=== PATIENT | male | born 1950 | race Caucasian/White ===

== ENCOUNTER 2023-11-27 21:59 | Inpatient (IN) | payer MEDICARE, OTHER, SELFPAY ==
[2023-11-27 17:44] VITALS: BP 134/76
[2023-11-27 18:10] LABS: % Basophils 0.2 % (0-2); % Eosinophils 0.1 % (0-6); % Lymphocytes 5.8 % (20.5-51.1); % Monocytes 11.8 % (1.7-9.3); % Neutrophils 81.1 % (42.2-75.2); Absolute Immature Granulocytes 0.1 10^3/uL (0-0.05); Absolute Lymphocytes 0.6 10^3/uL (1.2-3.4); Absolute Monocytes 1.2 10^3/uL (0.1-0.6); Absolute Neutrophils 8.3 10^3/uL (1.4-6.5); Hematocrit 35.4 % (39.0-52.0); Mean Corp Hgb Conc. 33.9 g/dL (33.0-37.0); Mean Corpuscular Hgb 29.1 pg (27.0-31.0); Mean Corpuscular Volume 85.7 fL (80.0-94.0); Mean Platelet Volume 10.4 fL (7.4-10.4); Nucleated Red Blood Cells % 0 % (-); Platelet Count 371 10^3/uL (130-400); Red Blood Cell Count 4.13 10^6/uL (4.70-6.10); Red Cell Dist. Width 12.3 % (11.5-14.5); White Blood Cell Count 10.2 10^3/uL (4.8-10.8)
[2023-11-27 18:30] LABS: NT-proBNP 325 pg/ml
[2023-11-27 18:31] LABS: ALT (SGPT) 61 U/L (0-50); AST (SGOT) 43 U/L (17-59); Albumin 3.5 g/dl (3.5-5.0); Alkaline Phosphatase 102 U/L (38-126); Blood Urea Nitrogen 48 mg/dl (9-20); Calcium 8.8 mg/dl (8.4-10.2); Carbon Dioxide 19 mmol/L (22-30); Chloride 101 mmol/L (98-107); Glucose 225 mg/dl (70-99); Potassium 5.7 mmol/L (3.5-5.1); Sodium 129 mmol/L (135-145); Total Bilirubin 1.3 mg/dl (0.2-1.3); Total Protein 5.9 g/dl (6.3-8.2); eGFR 32.83
[2023-11-27 19:21] VITALS: BP 131/80
--- NOTE | 2023-11-27 19:56 | ED.GENMED ---
History of Present Illness
General
Chief Complaint: Breathing Problem
Source: patient
Exam Limitations: none
Time Seen by Provider: 11/27/23 19:16
Nursing documentation reviewed up to this point in time: agreed with
Travel History
Have you had any contact with someone who has COVID-19?: No
Do you have any symptoms of coronavirus? Fever > 100 degrees, chills, cough, shortness of breath, sore throat, loss of taste or smell, muscle aches, or headache?: No
History of Present Illness
History of Present Illness:
The patient is a 73-year-old man with a past medical history of CHF, A-fib and renal transplant who reports that he has been retaining fluid, primarily in his abdomen, and is very short of breath on exertion. His reports that despite his Lasix
dose being tripled, he is still retaining fluid. He denies cough and fever. He denies chest pain. Patient was recently admitted for CHF and cardioversion for A-fib. He reports he has been taking his Eliquis as prescribed.
Past History
Past History
ED Past Medical History: HTN, IDDM and Renal failure
ED Past Surgical History: Other (Renal transplant)
Social History
Tobacco: Non-smoker
Alcohol: Occasional
Drug: None
Personal:
Living: with family
Employment: Employed
Family History
Family History: Other
Review of Systems
Review of Systems
Allergies reviewed?: Yes
Other source history: other (Spouse)
All Other Systems: ROS reviewed and negative except as documented in HPI and ROS
Constitutional: Reports weight gain and fatigue
EENT: Reports no symptoms
Respiratory: Reports trouble breathing
Cardiac: Reports no symptoms
ABD/GI: Reports no symptoms
: Reports no symptoms
Musculoskeletal: Reports no symptoms
Skin: Reports no symptoms
Neurological: Reports no symptoms
Endocrine: Reports no symptoms
Hematologic/Lymphatic: Reports no symptoms
Psychiatric: Reports no symptoms
Phy Exam
Physical Exam
Physical Exam:
Physical Exam
General: Nontoxic but tired appearing, and mildly tachypneic with speaking
Neck: supple. no meningeal signs. normal psoterior pharynx
Heart: s1/s2 regular rate and rhythm,
Lungs: Mild tachypnea with speaking. Basilar crackles
Abdomen: normal bowel sounds. not tender. no CVAT. Abdomen is firm and distended
Neuro: alert and oriented. no focal neurological deficits
Skin: no rash
Psychiatric: well kept. interactive and cooperative
Extremities: Trace edema bilateral lower extremities. Negative Homans' sign.
Scores
Heart Failure Risk
Heart Failure Risk Score: Not Applicable
Course
Orders/Labs/Results
Orders:
Orders
11/27/23 Dinner
Cholesterol Lowering
At Your Request: Full Participation
Fluid Restriction: 1200 mL/day (40 oz)
Cholesterol Lowering: Sodium, 2 Gram
11/27/23 17:50
Electrocardiogram (*1) Urgent
Reason for Study: Shortness of Breath
EKG- Treatment ONCE
11/27/23 18:00
BNP [NT-proBNP] Stat
Complete Blood Count/With Diff Urgent
Comprehensive Metabolic Panel Urgent
11/27/23 20:27
CR Chest - 2 Views Urgent
Comment:
Reason For Exam: SOB
11/27/23 21:28
Admit/Transfer Patient As Directed
Co-Sign Provider:
Level of Care: Inpatient admission
Assign to:: Telemetry
Physician / Group: emigdio
Diagnosis: hfpef exacerbation, PATRICE
Reason for Telemetry: Acute Heart Failure
Date to Stop Telemetry: 11/30/23
Time to Stop Telemetry: 11:00
Reason for Hospitalization: hfpef exacerbation, PATRICE
Expected length of stay greater than two midnights?: Yes
ELOS- Estimated Length of Stay in days: 2
I certify the patient meets the requirements for IP care: Yes
11/27/23 21:29
Code Status As Directed
Resuscitation Status: Full Code
11/27/23 21:42
Furosemide [Lasix] 80 mg IV NOW STA
11/27/23 21:43
US Abdomen Limited Urgent
Comment:
Reason For Exam: ascites
11/27/23 23:00
cycloSPORINE [SandIMMUNE] 75 mg PO HS
11/27/23 23:22
Acetaminophen [Tylenol] 1,000 mg PO Q6HPRN PRN
Dextrose 50%-Water [Dextrose 50% Syringe] 12.5 grams IV [id number] PRN
Glucagon [GlucaGen] 1 mg IM PRN PRN
Rosuvastatin Calcium [Crestor] 5 mg PO HS
Sotalol [Betapace] 80 mg PO Q12
11/27/23 23:22
VTE Contraindication Routine
VTE Mechanical Device Contraindication: Medical Contraindication
Pharmocologic Contraindication: Medical Contraindication
Activity As Directed
Activity Level: As Tolerated
Bedside Glucose Monitoring As Directed
Frequency: AC&HS
Comment: Change to q6h if pt on TPN, tube feeding or not eating
Bladder Scan As Directed
Follow Bladder Retention/Intermittent Cath Algorithm?: Yes
PRN if no void in __ hours: 6
Frequency: Per Retention Algorithm
If Bladder Scan Result >: 400
then:: Straight cath
I/O [Intake/ Output] As Directed
Frequency: q12h
Straight Cath As Directed
Frequency: Per Retention Algorithm
Additional Instructions: straight cath as needed per acute urinary retention algorithm for 24 hrs
Additional Instructions: for bladder scan greater than 400 mL
Vital Signs As Directed
Frequency: Per unit guidelines
Weight As Directed
Frequency: Daily
11/28/23 06:00
Complete Blood Count/With Diff IN AM
Comprehensive Metabolic Panel IN AM
11/28/23 07:30
Insulin Aspart Corrective Low [Novolog Flexpen-Low Resistance] See Protocol SC AC
11/28/23 08:00
Apixaban [Eliquis] 5 mg PO BID
Carvedilol [Coreg] 6.25 mg PO BID
Diltiazem Extended Release [Cardizem Cd] 240 mg PO DAILY
Furosemide [Lasix] 80 mg PO BID AT 0800,1600
Magnesium l-Lactate [Mag-Tab Sr] 84 mg PO BID
Prednisone [Deltasone] 5 mg PO DAILY
cycloSPORINE [SandIMMUNE] 100 mg PO DAILY
11/28/23 09:00
Cholecalciferol (Vitamin D3) [VITAMIN D3 (cholecalciferol)] 50 mcg PO DAILY@0900
11/30/23 11:00
DC Protocol for Telemetry ONCE
Abnormal Lab Results
11/27/23
18:00
RBC 4.13 L 10^6/uL
(4.70-6.10)
Hgb 12.0 L g/dL
(13.0-18.0)
Hct 35.4 L %
(39.0-52.0)
Abs Immat Gran (auto) 0.1 H 10^3/uL
(0-0.05)
Absolute Neuts (auto) 8.3 H 10^3/uL
(1.4-6.5)
Absolute Lymphs (auto) 0.6 L 10^3/uL
(1.2-3.4)
Absolute Monos (auto) 1.2 H 10^3/uL
(0.1-0.6)
Immature Gran % 1.0 H %
(0-0.5)
Neutrophils % 81.1 H %
(42.2-75.2)
Lymphocytes % 5.8 L %
(20.5-51.1)
Monocytes % 11.8 H %
(1.7-9.3)
Sodium 129 L mmol/L
(135-145)
Potassium 5.7 H mmol/L
(3.5-5.1)
Carbon Dioxide 19 L mmol/L
(22-30)
BUN 48 H mg/dl
(9-20)
Creatinine 2.1 H mg/dL
(0.7-1.3)
Glucose 225 H mg/dl
(70-99)
ALT 61 H U/L
(0-50)
Total Protein 5.9 L g/dl
(6.3-8.2)
11/27/23 18:00
11/27/23 18:00
Vital Signs
Initial and Last Documented VS:
Initial Vital Signs
Temp Pulse Resp BP Pulse Ox
97.8 F 64 16 134/76 97
11/27/23 17:44 11/27/23 17:44 11/27/23 17:44 11/27/23 17:44 11/27/23 17:44
Last Documented Vital Signs
Temp Pulse Resp BP Pulse Ox
97.7 F 70 16 128/82 93
11/27/23 23:40 11/27/23 23:40 11/27/23 23:40 11/27/23 23:40 11/27/23 23:40
MDM/Problems Addressed
Differential Diagnosis Includes:
Acute renal failure, acute CHF, PE, pneumonia
MDM/Problems Addressed:
Patient presents with acute shortness of breath and weight gain
Chronic conditions affecting care: Cardiomyopathy, Arrhythmia and Kidney disease
Acute Exacerbation and/or Progression of Chronic Illness:
Patient's presentation may represent acute exacerbation of chronic renal disease
Acute Exacerbation and/or Progression of Chronic Illness: HTN
*Radiology
Radiology exam reviewed: preliminary read by ED provider (Chest x-ray read by me. Bilateral pleural effusions) and radiology read reviewed
*Pulse Oximetry
Patient hypoxic: no
*EKG
Interpreted by ED Provider?: Yes
Interpretation: abnormal
Comparison EKG: no changes
Rate: normal
Rhythm: sinus
[place]: normal axis
Interval: normal interval
QRS Pattern: low voltage
Ischemia: non-specific ST changes
*Semi Driver Interpretation
Rate: normal
Interpretation: normal
Rhythm: sinus
*Critical Care Note
Total Time (30-74mins, 75-104mins- exclusive of procedures): Not Applicable
Data Reviewed
Review of Other/Old Records Reveals: Discharge Summary (Discharge summary reviewed from 11/24/2023 when patient had been admitted for hypoxic respiratory failure thought to be due to A-fib and CHF)
Source: patient, spouse and previous hospital records
Patient Management
Discussion with other providers: Hospitalist
Escalation/DeEscalation of care consider admission/obs:
Given patient's tachypnea and acute renal failure, decision made to admit the patient
ED Attending Note
-
Portions of this chart may have been created with voice recognition software.� Occasional wrong word or��sound alike� substitutions may have occurred due to the inherent limitations of voice recognition software.
Discharge Plan
Departure
Patient Disposition: Admit
Date of Disposition: 11/27/23
Time of Disposition: 20:13
Admit to: Telemetry
Presentation/result/management discussed w/ accepting MD/DO: Hospitalist
Patient with high blood pressure during this ER visit?: Yes
Condition: Fair
Covid-19: Not Applicable
Discharge Problem:
Acute renal failure (ARF), Acute hyperkalemia, Bilateral pleural effusion
Interventions
Interventions:
*Risk Screen - Suicide Last Done: 11/28/23 00:03
*General Assessment Last Done: 11/27/23 17:44
*Neglect/Abuse Screening Last Done: 11/27/23 17:44
ED- Fall Risk Assessment Last Done: 11/27/23 21:03
*ED COVID-19 Vaccine History Last Done: 11/28/23 00:03
*Nursing Disposition Last Done: 11/27/23 23:20
ED- Cardiac Assessment Last Done: 11/27/23 21:03
ED- Pulmonary Assessment Last Done: 11/27/23 21:03
Discharge Date and Time
Discharge Date/Time: 11/27/23 23:20
--- NOTE | 2023-11-27 20:51 | HPS.HSE ---
Family Physician
-
Family Physician: Naomy Conteh
Chief Complaint
-
Allergies
Allergy/AdvReac Type Severity Reaction Status Date / Time
epinephrine [Epinephrine] Allergy passed out Verified 11/18/23 07:54
ibuprofen [From Advil] Allergy Kidney Verified 11/19/23 21:53
transplant
Home Medications
prednisone 5 mg tablet 5 mg PO DAILY 09/13/20
rosuvastatin 5 mg tablet 5 mg PO HS High cholesterol 09/28/21
magnesium chloride 71.5 mg (magnesium chloride) tablet,delayed release (Slow-Mag) 143 mg PO BID 11/16/23
acetaminophen 500 mg tablet (Tylenol Extra Strength) 1,000 mg PO Q6HPRN PRN mild pain 11/18/23
cholecalciferol (vitamin D3) 50 mcg (2,000 unit) capsule 50 mcg PO DAILY@0900 11/18/23
cyclosporine 100 mg capsule 100 mg PO DAILY 11/18/23
cyclosporine 25 mg capsule 75 mg PO HS 11/18/23
insulin glargine 100 unit/mL (3 mL) subcutaneous pen (Lantus Solostar U-100 Insulin) 25 unit SC BID 11/18/23
apixaban 5 mg tablet (Eliquis) 5 mg PO BID #60 tabs 11/24/23
carvedilol 6.25 mg tablet 6.25 mg PO BID #60 tabs 11/24/23
diltiazem HCl 240 mg capsule,extended release 24 hr 240 mg PO DAILY #30 caps 11/24/23
potassium chloride 20 mEq tablet,extended release(part/cryst) 40 meq PO DAILY #30 tabs 11/24/23
sotalol 80 mg tablet 80 mg PO Q12H #60 tabs 11/24/23
furosemide 40 mg tablet 80 mg PO BID 11/27/23
tirzepatide 5 mg/0.5 mL subcutaneous pen injector (Mounjaro) 5 mg SC TU 11/27/23
History of Present Illness
73-year-old male with past medical history of HFpEF, pericardial effusion, atrial fibrillation on Eliquis, hypertension, renal transplant, diabetes, obesity, hyperlipidemia presenting for worsening abdominal distention since his recent discharge.
He has gained 12 pounds in the past few weeks compared to his dry weight. He is also continue have shortness of breath with minimal exertion. His lower extremity is not so severe. He denies any chest pain. He does feel dizzy when he stands up
but denies any episodes of passing out. He denies any cough or fevers. He has been making minimal urine despite increased dose of Lasix.
Patient was recently admitted from 11/18 to 11/24 for CHF exacerbation and rapid atrial fibrillation. He was diuresed, started on heparin and Cardizem. Cardioversion and BRITTANY was performed unsuccessfully. He underwent repeat cardioversion which was
successful. He was maintained on sotalol and Cardizem and Coreg for rate control and transition to Eliquis. Echocardiogram showed pericardial effusion that appears to be improving. He was recommended follow-up with transplant team at [facility].
Medical History
Past Medical History
Past Medical History: Reports Other (HFpEF, pericardial effusion, atrial fibrillation on Eliquis, hypertension, renal transplant, diabetes, obesity, hyperlipidemia)
Past Surgical History: Reports Other ((Renal transplant))
Social History
Tobacco: Non-smoker
Alcohol: Occasional
Drug: None
Family History
Family History: Not pertinent
Allergies / Home Medications
Allergies reflects when Allergies were last updated in [employer].
Home Medications with original date entered in [employer]
Allergy/Medication List:
Allergies
Allergy/AdvReac Type Severity Reaction Status Date / Time
epinephrine [Epinephrine] Allergy passed out Verified 11/18/23 07:54
ibuprofen [From Advil] Allergy Kidney Verified 11/19/23 21:53
transplant
Home Medications
prednisone 5 mg tablet 5 mg PO DAILY 09/13/20
rosuvastatin 5 mg tablet 5 mg PO HS High cholesterol 09/28/21
magnesium chloride 71.5 mg (magnesium chloride) tablet,delayed release (Slow-Mag) 143 mg PO BID 11/16/23
acetaminophen 500 mg tablet (Tylenol Extra Strength) 1,000 mg PO Q6HPRN PRN mild pain 11/18/23
cholecalciferol (vitamin D3) 50 mcg (2,000 unit) capsule 50 mcg PO DAILY@0900 11/18/23
cyclosporine 100 mg capsule 100 mg PO DAILY 11/18/23
cyclosporine 25 mg capsule 75 mg PO HS 11/18/23
insulin glargine 100 unit/mL (3 mL) subcutaneous pen (Lantus Solostar U-100 Insulin) 25 unit SC BID 11/18/23
apixaban 5 mg tablet (Eliquis) 5 mg PO BID #60 tabs 11/24/23
carvedilol 6.25 mg tablet 6.25 mg PO BID #60 tabs 11/24/23
diltiazem HCl 240 mg capsule,extended release 24 hr 240 mg PO DAILY #30 caps 11/24/23
potassium chloride 20 mEq tablet,extended release(part/cryst) 40 meq PO DAILY #30 tabs 11/24/23
sotalol 80 mg tablet 80 mg PO Q12H #60 tabs 11/24/23
furosemide 40 mg tablet 80 mg PO BID 11/27/23
tirzepatide 5 mg/0.5 mL subcutaneous pen injector (Mounjaro) 5 mg SC TU 11/27/23
Review of Systems
-
History Source: Patient
A 12 point ROS was completed and negative except as noted: Yes
Constitutional: Reports See HPI
EENT: Reports No Symptoms
Respiratory: Reports See HPI
Cardiac: Reports See HPI
Abdomen/GI: Reports No Symptoms
: Reports No Symptoms
Musculoskeletal: Reports No Symptoms
Skin: Reports No Symptoms
Neurological: Reports No Symptoms
Endocrine: Reports No Symptoms
Hematologic/Lymphatic: Reports No Symptoms
Psych: Reports No Symptoms
Physical Exam
Vital Signs
Vital Signs
Temp Pulse Resp BP Pulse Ox
97.8 F 85 28 131/80 97
11/27/23 17:44 11/27/23 19:21 11/27/23 19:21 11/27/23 19:21 11/27/23 19:21
Physical Exam
General: Well Developed, Well Nourished and No Apparent Distress
HEENT: NormoCephalic, Moist mucous membranes and Atraumatic
Respiratory: Clear
Cardiac: S1/S2 and Regular Rhythm; No Murmur or Rub
GI: Soft, Non Tender, Normal Bowel Sounds and Distended; No Organomegaly
Rectal: Deferred by Provider
Musculoskeletal: No Clubbing, No Cyanosis and No Edema
Skin: No Rash
Neuro: Nonfocal/grossly intact
Laboratory Results
-
11/27/23 18:00
11/27/23 18:00
Laboratory Results
Total Bilirubin 1.3 mg/dl (0.2-1.3) 11/27/23 18:00
AST 43 U/L (17-59) 11/27/23 18:00
ALT 61 U/L (0-50) H 11/27/23 18:00
Alkaline Phosphatase 102 U/L (38-126) 11/27/23 18:00
Data Reviewed
-
Lab Data: Labs Reviewed by me
Old Records: Reviewed
Impression/Plan
-
IMPRESSION:
PLAN:
# Volume overload, secondary to acute on chronic HFpEF exacerbation
-Difficult situation as not responding adequately to 80 Lasix BID oral
-Monitor I's and O's
-Daily weights
-Bladder scan protocol
-Give 80 IV Lasix now and observe response
-Check abdominal ultrasound to evaluate for ascites that can be drained
-nephrology consulted
# PATRICE
# Hyperkalemia
-Creatinine 2.1 from 1.2
-Hold potassium supplement
Hyponatremia secondary to volume overload
-Need to monitor with further diuresis
-Fluid restriction 40 oz
History of renal transplant
-Continue cyclosporine
-Continue prednisone
History of pericardial effusion secondary to everolimus versus heart failure
Recently diagnosed atrial fibrillation
-Continue Eliquis
-Continue Coreg
-Continue diltiazem
-Continue sotalol
Essential hypertension
Type 2 diabetes
-Continue Lantus 25 units twice daily
-Insulin sliding scale
Hyperlipidemia
-Continue statin
Obesity
Full code
DVT prophylaxis�Eliquis
Cardiac diet
[2023-11-27 21:00] VITALS: BP 101/86
[2023-11-27 22:37] VITALS: BP 116/79
[2023-11-27] MEDS: LASIX 80 MG IV (22:37)
[2023-11-27 23:40] VITALS: BP 128/82
[2023-11-27 23:53] LABS: Glucose - Point of Care 176 mg/dl (70-99)
[2023-11-28] VITALS (12 sets, daily range): BP systolic 99–133; BP diastolic 68–94; BMI 36.6; BMI 36.4
[2023-11-28] MEDS: BETAPACE PO (00:21)
[2023-11-28] MEDS: SandIMMUNE PO (00:21)
[2023-11-28] MEDS: CRESTOR PO (00:21)
--- NOTE | 2023-11-28 00:37 | PTCARENOTE ---
Patient arrived from the ED via stretcher at approximately 2315. Patient ambulated from stretcher to bed x1 assist - Patient's gait steady, but complains of mild dizziness and shortness of breath on exertion. Patient reports these resolve quickly
with rest. Patient AAOx3, [place]. VSS as documented. Assessment as documented. Patient oriented to room. Bed in lowest position. Call andrew within reach.
[2023-11-28 05:41] LABS: % Basophils 0.2 % (0-2); % Eosinophils 0.2 % (0-6); % Immature Granulocytes 0.7 % (0-0.5); % Lymphocytes 8.2 % (20.5-51.1); % Neutrophils 75.7 % (42.2-75.2); Absolute Immature Granulocytes 0.1 10^3/uL (0-0.05); Absolute Lymphocytes 0.8 10^3/uL (1.2-3.4); Absolute Monocytes 1.5 10^3/uL (0.1-0.6); Absolute Neutrophils 7.4 10^3/uL (1.4-6.5); Hematocrit 34.5 % (39.0-52.0); Hemoglobin 11.4 g/dL (13.0-18.0); Mean Corpuscular Hgb 28.7 pg (27.0-31.0); Mean Corpuscular Volume 86.9 fL (80.0-94.0); Mean Platelet Volume 10.7 fL (7.4-10.4); Nucleated Red Blood Cells % 0 % (-); Platelet Count 357 10^3/uL (130-400); Red Blood Cell Count 3.97 10^6/uL (4.70-6.10); Red Cell Dist. Width 12.2 % (11.5-14.5); White Blood Cell Count 9.7 10^3/uL (4.8-10.8)
[2023-11-28 06:15] LABS: ALT (SGPT) 57 U/L (0-50); AST (SGOT) 32 U/L (17-59); Alkaline Phosphatase 84 U/L (38-126); Blood Urea Nitrogen 55 mg/dl (9-20); Carbon Dioxide 20 mmol/L (22-30); Chloride 98 mmol/L (98-107); Estimated Creatinine Clearance 31 ml/min; Glucose 168 mg/dl (70-99); Sodium 131 mmol/L (135-145); Total Bilirubin 1.2 mg/dl (0.2-1.3); Total Protein 5.3 g/dl (6.3-8.2); eGFR 26.63
[2023-11-28 07:13] LABS: Glucose - Point of Care 151 mg/dl (70-99)
[2023-11-28] MEDS: LANTUS 0.25 UNITS SC (08:27)
[2023-11-28] MEDS: ELIQUIS 5 MG PO (08:29)
[2023-11-28] MEDS: LASIX 80 MG PO (08:29)
[2023-11-28] MEDS: COREG 6.25 MG PO ×2 (08:29→20:13)
[2023-11-28] MEDS: BETAPACE 80 MG PO ×2 (08:30→20:13)
[2023-11-28] MEDS: DELTASONE 5 MG PO (08:30)
[2023-11-28] MEDS: MAG-TAB SR 84 MG PO ×2 (08:30→22:40)
[2023-11-28] MEDS: CARDIZEM CD 240 MG PO (08:30)
[2023-11-28] MEDS: VITAMIN D3 (cholecalciferol) 50 MCG PO (08:38)
[2023-11-28] MEDS: NOVOLOG FLEXPEN-LOW RESISTANCE 1 UNITS SC ×2 (08:38→18:37)
--- NOTE | 2023-11-28 09:54 | CON.MD ---
Consultation - Medical
-
Assessment:
PATRICE
Hyperkalemia
hyponatremia
mild gap met acidosis
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
pericardial effusion
Afib s/p CV 11/17
FSGS
Igg Gammopathy
T2DM
Anemia
HTN
BK viremia (off MMF)
Nephrolithiasis
Obesity
VIKASH
recurrent skin squamous cell cancer
Plan:
Recent d/c few days ago for CHF and Afib
now returns with PATRICE and CHF exacerbation
PATRICE-highly suspect cardiorenal with known pericardial effusion, CHF
check UA, Fena, renal US
also follow bladder scan
cr is up even after diuretics
BP are soft on med, need card eval
probably repeat echo and intervention if needed and RHC
check cyclosporin level
we may have to hold lasix
strict FR 40 ounces/day and low salt diet
IS: recent change from everolimus back to cyclosporine, level drawn again but not trough
continue prednisone 5mg daily. off MMF for BK viremia
avoid nephrotoxins
monitor hyponatremia
hyperkalemia is better
cont- holding losartan. hold mounjaro
d/w pt and
d/w primary
[id number]
[2023-11-28] MEDS: SandIMMUNE 100 MG PO (10:03)
[2023-11-28 10:36] LABS: Urine Albumin 1+ (Neg - Trace); Urine Bilirubin 1+ (Negative); Urine Character Clear (Clear); Urine Color Yellow; Urine Glucose Negative (Negative); Urine Ketone Negative (Negative); Urine Leukocyte 1+ (Negative); Urine Nitrite Negative (Negative); Urine Occult Blood Negative (Negative); Urine Urobilinogen 1+ (Neg - 1+)
[2023-11-28 10:55] LABS: Urine Bacteria Few (Negative); Urine Red Blood Cell None Seen /HPF (0-2)
--- NOTE | 2023-11-28 10:55 | W.PN.HOSP.TC ---
Today's Communication/Plan
-
see A/P
Assessment / Plan
Assessment / Plan
HPI: 73-year-old male with past medical history of HFpEF, pericardial effusion, atrial fibrillation on Eliquis, hypertension, renal transplant, diabetes, obesity, hyperlipidemia; presented for worsening abdominal distention since his recent
discharge.�
He has gained 12 pounds in the past few weeks compared to his dry weight.�He is also continue have shortness of breath with minimal exertion.� His lower extremity is not so severe.� He denies any chest pain.� He does feel dizzy when he stands up but
denies any episodes of passing out.� He denies any cough or fevers.� He has been making minimal urine despite increased dose of Lasix.
Patient was recently admitted from 11/18 to 11/24 for CHF exacerbation and rapid atrial fibrillation.� He was diuresed, started on heparin and Cardizem.� Cardioversion and BRITTANY was performed unsuccessfully.� He underwent repeat cardioversion which was
successful.� He was maintained on sotalol and Cardizem and Coreg for rate control and transition to Eliquis.�Echocardiogram showed pericardial effusion that appears to be improving.� He was recommended follow-up with transplant team at [facility].
A/P:
# Volume overload, secondary to acute on chronic HFpEF exacerbation and ?increased pericardial effusion
# Hyponatremia secondary to volume overload
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
Abdominal ultrasound: Trace free fluid/ascites is seen in the right upper quadrant of the abdomen. No additional abdominal ascites is identified. Small bilateral pleural effusions are noted, left slightly greater than right.
Follow echo
Nephrology on board
Card consulted, possible plan for pericardiocentesis after Eliquis washout
# PATRICE, likely cardiorenal syndrome
# Hyperkalemia, resolved
Creatinine 2.1 -> 2.5; from baseline 1.2
Hold potassium supplement
renal US: No acute abnormality of right iliac fossa transplant kidney identified
# History of renal transplant
Continue cyclosporine
Continue prednisone
renal US: No acute abnormality of right iliac fossa transplant kidney identified
# History of pericardial effusion secondary to everolimus versus heart failure
# Recently diagnosed atrial fibrillation
Continue Eliquis
Continue Coreg, Diltiazem, Sotalol
# Essential hypertension
# Type 2 diabetes
Continue Lantus 25 units twice daily
Insulin sliding scale
# Hyperlipidemia
Continue statin
# Obesity
BMP 36
Full code
DVT prophylaxis�Off Eliquis, use SCD
DW RN
DW at bedside
Anticipated Discharge: > 48 hours
Subjective/Interval History
-
Date of Service: November 28, 2023
Objective Data
-
Labs:
Laboratory Results
11/28/23
05:14
WBC 9.7
Hgb 11.4 L
Hct 34.5 L
Plt Count 357
Sodium 131 L
Potassium 5.0
Chloride 98
Carbon Dioxide 20 L
BUN 55 H
Creatinine 2.5 H
Glucose 168 H
Calcium 9.0
Total Bilirubin 1.2
AST 32
ALT 57 H
Alkaline Phosphatase 84
Vital Signs:
Vital Signs
Temp Pulse Resp BP Pulse Ox
36.3 C 68 18 118/70 95
11/28/23 08:11 11/28/23 08:30 11/28/23 08:11 11/28/23 08:30 11/28/23 08:11
I&O
11/27/23 11/28/23 11/29/23
06:59 06:59 06:59
Intake Total 960 / 960
Output Total 380 / 380 150 / 150
Balance 580 / 580 -150 / -150
Review of Systems
-
History Source: Patient
Respiratory: Reports Trouble Breathing
Abdomen/GI: Reports Other (abdominal distension)
Physical Exam
-
General: Well Developed, Well Nourished, No Apparent Distress, Comfortable, Conversant and Obese; Negative Respiratory Distress
HEENT: Normocephalic, Atraumatic, Nose Appears Normal and Ears Appear Normal; Negative Oxygen
Respiratory: Clear to Auscultation and Non Labored Respirations
Cardiac: Regular Rhythm and S1/S2
GI: Soft, Nontender, Nondistended and Normal Bowel Sounds
Skin: Warm and Dry
Neuro: Awake, Alert, Oriented and AO x 3
Psych: Calm and Intact Judgement/Insight
Data Reviewed
-
Labs: Labs Reviewed by me
[2023-11-28 10:56] LABS: Urine Granular Cast 0-2 /LPF (0)
--- NOTE | 2023-11-28 11:12 | CON.CAR ---
Addendum entered and electronically signed by Donte Caceres MD 11/28/23 13:10:
Patient seen and examined in collaboration with HVAC TECHNICIAN RESIDENTIAL; agree with below.
-73-year-old male with medical history as outlined below, including renal transplant and PAF (on Eliquis); admitted with PATRICE and shortness of breath.
-Pulmonary rate on echocardiogram today shows a large pericardial effusion with likely early signs of tamponade.
-Hold Eliquis; did receive a dose this a.m.
-Likely pericardiocentesis will be planned for tomorrow a.m. (right heart cath will also be done at that time); discussed with Interventional Cardiology.
-Continue playground monitor; notify Cardiology for any signs of hemodynamic instability.
-NPO after midnight.
Original Note:
Consultation
Consultation Request
Date/Time Consultation Requested: 11/28/23 9:30a
Date/Time Consultation Performed: 11/28/23 10:55a
Requesting Provider: Dr. Yuen
Performing Provider: CHEYENNE Thao for Dr. Caceres
Reason for Consultation: sob, HFrEF, pericardial effusion
Medical History
-
Chief Complaint: sob, weight gain, abdominal bloating
History of Present Illness:
Mr. Waterman is a 73 yo male with HTN, HLD, DMII, renal transplant 2020 followed at [facility], new onset paroxysmal Afib last week s/p BRITTANY/DCCV (11/23/23) on Sotalol and Eliquis, PATRICE/CKD, and moderate pericardial effusion on echo 11/20/23, who presents to
the ER from home with worsened SOB, LE edema and abdominal bloating. He was d/c on 11/24/23 on Lasix 40mg BID, which he was taking at home. He spoke with nephrology 11/26/23 who increased Lasix to 80mg BID, but still no improvement so he came to the
ER. He is admitted to the hospitalist service and we are consulted for SOB.
Past Medical History
Past Medical History: Other (as above)
Past Surgical History: Other (renal transplant 2019)
Social History
Tobacco: Non-Smoker
Alcohol: None
Personal:
Living: With Family
Family History
Family History: Reviewed & Not Pertinent
Allergies / Home Medications
Allergy/AdvReac Type Severity Reaction Status Date / Time
epinephrine [Epinephrine] Allergy passed out Verified 11/18/23 07:54
ibuprofen [From Advil] Allergy Kidney Verified 11/19/23 21:53
transplant
Medication Instructions Recorded Confirmed Type
prednisone 5 mg tablet 5 mg PO DAILY 09/13/20 11/27/23 History
rosuvastatin 5 mg tablet 5 mg PO HS High cholesterol 09/28/21 11/27/23 History
magnesium chloride 71.5 mg 143 mg PO BID 11/16/23 11/27/23 History
(magnesium chloride)
tablet,delayed release (Slow-Mag)
acetaminophen 500 mg tablet 1,000 mg PO Q6HPRN PRN mild pain 11/18/23 11/27/23 History
(Tylenol Extra Strength)
cholecalciferol (vitamin D3) 50 50 mcg PO DAILY@0900 11/18/23 11/27/23 History
mcg (2,000 unit) capsule
cyclosporine 100 mg capsule 100 mg PO DAILY 11/18/23 11/27/23 History
cyclosporine 25 mg capsule 75 mg PO HS 11/18/23 11/27/23 History
insulin glargine 100 unit/mL (3 25 unit SC BID 11/18/23 11/27/23 History
mL) subcutaneous pen (Lantus
Solostar U-100 Insulin)
apixaban 5 mg tablet (Eliquis) 5 mg PO BID #60 tabs 11/24/23 11/27/23 Rx
carvedilol 6.25 mg tablet 6.25 mg PO BID #60 tabs 11/24/23 11/27/23 Rx
diltiazem HCl 240 mg 240 mg PO DAILY #30 caps 11/24/23 11/27/23 Rx
capsule,extended release 24 hr
potassium chloride 20 mEq 40 meq PO DAILY #30 tabs 11/24/23 11/27/23 Rx
tablet,extended release(part/cryst)
sotalol 80 mg tablet 80 mg PO Q12H #60 tabs 11/24/23 11/27/23 Rx
furosemide 40 mg tablet 80 mg PO BID 11/27/23 11/27/23 History
tirzepatide 5 mg/0.5 mL 5 mg SC TU 11/27/23 11/27/23 History
subcutaneous pen injector
(Mounjaro)
Review of Systems
-
History Source: Patient
All other systems: Negative unless noted
Physical Exam
Vital Signs
Temp Pulse Resp BP Pulse Ox
97.4 F 68 18 118/70 95
11/28/23 08:11 11/28/23 08:30 11/28/23 08:11 11/28/23 08:30 11/28/23 08:11
Lab Results
11/28/23 05:14
11/28/23 05:14
Gun-P-Pwpunduduzb Pept 325 pg/ml 11/27/23 18:00
Physical Exam
General: Well Developed, Well Nourished and No Apparent Distress
HEENT: Normocephalic and Anicteric
Respiratory: Crackles (bibasilar )
Cardiac: S1/S2, Regular Rhythm and Peripheral Edema (mild to moderate b/l LE)
Breast: Deferred by me
GI: Soft, Non Tender, Normal Bowel Sounds and Distended (mildly)
Rectal: Deferred by Provider
Musculoskeletal: No Clubbing and No Cyanosis
Skin: Warm and Dry
Neuro: AO x 3
Psych: Calm
Impression / Plan
-
SOB - with weight gain and abdominal bloating.
- no improvement with increased outpatient Lasix to 80mg BID for 2 days.
- IV Lasix with close monitoring of renal function.
- need to check an echo given moderate pericardial effusion on echo 11/20/23 and has been on Eliquis since s/p BRITTANY/DCCV.
Afib - paroxysmal.
- maintaining NSR on Sotalol.
- denies palpitations.
- s/p BRITTANY/DCCV 11/23/23.
- OAC with Eliquis 5mg BID.
Pericardial effusion - new, moderate on echo 11/20/23.
- now with worsened SOB and is on Eliquis, check echo now.
- everolimus stopped.
PATRICE - creatinine up to 2.5 today.
- at d/c 11/24/23 creatinine was 1.2.
- nephrology is following.
HTN - stable on meds, monitor.
Dyslipidemia - stable on Rosuvastatin, continue.
DMII - per hospitalist.
Renal transplant - in 2019 at [facility], follows there.
- per nephrology.
Data Reviewed
-
EKG: Tracing Personally Visualized and interpreted (NSR 67 bpm)
Radiology: Report Reviewed by me (CXR: small b/l pleural effusions)
Ultrasound: Report Reviewed by me (abd U/S: trace free fluid/ascites seen in RUQ of the abdomen)
Labs: Labs Reviewed by me
Old Records: Reviewed
[2023-11-28 11:28] LABS: Protein/creatinine Ratio 0.4; Urine Protein 92 mg/dl; Urine Sodium < 5 mmol/L (30-90)
--- NOTE | 2023-11-28 11:30 | CM ---
Initial assessment completed with . Patient was at diagnostic testing. 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
3 D-I-L's. has a RW and has been using it since discharge from hospital last week, kidney transplant 3 years ago. Pharmacy is [facility] in [place] and PCP is Dr. Naomy Conteh. Anticipate no needs at discharge.
[2023-11-28 12:41] LABS: Glucose - Point of Care 233 mg/dl (70-99)
[2023-11-28] MEDS: NOVOLOG FLEXPEN-LOW RESISTANCE 2 UNITS SC (13:25)
[2023-11-28] MEDS: LASIX PO (15:49)
--- NOTE | 2023-11-28 17:43 | ITS.CL.PN ---
Stereoplotter Operator - Procedure Note
Procedure
Procedure Note:
PERICARDIOCENTESIS PROCEDURE NOTE
Date of procedure: 11/28/2023
Referring Physician/Provider: Donte Caceres M.D.
Indication: Large pericardial effusion, early tamponade.
Procedure:
After obtaining consent, the patient was brought to the cardiac cheesemaking laborer and placed in a recumbent position. Echocardiogram was used to ascertain the best approach vector. A(n) apical approach was selected. The fifth intercostal space along the
lateral clavicular line was anesthetized with 1% lidocaine. Under ultrasound guidance, a micropuncture needle was advanced into the pericardial space under negative pressure. After obtaining flashback of pericardial fluid, the micropuncture wire was
advanced into the pericardial space and the needle was removed. The micropuncture sheath was advanced over the wire and the wire and dilator were removed. Agitated saline was injected through the micropuncture sheath confirming its presence in the
pericardial space on echocardiography. A 0.035 inch J-wire was advanced through the micropuncture sheath and into the pericardial space. The micropuncture sheath was removed and a 6 [place] sheath was advanced over the 0.035 inch wire. A pigtail
catheter was advanced through the sheath over the J-wire and placed in the pericardial space. The J-wire was removed. The pericardial pressure was measured. A sufficient sample of pericardial fluid was removed and sent for laboratory testing
(hemoglobin, hematocrit, white blood cell count, LDH, albumin, total protein, cytology and culture). The pigtail catheter was then connected to a Vacutainer and the pericardial space was evacuated. Serial echocardiography confirmed reduction in the
pericardial effusion from severe to trace. All evidence of tamponade was removed. The 6 [place] sheath was sutured into place. The pigtail catheter was likewise sutured into place then curled around the sheath and covered by a sterile Tegaderm.
Repeat pericardial pressure was measured, confirming significant reduction. The pigtail catheter was then connected to a ELISEO drain to suction. The patient reported significant improvement in their shortness of breath.
Procedure Details:
Approach: Apical
Sheath/Drain size (Fr) 6
Pericardial Volume (mL): 660
Effusion type: Bloody.
Non-effusion blood loss (mL): Negligible.
Pericardial pressures
Pre drainage (mmHg): 26
Post drainage (mmHg): 12
Radiation dose:
Dose (mGy): 5.48
DAP (Gy*cm2): 0.7413
Fluoroscopy Time (minutes): 0.2
Conclusions:
1. Successful placement of a 6 [place] pericardial drain via apical approach.
2. Pericardial fluid has been sent for laboratory analysis.
Copy to: Donte Caceres M.D., Naomy Conteh D.O., Gallito Cunningham M.D.
Alex Yusuf DO, FACC, FACP
[2023-11-28 18:13] LABS: Body Fluid Glucose 81 mg/dl; Body Fluid Protein 5.3 g/dl
--- NOTE | 2023-11-28 18:13 | PTCARENOTE ---
Rec'd pt from recyclable materials collector awake and alert with left chest pericardial drain with 50ml serosanguineous drainage. Bedrest for 2 hours. Pt afib on monitor, RA. Pulse ox 95%. See worklist for VS/I and O and assessments.
[2023-11-28 18:33] LABS: Glucose - Point of Care 167 mg/dl (70-99)
[2023-11-28] MEDS: TYLENOL 1000 MG PO (18:39)
[2023-11-28 18:45] LABS: Body Fluid LDH 7281 U/L
[2023-11-28 19:04] LABS: Body Fluid Hematocrit 9.1 %; Body Fluid WBC 14960 /CUMM
[2023-11-28 19:32] LABS: Body Fluid Second Tech EYM
[2023-11-28] MEDS: COLCHICINE 0.599999999999999978 MG PO (20:13)
[2023-11-28 21:44] LABS: Glucose - Point of Care 217 mg/dl (70-99)
[2023-11-28] MEDS: SandIMMUNE 75 MG PO (22:40)
[2023-11-28] MEDS: CRESTOR 5 MG PO (22:40)
[2023-11-28] MEDS: LANTUS 0.100000000000000006 UNITS SC (22:41)
--- NOTE | 2023-11-28 23:06 | PTCARENOTE ---
patient resting in bed comfortably. denies any pain at this time. ambulated to the BR, standby assist, steady on his feet. denies any lightheadedness/dizziness. dyspnea on exertion noted. 95% on RA. Afib on tele 90s-100s. bp 110/70. L chest
pericardial drain intact. serosanguineous drainage. no new drainage at this time. reviewed plan of care with patient and verbalized understanding. educated patient to inform RN with any changes. call andrew within reach.
[2023-11-29] VITALS (9 sets, daily range): BP systolic 79–149; BP diastolic 62–88; BMI 35.8
[2023-11-29 04:22] LABS: Hematocrit 34.5 % (39.0-52.0); Hemoglobin 11.6 g/dL (13.0-18.0); Mean Corp Hgb Conc. 33.6 g/dL (33.0-37.0); Mean Corpuscular Hgb 28.8 pg (27.0-31.0); Mean Corpuscular Volume 85.6 fL (80.0-94.0); Mean Platelet Volume 10.6 fL (7.4-10.4); Platelet Count 321 10^3/uL (130-400); Red Blood Cell Count 4.03 10^6/uL (4.70-6.10); White Blood Cell Count 8.9 10^3/uL (4.8-10.8)
[2023-11-29 04:45] LABS: Blood Urea Nitrogen 60 mg/dl (9-20); Calcium 8.3 mg/dl (8.4-10.2); Carbon Dioxide 24 mmol/L (22-30); Chloride 102 mmol/L (98-107); Estimated Creatinine Clearance 31 ml/min; Glucose 155 mg/dl (70-99); Magnesium 2.3 mg/dl (1.6-2.3); Potassium 4.7 mmol/L (3.5-5.1); Sodium 130 mmol/L (135-145); eGFR 26.63
--- NOTE | 2023-11-29 04:49 | PTCARENOTE ---
patient slept well overnight. Afib on [id number]. patient denies any palpitations. bp 79/62. recheck on R leg-97/67. recheck after 30 min-101/74. patient denies lightheadedness/dizziness. awake and alert. urinating yellow urine in the urinal. no
new output noted overnight in pericardial drain. site intact. call andrew within reach.
[2023-11-29 07:15] LABS: Body Fluid Granulocytes 17 %; Body Fluid Lymphocytes 16 %; Body Fluid Macrophages 67 %
--- NOTE | 2023-11-29 07:20 | W.PN.CD ---
Today's Communication / Plan
-
Hold diuretic
hold OAT
Expect drain removal tomorrow
Impression / Plan
-
SOB - with weight gain and abdominal bloating.
- no improvement with increased outpatient Lasix to 80mg BID for 2 days.
- IV Lasix with close monitoring of renal function.
- pericardial effusion drained last evening by Dr Yusuf. 660 cc bloody fluid removed with symptomatic improvement
- Drain in place- only 15-20 cc further drainage overnight. I think we leave drain in until tomorrow then remove.
- He is comforatble supine. Would hold off on diuretic for now in face of worsening renal function.
Afib - paroxysmal.
- maintaining NSR on Sotalol.
- denies palpitations.
- s/p BRITTANY/DCCV 11/23/23.
- OAC with Eliquis 5mg BID now on hold due to bloody pericardial effusion which grew on OAT
Pericardial effusion - new, moderate on echo 11/20/23.
--Drain in place
PATRICE - creatinine up to 2.5 today- no change vs 11-28.
- at d/c 11/24/23 creatinine was 1.2.
- nephrology is following. Speaking with pt, this may be due to recent change in his anti rejection meds. Expect nephrology has discussed with his transplant team at [facility]
HTN - stable on meds, monitor.
Dyslipidemia - stable on Rosuvastatin, continue.
DMII - per hospitalist.
Renal transplant - in 2020 at [facility], follows there.
- per nephrology.
Physical Exam
Vital Signs/Labs
Vital Signs
Temp Pulse Resp BP Pulse Ox
97.6 F 96 18 101/74 95
11/29/23 04:27 11/29/23 06:45 11/29/23 04:27 11/29/23 04:45 11/29/23 04:27
01/11/29/23 11/30/23
06:59 06:59 06:59
Actual Weight 232 lb 7 oz
11/29/23 04:06
11/29/23 04:06
Magnesium 2.3 mg/dl (1.6-2.3) 11/29/23 04:06
11/27/23
18:00
Ghn-Q-Muhsvckmtrk Pept 325
Physical Exam
Constitutional: No acute distress and Comfortable
Cardiovascular: Rhythm & rate is regular, S1S2 is normal and Murmur/rub/gallop absent
Respiratory: Respiratory effort normal, Lungs clear to auscul., Wheeze Absent and Crackles Absent
GI: Soft and Non tender
Neuro/Psych: AO x 3 and Motor deficits absent
Other: Cath Site (Pericardiocentesis site clean and dry)
Data Reviewed
-
Date of Service: November 29, 2023
--- NOTE | 2023-11-29 08:00 | W.PN.HOSP.TC ---
Today's Communication/Plan
-
see A/P
Assessment / Plan
Assessment / Plan
HPI: 73-year-old male with past medical history of HFpEF, pericardial effusion, atrial fibrillation on Eliquis, hypertension, renal transplant, diabetes, obesity, hyperlipidemia; presented for worsening abdominal distention since his recent
discharge.�
He has gained 12 pounds in the past few weeks compared to his dry weight.�He is also continue have shortness of breath with minimal exertion.� His lower extremity is not so severe.� He denies any chest pain.� He does feel dizzy when he stands up but
denies any episodes of passing out.�He denies any cough or fevers.� He has been making minimal urine despite increased dose of Lasix.
Patient was recently admitted from 11/18 to 11/24 for CHF exacerbation and rapid atrial fibrillation.� He was diuresed, started on heparin and Cardizem.� Cardioversion and BRITTANY was performed unsuccessfully.� He underwent repeat cardioversion which was
successful.� He was maintained on sotalol and Cardizem and Coreg for rate control and transition to Eliquis.�Echocardiogram showed pericardial effusion that appears to be improving.� He was recommended follow-up with transplant team at [facility].
A/P:
# Volume overload, secondary to Large pericardial effusion
# History of pericardial effusion secondary to everolimus versus heart failure
echo noted EF 70-75%, Large pericardial effusion
Lasix on hold due to PATRICE
s/p pericardiocentesis with drain in place 11/28
Cardiology on board to manage drain
# PATRICE, ?cardiorenal syndrome
# Hyperkalemia, resolved
Creatinine 2.1 -> 2.5; from baseline 1.2
Hold potassium supplement
renal US: No acute abnormality of right iliac fossa transplant kidney identified
Lasix on hold
Renal on board
# History of renal transplant
Continue cyclosporine, level pending
Continue prednisone
renal US: No acute abnormality of right iliac fossa transplant kidney identified
Renal on board
# Recently diagnosed paroxysmal atrial fibrillation
s/p BRITTANY/DCCV 11/23/23.
Continue Coreg, Diltiazem, Sotalol with hold parameter
Eliquis 5mg BID on hold due to bloody pericardial effusion
# Essential hypertension
Continue Coreg, Diltiazem, Sotalol with hold parameter
# Type 2 diabetes
resumed home dose Lantus 25 units twice daily
Insulin sliding scale
Carb control diet
# Hyperlipidemia
Continue statin
# Obesity
BMP 36
# Hyponatremia
Full code
DVT prophylaxis�Off Eliquis, use SCD
Anticipated Discharge: > 48 hours
Subjective/Interval History
-
Date of Service: November 29, 2023
Objective Data
-
Labs:
Laboratory Results
11/29/23
04:06
WBC 8.9
Hgb 11.6 L
Hct 34.5 L
Plt Count 321
Sodium 130 L
Potassium 4.7
Chloride 102
Carbon Dioxide 24
BUN 60 H
Creatinine 2.5 H
Glucose 155 H
Calcium 8.3 L
Vital Signs:
Vital Signs
Temp Pulse Resp BP Pulse Ox
36.4 C 100 18 101/74 95
11/29/23 04:27 11/29/23 07:30 11/29/23 04:27 11/29/23 04:45 11/29/23 04:27
I&O
11/28/23 11/29/23 11/30/23
06:59 06:59 06:59
Intake Total 960 / 960
Output Total 380 / 380 1450 / 1450
Balance 580 / 580 -1450 / -1450
Review of Systems
-
History Source: Patient
Respiratory: Denies Trouble Breathing (improved)
Physical Exam
-
General: Well Developed, Well Nourished, No Apparent Distress, Comfortable, Conversant and Obese; Negative Respiratory Distress
HEENT: Normocephalic, Atraumatic, Nose Appears Normal and Ears Appear Normal; Negative Oxygen
Respiratory: Clear to Auscultation and Non Labored Respirations
Cardiac: Regular Rhythm, S1/S2 and Other (pericardial drain )
GI: Soft, Nontender, Nondistended and Normal Bowel Sounds
Skin: Warm and Dry
Neuro: Awake, Alert, Oriented and AO x 3
Psych: Calm and Intact Judgement/Insight
Data Reviewed
-
Labs: Labs Reviewed by me
[2023-11-29 08:40] LABS: Glucose - Point of Care 112 mg/dl (70-99)
[2023-11-29] MEDS: NOVOLOG FLEXPEN-LOW RESISTANCE SC (08:42)
[2023-11-29] MEDS: BETAPACE 80 MG PO ×2 (08:43→20:19)
[2023-11-29] MEDS: MAG-TAB SR 84 MG PO ×2 (08:43→20:19)
[2023-11-29] MEDS: COLCHICINE 0.599999999999999978 MG PO (08:44)
[2023-11-29] MEDS: CARDIZEM CD PO (08:44)
[2023-11-29] MEDS: SandIMMUNE 100 MG PO (08:45)
[2023-11-29] MEDS: DELTASONE 5 MG PO (08:45)
[2023-11-29] MEDS: VITAMIN D3 (cholecalciferol) 50 MCG PO (08:45)
[2023-11-29] MEDS: LANTUS 0.25 UNITS SC ×2 (08:51→22:03)
[2023-11-29] MEDS: LANTUS SC (08:57)
[2023-11-29] MEDS: COREG PO (08:57)
--- NOTE | 2023-11-29 09:23 | CM ---
Reviewed chart. Mr. Waterman was transferred to IVU. Met with Mr. Waterman to review discharge plans. He states prior to admission he reside with is spouse in a two story home with three steps to enter. He states he has a full flight of steps to
get to bedroom/full bathroom. He states he has a powder room on the first floor. He stated prior to admission he was independent with ambulation and adls. He has a rolling walker at home. 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 He states he had
[facility] after his kidney transplant. He states he has a prescription plan and uses [facility]. He has supportive sons and [id number] in the area. Medical work-up in progress. The discharge plan is to return home with his spouse when
medically stable.
[2023-11-29] MEDS: NOVOLOG FLEXPEN-LOW RESISTANCE 1 UNITS SC (12:03)
[2023-11-29 12:04] LABS: Glucose - Point of Care 179 mg/dl (70-99)
--- NOTE | 2023-11-29 13:26 | W.PN.NEPH.PH ---
Today's Communication / Plan
-
see plan
Assessment/Plan
-
Assessment:
PATRICE
Hyperkalemia
hyponatremia
mild gap met acidosis
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
pericardial effusion
Afib s/p CV 11/17
FSGS
Igg Gammopathy
T2DM
Anemia
HTN
BK viremia (off MMF)
Nephrolithiasis
Obesity
VIKASH
recurrent skin squamous cell cancer
Plan:
Recent d/c few days ago for CHF and Afib
now returns with PATRICE and CHF exacerbation-large pericardial effusion s/p tap 660cc on 11/28
cr stable with improving UOP,
highly suspect cardiorenal with pericardial effusion, UA relatively bland and U na low <5
non acute txp renal US
pending cyclosporin level
cont to hold lasix
strict FR 40 ounces/day and low salt diet
IS: recent change from everolimus back to cyclosporine
continue prednisone 5mg daily. off MMF for BK viremia
avoid nephrotoxins
monitor hyponatremia with FR
BP remains soft on low dose coreg
cont- holding losartan. hold mounjaro
Started on Colchicine by cards for with concern of pericarditis , with current renal function will decrease dose -d/w pharmacy
d/w pt and
called Chaychristelle Sánchez and left message to call back
-
-
Date of Service: November 29, 2023
CC / HPI / ROS
-
Chief Complaint:
PATRICE , h/o ktp
History of Present Illness:
cr no change at 2.5, bp low this am but better now
has pericardial drain
UOP 1.5lit and wt decreasing
Review of Systems:
feels better
less sob
no CP
Labs
-
Labs:
WBC 8.9 10^3/uL (4.8-10.8) 11/29/23 04:06
RBC 4.03 10^6/uL (4.70-6.10) L 11/29/23 04:06
Hgb 11.6 g/dL (13.0-18.0) L 11/29/23 04:06
Hct 34.5 % (39.0-52.0) L 11/29/23 04:06
Plt Count 321 10^3/uL (130-400) 11/29/23 04:06
Sodium 130 mmol/L (135-145) L 11/29/23 04:06
Potassium 4.7 mmol/L (3.5-5.1) 11/29/23 04:06
Chloride 102 mmol/L (98-107) 11/29/23 04:06
Carbon Dioxide 24 mmol/L (22-30) 11/29/23 04:06
BUN 60 mg/dl (9-20) H 11/29/23 04:06
Creatinine 2.5 mg/dL (0.7-1.3) H 11/29/23 04:06
eGFR 26.63 11/29/23 04:06
Glucose 155 mg/dl (70-99) H 11/29/23 04:06
Calcium 8.3 mg/dl (8.4-10.2) L 11/29/23 04:06
Zpb-G-Ribozapmtcz Pept 325 pg/ml 11/27/23 18:00
Albumin 3.0 g/dl (3.5-5.0) L 11/28/23 05:14
Physical Exam
-
Vital Signs:
Vital Signs
Temp Pulse Resp BP Pulse Ox
97.5 F 100 20 105/68 94
11/29/23 12:02 11/29/23 10:00 11/29/23 12:02 11/29/23 08:44 11/29/23 12:02
Cardiovascular:: Regular rate and rhythm
Lung Excursion:: Normal (decreased)
Abdomen:: Nontender and Soft
Extremity Edema:: None: Bilateral:
Garcia Catheter: No
[2023-11-29] MEDS: TYLENOL 1000 MG PO (16:29)
--- NOTE | 2023-11-29 17:04 | W.PN.UPDATE ---
Update Note
Progress Note Update
spoke to Ch[facility] nephrology and updated about pt case
[2023-11-29 17:30] LABS: Glucose - Point of Care 232 mg/dl (70-99)
[2023-11-29] MEDS: NOVOLOG FLEXPEN-LOW RESISTANCE 2 UNITS SC (17:30)
--- NOTE | 2023-11-29 18:39 | PTCARENOTE ---
pt continues to be afib on the monitor, HR in the 100s, VSS. pt c/o pain at drain site, Tylenol given as ordered. pt found relief with Tylenol. pt ambulated through the halls with no issues. pt educated on plan of care for the evening and pt
verbalized understanding. call andrew within reach.
[2023-11-29] MEDS: COREG 6.25 MG PO (20:19)
[2023-11-29 21:41] LABS: Glucose - Point of Care 145 mg/dl (70-99)
[2023-11-29] MEDS: CRESTOR 5 MG PO (22:02)
[2023-11-29] MEDS: SandIMMUNE 75 MG PO (22:02)
[2023-11-30] VITALS (7 sets, daily range): BP systolic 96–155; BP diastolic 78–95; BMI 35.5
[2023-11-30 01:59] LABS: Glucose - Point of Care 101 mg/dl (70-99)
[2023-11-30 03:41] LABS: Hematocrit 35.5 % (39.0-52.0); Hemoglobin 12.1 g/dL (13.0-18.0); Mean Corp Hgb Conc. 34.1 g/dL (33.0-37.0); Mean Corpuscular Hgb 29.2 pg (27.0-31.0); Mean Corpuscular Volume 85.7 fL (80.0-94.0); Mean Platelet Volume 10.3 fL (7.4-10.4); Platelet Count 352 10^3/uL (130-400); Red Blood Cell Count 4.14 10^6/uL (4.70-6.10); Red Cell Dist. Width 11.9 % (11.5-14.5); White Blood Cell Count 7.5 10^3/uL (4.8-10.8)
[2023-11-30 04:06] LABS: Blood Urea Nitrogen 48 mg/dl (9-20); Calcium 8.5 mg/dl (8.4-10.2); Carbon Dioxide 27 mmol/L (22-30); Chloride 100 mmol/L (98-107); Estimated Creatinine Clearance 42 ml/min; Glucose 83 mg/dl (70-99); Magnesium 2.3 mg/dl (1.6-2.3); Sodium 135 mmol/L (135-145)
--- NOTE | 2023-11-30 07:35 | W.PN.HOSP.TC ---
Today's Communication/Plan
-
see bold
Assessment / Plan
Assessment / Plan
HPI: 73-year-old male with past medical history of HFpEF, pericardial effusion, atrial fibrillation on Eliquis, hypertension, renal transplant, diabetes, obesity, hyperlipidemia; presented for worsening abdominal distention since his recent
discharge.�
He has gained 12 pounds in the past few weeks compared to his dry weight.�He is also continue have shortness of breath with minimal exertion.� His lower extremity is not so severe.� He denies any chest pain.� He does feel dizzy when he stands up but
denies any episodes of passing out.�He denies any cough or fevers.� He has been making minimal urine despite increased dose of Lasix.
Patient was recently admitted from 11/18 to 11/24 for CHF exacerbation and rapid atrial fibrillation.� He was diuresed, started on heparin and Cardizem.� Cardioversion and BRITTANY was performed unsuccessfully.� He underwent repeat cardioversion which was
successful.� He was maintained on sotalol and Cardizem and Coreg for rate control and transition to Eliquis.�Echocardiogram showed pericardial effusion that appears to be improving.� He was recommended follow-up with transplant team at [facility].
Gen: NAD, AAOx3.
Eyes: EOMI, PERRLA, no scleral icterus.
Neck: supple.
CV: tachy, irreg/irreg, +S1/S2, no m/r/g.
Resp: CTAB, no rales, wheezes, or rhonchi.
Abd: +BS, soft, NT, ND
Skin: No rashes. trace LE edema
Neuro: CN 2-12 intact, non-focal.
Psych: Normal mood and affect.
Echo: Left ventricle is small in size. LV ejection fraction is 70-75%, by visual�assessment. Small� right ventricular size. Normal right ventricular systolic function. Large pericardial circumferential effusion measuring up to 2.5-3.0 cm at its
largest dimension with evidence of tamponade physiology RV diastolic collapse,�tricuspid flow variation (40%), and mitral flow variation (30%).
Renal US: No acute abnormality of right iliac fossa transplant kidney identified
Volume overload due to Large pericardial effusion:
-h/o pericardial effusion secondary to everolimus versus heart failure
-Echo above with large pericardial effusion
-s/p pericardiocentesis with drain in place 11/28/23
-cardiology following
-lasix on hold
-check echo, possible drain removal today
PATRICE:
-likely due to cardiorenal syndrome
-Hyperkalemia, resolved
-h/o renal transplant, cont cyclosporine/prednisone
-Cr improving, now 1.8 (baseline 1.2)
-renal following
Paroxysmal atrial fibrillation:
-s/p BRITTANY/DCCV 11/23/23
-continue Coreg/Diltiazem/Sotalol
-Eliquis on hold due to bloody pericardial effusion
Other problems:
Essential hypertension: Continue Coreg/Diltiazem/Sotalol
DM2: cont Lantus/SSI/accuchecks
Hyperlipidemia: Continue statin
Obesity due to excess calories
Hyponatremia, resolved
Pt's updated over the phone.
FULL/SCDs
Anticipated Discharge: 24 - 48 hours
Subjective/Interval History
-
Date of Service: November 30, 2023
Denies CP/SOB. Reports minimal pericardial drain output.
Objective Data
-
Labs:
Laboratory Results
11/30/23
03:20
WBC 7.5
Hgb 12.1 L
Hct 35.5 L
Plt Count 352
Sodium 135
Potassium 4.0
Chloride 100
Carbon Dioxide 27
BUN 48 H
Creatinine 1.8 H
Glucose 83
Calcium 8.5
Vital Signs:
Vital Signs
Temp Pulse Resp BP Pulse Ox
97.8 F 114 20 149/83 94
11/29/23 22:10 11/29/23 22:02 11/29/23 22:10 11/29/23 22:02 11/29/23 22:10
I&O
11/29/23 11/30/23 12/01/23
06:59 06:59 06:59
Intake Total 480 / 480
Output Total 1450 / 1450 1175 / 1175
Balance -1450 / -1450 -695 / -695
--- NOTE | 2023-11-30 07:42 | W.PN.CD ---
Today's Communication / Plan
-
Repeat limited TTE.
If no residual effusion, would pull drain.
Continue autodiuresis.
Transplant management per nephrology.
DC sotalol and carvedilol.
Start metoprolol succinate 50 mg daily.
Uptitrate metoprolol for rate control.
Hold anticoagulation and discuss with EP.
Impression / Plan
-
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
#HFpEF/pericardial effusion
-Acute.
-Effusion is exudative (bloody). No evidence of infection (Cx negative or NGTD). Cytology pending.
-Improving after pericardiocentesis (weight is down, diuresing without diuretics).
-Renal function improving.
-GDMT not necessarily absolutely indicated as symptoms were likely due to the effusion.
-Minimal drainage in the past 24 hours.
-Repeat TTE this morning. If there is no residual effusion, pull drain.
-No role for colchicine at this time (high risk for transplanted kidney, no compelling evidence of pericarditis).
#Paroxysmal Afib
-AF with RVR (110-120).
-D/C sotalol and change carvedilol to metoprolol succinate 50 mg PO daily.
-s/p BRITTANY/DCCV 11/23/23.
-CHADS2-Vasc = 3 (HTN, Age x1, DM2).
-OAC with apixaban 5mg BID now on hold due to bloody pericardial effusion which grew on OAT. Would hold for 4 weeks and restart after repeat echo. The patient is within 30 days of a DCCV and back in PAF but the hemorrhagic effusion takes
precedence. I will discuss with EP.
#PATRICE/Renal Transplant
-Creatinine peaked at 2.5, now down to 1.8.
-I suspect PATRICE due to venous congestion but DDx would include rejection.
-Management per nephrology.
#HTN
-Chronic, stable on meds.
#Dyslipidemia
-Chronic, stable on Rosuvastatin..
#DMII - per hospitalist.
Subjective/Interval History:
Back in atrial fibrillation with HR of 110-120.
Minimal drainage overnight.
Feels well.
Physical Exam
Vital Signs/Labs
Vital Signs
Temp Pulse Resp BP Pulse Ox
36.6 C 114 20 149/83 94
11/29/23 22:10 11/29/23 22:02 11/29/23 22:10 11/29/23 22:02 11/29/23 22:10
11/28/23 11/29/23 11/30/23
11:59 11:59 11:59
Actual Weight 105.432 kg 103.6 kg 102.7 kg
11/30/23 03:20
11/30/23 03:20
Magnesium 2.3 mg/dl (1.6-2.3) 11/30/23 03:20
11/27/23
18:00
Xur-L-Omkkkceghaq Pept 325
Physical Exam
Constitutional: No acute distress and Comfortable
EENT: Anicteric and Moist mucous membranes
Cardiovascular: Rhythm & rate is regular, Pedal edema is absent, JVD pressure is normal, S1S2 is normal and Murmur/rub/gallop absent
Respiratory: Respiratory effort normal, Lungs clear to auscul., Wheeze Absent, Crackles Absent and Rhonchi Absent
GI: Soft, Distention absent, Flat, Non tender and Normal bowel sounds
Neuro/Psych: AO x 3
Other: Cardiac Device Site (Pericardial drain site is C/D/I.)
Data Reviewed
-
Date of Service: November 30, 2023
Medical Decision Making: Reviewed Test Results, Independent Historian Assessment, Test Interpretation and Review of Case with other Provider
EKG: Tracing Personally Visualized and interpreted and Report Reviewed by me
Echo: Tracing Personally Visualized and interpreted and Report Reviewed by me
X-Ray/CT/US/MRI/NUC/PET: Image Personally Visualized and interpreted and Report Reviewed by me
Medical Tests (PFT, Pathology etc): Image Personally Visualized and interpreted and Report Reviewed by me
Labs: Labs Reviewed by me
Old Records: Reviewed
[2023-11-30] MEDS: CARDIZEM CD PO (08:10)
[2023-11-30] MEDS: MAG-TAB SR 84 MG PO ×2 (08:10→20:34)
[2023-11-30] MEDS: BETAPACE PO (08:11)
[2023-11-30] MEDS: NOVOLOG FLEXPEN-LOW RESISTANCE SC ×2 (08:11→19:29)
[2023-11-30] MEDS: VITAMIN D3 (cholecalciferol) 50 MCG PO (08:11)
[2023-11-30 08:12] LABS: Glucose - Point of Care 103 mg/dl (70-99)
[2023-11-30] MEDS: DELTASONE 5 MG PO (08:12)
[2023-11-30] MEDS: COREG PO (08:12)
[2023-11-30] MEDS: SandIMMUNE 100 MG PO (08:13)
[2023-11-30] MEDS: LANTUS 0.25 UNITS SC ×2 (08:18→22:16)
[2023-11-30] MEDS: TOPROL XL 50 MG PO (10:46)
[2023-11-30 12:06] LABS: Glucose - Point of Care 154 mg/dl (70-99)
[2023-11-30] MEDS: NOVOLOG FLEXPEN-LOW RESISTANCE 1 UNITS SC (13:18)
--- NOTE | 2023-11-30 13:54 | CM ---
Reviewed chart. Met with and Mrs. Waterman to review discharge plans. He states he is feeling okay. We reviewed [facility] with him and he is agrgeeable to [facility]. Telephone call to [facility] Intake to make the referral.
Sent the referral to [facility]. Prior to admission he resides with his spouse in a two story home with three steps to enter. He has a full flight of steps to get to bedroom/full bathroom. He has a powder room on the first floor. Prior to
admission he was independent with ambulation and adls. He does have a rolling walker at home. He has a prescription plan and uses [facility]. Medical work-up in progress. The discharge plan is to return home with his spouse and [facility] when medically stable.
--- NOTE | 2023-11-30 14:09 | W.HF.CON ---
Heart Failure
- LV Function
Left ventricular function study result: LV Ejection fraction >40%
Ejection Fraction Percentage: 70-75
- ARNI
Patient already on ARNI: No
Heart Failure ARNI Not Indicated: LV Ejection Fraction >/= 40%
- ACEI/ARB
Patient already on ACEI/ARB: No
Heart Failure ACEI/ARB Not Indicated: LV Ejection Fraction > 40%
- Beta James
Patient already on Evidence Based Beta James: Yes
- Mineralocorticord Receptor Antagonist
Patient already on MRA: No
Heart Failure MRA Not Indicated: LV Ejection Fraction > 40%
- SGLT-2 Inhibitor
Patient already on SGLT-2 Inhibitor: No
Heart Failure SGLT-2 Inhibitor Not Indicated: LV Ejection Fraction >40%
- Afib Anticoagulation
Patient already on Anticoagulation for Afib: No
Heart Failure Afib Anticoagulation Contraindication: Hemorrhagic Tendencies (bloody pericardial effusion)
- NYHA CHF Classification
NYHA CHF Classification Level: Class III - Symptoms w/ min exertion, interferes w/ nml daily activity
- ACC/AHA Stage
ACC/AHA Stage: Stage C: Symptomatic Heart Failure
--- NOTE | 2023-11-30 14:10 | W.PN.NEPH.PH ---
Today's Communication / Plan
-
follow BMP
Assessment/Plan
-
Assessment:
PATRICE
Hyperkalemia
hyponatremia
mild gap met acidosis
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
pericardial effusion
Afib s/p CV 11/17
FSGS
Igg Gammopathy
T2DM
Anemia
HTN
BK viremia (off MMF)
Nephrolithiasis
Obesity
VIKASH
recurrent skin squamous cell cancer
Plan:
-follow BMP
-pericardial drain per caridology
-continue IS regmine for RTx
-CsA level should be at 7a, one hour before next dose
-
-
Date of Service: November 30, 2023
CC / HPI / ROS
-
Chief Complaint:
PATRICE , h/o RTx
History of Present Illness:
PATRICE/Cr down to 1.8
[address] in [address]
BP stable
Review of Systems:
feels better
less sob
no CP
Labs
-
Labs:
WBC 7.5 10^3/uL (4.8-10.8) 11/30/23 03:20
RBC 4.14 10^6/uL (4.70-6.10) L 11/30/23 03:20
Hgb 12.1 g/dL (13.0-18.0) L 11/30/23 03:20
Hct 35.5 % (39.0-52.0) L 11/30/23 03:20
Plt Count 352 10^3/uL (130-400) 11/30/23 03:20
Sodium 135 mmol/L (135-145) 02/02/24 03:20
Potassium 4.0 mmol/L (3.5-5.1) 11/30/23 03:20
Chloride 100 mmol/L (98-107) 11/30/23 03:20
Carbon Dioxide 27 mmol/L (22-30) 11/30/23 03:20
BUN 48 mg/dl (9-20) H 11/30/23 03:20
Creatinine 1.8 mg/dL (0.7-1.3) H 11/30/23 03:20
eGFR 39.50 11/30/23 03:20
Glucose 83 mg/dl (70-99) 11/30/23 03:20
Calcium 8.5 mg/dl (8.4-10.2) 11/30/23 03:20
Oqx-P-Buquthkbkmw Pept 325 pg/ml 11/27/23 18:00
Albumin 3.0 g/dl (3.5-5.0) L 11/28/23 05:14
Physical Exam
-
Vital Signs:
Vital Signs
Temp Pulse Resp BP Pulse Ox
97.6 F 117 20 139/83 97
11/30/23 12:13 11/30/23 10:46 11/30/23 12:13 11/30/23 10:46 11/30/23 12:13
Cardiovascular:: Regular rate and rhythm
Respiratory:: Bilateral: Coarse
Lung Excursion:: Normal
Abdomen:: Nontender and Soft
Bowel Sounds:: Normal
Extremity Edema:: None: Bilateral:
[2023-11-30 17:46] LABS: Glucose - Point of Care 143 mg/dl (70-99)
--- NOTE | 2023-11-30 18:47 | PTCARENOTE ---
No drainage from pericardial drain. Dr Yusuf at bedside manipulating drain. re dressed. Will re assess drainage.
--- NOTE | 2023-11-30 21:00 | PTCARENOTE ---
Patient received resting in bed watching television. Patient A+A+Ox3. No neurological deficits noted. No c/o pain or discomfort. No c/o headache,dizziness or lightheadedness. Room air. SaO2 94%. No c/o SOB. No respiratory distress.
Pericardial drain intact - No new drainage noted - Dressing intact. Atrial Fibrillation. Heart rate 120-130's. Patient with no c/o chest pain, pressure or discomfort. Patient with left lower arm AV Fistula - Positive Bruit, Positive Thrill.
Normoactive bowel sounds. No BM. No c/o nausea. No vomiting. Voiding without difficulty. Assessment as documented.
[2023-11-30 21:59] LABS: Glucose - Point of Care 118 mg/dl (70-99)
[2023-11-30] MEDS: CRESTOR 5 MG PO (22:15)
[2023-11-30] MEDS: SandIMMUNE 75 MG PO (22:16)
--- NOTE | 2023-12-01 01:00 | PTCARENOTE ---
Patient sleeping without difficulty. No changes from previous assessment.
[2023-12-01 06:00] VITALS: BMI 35.3
[2023-12-01 07:01] LABS: Glucose - Point of Care 84 mg/dl (70-99)
[2023-12-01 07:08] LABS: Hemoglobin 12.3 g/dL (13.0-18.0); Mean Corp Hgb Conc. 33.2 g/dL (33.0-37.0); Mean Corpuscular Hgb 28.8 pg (27.0-31.0); Mean Corpuscular Volume 86.7 fL (80.0-94.0); Mean Platelet Volume 9.8 fL (7.4-10.4); Platelet Count 381 10^3/uL (130-400); Red Blood Cell Count 4.27 10^6/uL (4.70-6.10); Red Cell Dist. Width 12.2 % (11.5-14.5); White Blood Cell Count 7.8 10^3/uL (4.8-10.8)
[2023-12-01 07:32] LABS: Blood Urea Nitrogen 27 mg/dl (9-20); Calcium 8.4 mg/dl (8.4-10.2); Carbon Dioxide 28 mmol/L (22-30); Chloride 104 mmol/L (98-107); Estimated Creatinine Clearance 59 ml/min; Glucose 83 mg/dl (70-99); Magnesium 2.1 mg/dl (1.6-2.3); Potassium 3.6 mmol/L (3.5-5.1); Sodium 135 mmol/L (135-145); eGFR 58.37
[2023-12-01 07:56] VITALS: BP 134/95
[2023-12-01] MEDS: NOVOLOG FLEXPEN-LOW RESISTANCE SC ×2 (08:27→17:34)
[2023-12-01] MEDS: DELTASONE 5 MG PO (08:56)
[2023-12-01] MEDS: CARDIZEM CD 240 MG PO (08:56)
[2023-12-01] MEDS: TOPROL XL 50 MG PO (08:57)
[2023-12-01] MEDS: MAG-TAB SR 84 MG PO ×2 (08:57→21:24)
[2023-12-01] MEDS: VITAMIN D3 (cholecalciferol) 50 MCG PO (08:57)
[2023-12-01] MEDS: SandIMMUNE 100 MG PO (08:57)
[2023-12-01] MEDS: LANTUS 0.25 UNITS SC ×2 (08:58→21:24)
[2023-12-01] MEDS: FLUSH (NSS) 1 FLUSH IV (08:58)
--- NOTE | 2023-12-01 09:46 | W.PN.HOSP.TC ---
Today's Communication/Plan
-
Added Colace for constipation
Assessment / Plan
Assessment / Plan
HPI: 73-year-old male with past medical history of HFpEF, pericardial effusion, atrial fibrillation on Eliquis, hypertension, renal transplant, diabetes, obesity, hyperlipidemia; presented for worsening abdominal distention since his recent
discharge.� He had gained 12 pounds in the past few weeks compared to his dry weight.�He had shortness of breath with minimal exertion.� His lower extremity is not so severe.� He denies any chest pain.� He does feel dizzy when he stands up but
denies any episodes of passing out.�He denies any cough or fevers.� He has been making minimal urine despite increased dose of Lasix.
Patient was recently admitted from 11/18 to 11/24 for CHF exacerbation and rapid atrial fibrillation.� He was diuresed, started on heparin and Cardizem.� Cardioversion and BRITTANY was performed unsuccessfully.� He underwent repeat cardioversion which was
successful.� He was maintained on sotalol and Cardizem and Coreg for rate control and transition to Eliquis.�Echocardiogram showed pericardial effusion that appears to be improving.� He was recommended follow-up with transplant team at [facility].
Initial Exam:
Gen: NAD, AAOx3.
Eyes: EOMI, PERRLA, no scleral icterus.
Neck: supple.
CV: tachy, irreg/irreg, +S1/S2, no m/r/g.
Resp: CTAB, no rales, wheezes, or rhonchi.
Abd: +BS, soft, NT, ND
Skin: No rashes. trace LE edema
Neuro: CN 2-12 intact, non-focal.
Psych: Normal mood and affect.
Imaging data:
Echo: Left ventricle is small in size. LV ejection fraction is 70-75%, by visual�assessment. Small� right ventricular size. Normal right ventricular systolic function. Large pericardial circumferential effusion measuring up to 2.5-3.0 cm at its
largest dimension with evidence of tamponade physiology RV diastolic collapse,�tricuspid flow variation (40%), and mitral flow variation (30%).
Renal US: No acute abnormality of right iliac fossa transplant kidney identified
1. Volume overload due to Large pericardial effusion:
-h/o pericardial effusion secondary to everolimus versus heart failure
-Echo above with large pericardial effusion
-s/p pericardiocentesis with drain in place 11/28/23
-cardiology following
-lasix on hold
-repeat echo: EF 60-65%, +pericardial effusion, no tamponade,
Procedure pending today
2. PATRICE: -likely due to cardiorenal syndrome. Improving. BUN today 27/1.3
-Hyperkalemia, resolved
-h/o renal transplant, cont cyclosporine/prednisone
-Cr improving, now 1.3, was 1.8 (baseline 1.2)
-renal following, checking BMP daily
3. Paroxysmal atrial fibrillation:
-s/p BRITTANY/DCCV 11/23/23
-continue Coreg/Diltiazem/Sotalol
-Eliquis on hold due to bloody pericardial effusion
4. Other problems:
Essential hypertension: Continue Coreg/Diltiazem/Sotalol
DM2: cont Lantus/SSI/accuchecks
Hyperlipidemia: Continue statin
Obesity due to excess calories: outpatient weight loss
Hyponatremia, resolved
Constipation: will order colace
Pt's in the room, aware of events.
Full code
FULL/SCDs
Anticipated Discharge: 24 - 48 hours
Subjective/Interval History
-
Date of Service: December 01, 2023
Feels better today than when he was admitted.
Objective Data
-
Labs:
Laboratory Results
12/01/23
06:58
WBC 7.8
Hgb 12.3 L
Hct 37.0 L
Plt Count 381
Sodium 135
Potassium 3.6
Chloride 104
Carbon Dioxide 28
BUN 27 H
Creatinine 1.3
Glucose 83
Calcium 8.4
Vital Signs:
Vital Signs
Temp Pulse Resp BP Pulse Ox
98.1 F 138 16 134/95 96
12/01/23 07:56 12/01/23 08:56 12/01/23 07:56 12/01/23 08:56 12/01/23 07:56
I&O
11/30/23 12/01/23 12/02/23
06:59 06:59 06:59
Intake Total 480 / 480 730 / 730
Output Total 1175 / 1175 1825 / 1825
Balance -695 / -695 -1095 / -1095
Review of Systems
-
History Source: Patient
All other systems: Reviewed and negative
Physical Exam
-
General: Well Developed, Well Nourished, Comfortable and Obese
HEENT: Normocephalic, Atraumatic, Moist Mucous Membranes, Nose Appears Normal and Ears Appear Normal
Respiratory: Clear to Auscultation and Decreased Breath Sounds
Cardiac: Regular Rhythm and S1/S2
GI: Soft, Nontender and Nondistended
Musculoskeletal: No Clubbing, No Cyanosis, Edema, Left Upper Extrem and Edema, Right Lower Extrem
Skin: Warm and Dry; Negative Rash or Ulcers
Neuro: Awake, Alert, Oriented and AO x 3
Psych: Calm
Data Reviewed
-
Labs: Labs Reviewed by me
--- NOTE | 2023-12-01 10:10 | W.PN.CD ---
Today's Communication / Plan
-
-Repeat transthoracic echocardiogram yesterday shows some degree of reaccumulation of the pericardial effusion; however, the pigtail catheter is no longer draining and is likely clogged.
-Case discussed with Interventional Cardiology who will insert a new pigtail catheter this morning; will obtain a repeat echocardiogram afterwards.
-Patient is developing worsening A-fib with RVR to 140s.
-Will reassess heart rate after insertion of new pigtail catheter; if remains tachycardic, will likely add amiodarone.
Impression / Plan
-
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
#HFpEF/pericardial effusion
-Acute.
-Effusion is exudative - 660 cc removed (bloody). No evidence of infection (Cx negative or NGTD). Cytology pending.
-Improving after pericardiocentesis (weight is down, diuresing without diuretics).
-Renal function improved.
-GDMT not necessarily absolutely indicated as symptoms were likely due to the effusion.
-Repeat transthoracic echocardiogram yesterday shows some degree of reaccumulation of the pericardial effusion; however, the pigtail catheter is no longer draining and is likely clogged.
-Case discussed with Interventional Cardiology who will insert a new pigtail catheter this morning; will obtain a repeat echocardiogram afterwards.
-No role for colchicine at this time (high risk for transplanted kidney, no compelling evidence of pericarditis).
#Paroxysmal Afib
-Patient is developing worsening A-fib with RVR to 140s.
-Will reassess heart rate after insertion of new pigtail catheter; if remains tachycardic, will likely add amiodarone.
-Continue metoprolol succinate 50 mg PO daily for now.
-s/p BRITTANY/DCCV 11/23/23.
-CHADS2-Vasc = 3 (HTN, Age x1, DM2).
-OAC with apixaban 5mg BID now on hold due to bloody pericardial effusion which grew on OAT. Would hold for 4 weeks and consider restart after repeat echo. The patient is within 30 days of a DCCV and back in PAF but the hemorrhagic effusion takes
precedence.
#PATRICE/Renal Transplant
-Creatinine peaked at 2.5, now down to 1.3.
-I suspect PATRICE due to venous congestion and lack of forward flow (cardiac output) in the setting of tamponade but DDx would include rejection.
-Management per Nephrology.
#HTN
-Chronic, stable on meds.
#Dyslipidemia
-Chronic, stable on Rosuvastatin..
#DMII - per hospitalist.
Subjective/Interval History:
Patient in atrial fibrillation with RVR. No major cardiac complaints.
Physical Exam
Vital Signs/Labs
Vital Signs
Temp Pulse Resp BP Pulse Ox
98.1 F 138 16 134/95 96
12/01/23 07:56 12/01/23 08:56 12/01/23 07:56 12/01/23 08:56 12/01/23 07:56
11/30/23 12/01/23 12/02/23
06:59 06:59 06:59
Actual Weight 102.7 kg 102.2 kg
12/01/23 06:58
12/01/23 06:58
Magnesium 2.1 mg/dl (1.6-2.3) 12/01/23 06:58
11/27/23
18:00
Zpg-H-Oufrwjmvmar Pept 325
Physical Exam
Constitutional: No acute distress and Comfortable
EENT: Anicteric
Cardiovascular: Pedal edema is absent, Systolic murmur absent, Rhythm/rate is irregular and S1S2 is normal
Respiratory: Respiratory effort normal and Lungs clear to auscul.
GI: Soft
Neuro/Psych: AO x 3
Other: Skin (Warm, dry, intact)
Data Reviewed
-
Date of Service: December 01, 2023
EKG: Tracing Personally Visualized and interpreted (Telemetry: A-fib with RVR)
--- NOTE | 2023-12-01 11:17 | PTCARENOTE ---
Received patient this morning resting in bed. Pericardial drain without any further drainage since last marking. Dr. Mckeon in to see the patient and supplies placed at the bedside to replace drain later today. Patient denies any pain or shortness of
breath. at the bedside.
[2023-12-01 11:46] VITALS: BP 135/83
--- NOTE | 2023-12-01 12:07 | W.PN.NEPH.PH ---
Today's Communication / Plan
-
follow BMP
Assessment/Plan
-
Assessment:
PATRICE
Hyperkalemia
hyponatremia
mild gap met acidosis
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
pericardial effusion
Afib s/p CV 11/17
FSGS
Igg Gammopathy
T2DM
Anemia
HTN
BK viremia (off MMF)
Nephrolithiasis
Obesity
VIKASH
recurrent skin squamous cell cancer
Plan:
-follow BMP
-replace pericardial drain per caridology
-continue IS regmine for RTx
-CsA level should be at 7a, one hour before next dose, await results
-
-
Date of Service: December 01, 2023
CC / HPI / ROS
-
Chief Complaint:
PATRICE , h/o RTx
History of Present Illness:
PATRICE/Cr down to 1.3
pericardial drain out, but reaccumulation of pericardial fluid
BP stable
Review of Systems:
feels better
less sob
no CP
Labs
-
Labs:
WBC 7.8 10^3/uL (4.8-10.8) 12/01/23 06:58
RBC 4.27 10^6/uL (4.70-6.10) L 12/01/23 06:58
Hgb 12.3 g/dL (13.0-18.0) L 12/01/23 06:58
Hct 37.0 % (39.0-52.0) L 12/01/23 06:58
Plt Count 381 10^3/uL (130-400) 12/01/23 06:58
Sodium 135 mmol/L (135-145) 12/01/23 06:58
Potassium 3.6 mmol/L (3.5-5.1) 12/01/23 06:58
Chloride 104 mmol/L (98-107) 12/01/23 06:58
Carbon Dioxide 28 mmol/L (22-30) 12/01/23 06:58
BUN 27 mg/dl (9-20) H 12/01/23 06:58
Creatinine 1.3 mg/dL (0.7-1.3) 12/01/23 06:58
eGFR 58.37 12/01/23 06:58
Glucose 83 mg/dl (70-99) 12/01/23 06:58
Calcium 8.4 mg/dl (8.4-10.2) 12/01/23 06:58
Umg-A-Vxnlzylmjrj Pept 325 pg/ml 11/27/23 18:00
Albumin 3.0 g/dl (3.5-5.0) L 11/28/23 05:14
Physical Exam
-
Vital Signs:
Vital Signs
Temp Pulse Resp BP Pulse Ox
98.1 F 106 16 134/95 94
12/01/23 11:43 12/01/23 11:43 12/01/23 11:43 12/01/23 08:56 12/01/23 11:43
Cardiovascular:: Regular rate and rhythm
Respiratory:: Bilateral: Coarse
Lung Excursion:: Normal
Abdomen:: Nontender and Soft
Bowel Sounds:: Normal
Extremity Edema:: None: Bilateral:
[2023-12-01 13:04] LABS: Glucose - Point of Care 162 mg/dl (70-99)
--- NOTE | 2023-12-01 13:23 | PTCARENOTE ---
Patient seen by Dr. Mckeon and attempted to change pericardial drain. Football shaped pericardial drainage collection device removed and drainage bag replaced. No further drainage noted in collection bag. Dressing dry and intact, echo done at the
bedside, no further orders at this time.
[2023-12-01] MEDS: NOVOLOG FLEXPEN-LOW RESISTANCE 1 UNITS SC (13:49)
[2023-12-01 15:33] VITALS: BP 107/89
[2023-12-01] MEDS: COLACE 100 MG PO (17:30)
[2023-12-01 17:35] LABS: Glucose - Point of Care 143 mg/dl (70-99)
[2023-12-01 19:52] VITALS: BP 126/66
[2023-12-01 21:24] LABS: Glucose - Point of Care 174 mg/dl (70-99)
[2023-12-01] MEDS: CRESTOR 5 MG PO (21:24)
[2023-12-01] MEDS: SandIMMUNE 75 MG PO (21:24)
[2023-12-01 22:29] VITALS: BP 134/84
[2023-12-01] MEDS: MELATONIN 5 MG PO (23:23)
[2023-12-02] VITALS (12 sets, daily range): BP systolic 117–150; BP diastolic 69–100; BMI 35.2
--- NOTE | 2023-12-02 01:37 | PTCARENOTE ---
pericardial drain remains in place- pt without pain complaints. voiding in the urinal. AFIB- HR ranging 110s-140s. POC discussed- pt verbalized understanding.
[2023-12-02 04:50] LABS: Hematocrit 34.5 % (39.0-52.0); Hemoglobin 11.7 g/dL (13.0-18.0); Mean Corp Hgb Conc. 33.9 g/dL (33.0-37.0); Mean Corpuscular Hgb 28.7 pg (27.0-31.0); Mean Corpuscular Volume 84.8 fL (80.0-94.0); Mean Platelet Volume 9.8 fL (7.4-10.4); Platelet Count 339 10^3/uL (130-400); Red Blood Cell Count 4.07 10^6/uL (4.70-6.10); Red Cell Dist. Width 12.3 % (11.5-14.5); White Blood Cell Count 8.1 10^3/uL (4.8-10.8)
[2023-12-02 05:10] LABS: Blood Urea Nitrogen 18 mg/dl (9-20); Calcium 8.7 mg/dl (8.4-10.2); Carbon Dioxide 27 mmol/L (22-30); Chloride 106 mmol/L (98-107); Estimated Creatinine Clearance 76 ml/min; Glucose 101 mg/dl (70-99); Potassium 3.4 mmol/L (3.5-5.1); Sodium 135 mmol/L (135-145); eGFR > 60.00
[2023-12-02 07:27] LABS: Glucose - Point of Care 79 mg/dl (70-99)
[2023-12-02] MEDS: NOVOLOG FLEXPEN-LOW RESISTANCE SC (07:52)
--- NOTE | 2023-12-02 07:55 | W.PN.HOSP.TC ---
Today's Communication/Plan
-
see bold
Assessment / Plan
Assessment / Plan
73-year-old male with past medical history of HFpEF, pericardial effusion, atrial fibrillation on Eliquis, hypertension, renal transplant, diabetes, obesity, hyperlipidemia; presented for worsening abdominal distention since his recent discharge.�
He had gained 12 pounds in the past few weeks compared to his dry weight.�He had shortness of breath with minimal exertion.� His lower extremity is not so severe.� He denies any chest pain.� He does feel dizzy when he stands up but denies any
episodes of passing out.�He denies any cough or fevers.� He has been making minimal urine despite increased dose of Lasix.
Patient was recently admitted from 11/18 to 11/24 for CHF exacerbation and rapid atrial fibrillation.� He was diuresed, started on heparin and Cardizem.� Cardioversion and BRITTANY was performed unsuccessfully.� He underwent repeat cardioversion which was
successful.� He was maintained on sotalol and Cardizem and Coreg for rate control and transition to Eliquis.�Echocardiogram showed pericardial effusion that appears to be improving.� He was recommended follow-up with transplant team at [facility].
Gen: NAD, AAOx3.
Eyes: EOMI, PERRLA, no scleral icterus.
Neck: supple.
CV: tachy, irreg/irreg, +S1/S2, no m/r/g. Scant bloody drainage in pericardial drain bag.
Resp: CTAB, no rales, wheezes, or rhonchi.
Abd: +BS, soft, NT, ND
Skin: No rashes.
Neuro: CN 2-12 intact, non-focal.
Psych: Normal mood and affect.
Echo: Left ventricle is small in size. LV ejection fraction is 70-75%, by visual�assessment. Small� right ventricular size. Normal right ventricular systolic function. Large pericardial circumferential effusion measuring up to 2.5-3.0 cm at its
largest dimension with evidence of tamponade physiology RV diastolic collapse,�tricuspid flow variation (40%), and mitral flow variation (30%).
Renal US: No acute abnormality of right iliac fossa transplant kidney identified
Echo 11/30/23: Normal LV size and function with no regional wall motion abnormality.
�Estimated ejection fraction 60 to 65%.
�Small right ventricular size. Normal right ventricular systolic function.
�Circumferential pericardial effusion WITHOUT obvious tamponade.� It measures
�greatest anteriorly at
1.6 cm and posteriorly
2 cm.
�Layered echodense material located within pericardial space, likely coagulum
�given history.
�Compared to TTE from November 28, 2023, pericardial effusion has reaccumulated.
Volume overload due to Large pericardial effusion:
-h/o pericardial effusion secondary to everolimus versus heart failure
-initial echo above with large pericardial effusion.
-s/p pericardiocentesis with drain in place 11/28/23
-Repeat echocardiogram was notable for some degree of reaccumulation of the pericardial effusion. This was likely due to a clogged pigtail catheter. New pigtail catheter was inserted on 12/01/23.
-cardiology following. Case discussed with Dr. Caceres. Pt will have echo in AM and likely removed of pericardial drain tomorrow.
-lasix on hold
PATRICE:
-likely due to cardiorenal syndrome (decreased CO for pericardial effusion, lack of forward flow), now resolved (Cr 1.0 from 1.8, baseline 1.2)
-Hyperkalemia, resolved
-h/o renal transplant, cont cyclosporine/prednisone
-follow cyclosporine level
Paroxysmal atrial fibrillation with RVR:
-s/p BRITTANY/CV 11/23/23
-continue Toprol-XL/Diltiazem
-Eliquis on hold due to bloody pericardial effusion (for 30 days)
Other problems:
Essential hypertension: Continue metoprolol/Diltiazem
DM2: cont Lantus/SSI/accuchecks
Hyperlipidemia: Continue statin
Obesity due to excess calories: outpatient weight loss
Hyponatremia, resolved
Constipation: colace PRN
FULL/SCDs
Anticipated Discharge: > 48 hours
Subjective/Interval History
-
Date of Service: December 02, 2023
OKEEFE but none at rest. No CP.
Objective Data
-
Labs:
Laboratory Results
12/02/23
04:08
WBC 8.1
Hgb 11.7 L
Hct 34.5 L
Plt Count 339
Sodium 135
Potassium 3.4 L
Chloride 106
Carbon Dioxide 27
BUN 18
Creatinine 1.0
Glucose 101 H
Calcium 8.7
Vital Signs:
Vital Signs
Temp Pulse Resp BP Pulse Ox
97.8 F 134 20 134/84 94
12/02/23 07:20 12/01/23 22:29 12/02/23 07:20 12/01/23 22:29 12/02/23 07:20
I&O
12/01/23 12/02/23 12/03/23
06:59 06:59 06:59
Intake Total 730 / 730 360 / 360
Output Total 1825 / 1825 1575 / 1575
Balance -1095 / -1095 -1215 / -1215
[2023-12-02] MEDS: MAG-TAB SR 84 MG PO ×2 (09:01→20:15)
[2023-12-02] MEDS: DELTASONE 5 MG PO (09:01)
[2023-12-02] MEDS: CARDIZEM CD 240 MG PO (09:01)
[2023-12-02] MEDS: FLUSH (NSS) 1 FLUSH IV (09:02)
[2023-12-02] MEDS: LANTUS 0.25 UNITS SC ×2 (09:02→22:03)
[2023-12-02] MEDS: SandIMMUNE 100 MG PO (09:02)
[2023-12-02] MEDS: TOPROL XL 50 MG PO ×2 (09:02→15:26)
[2023-12-02] MEDS: VITAMIN D3 (cholecalciferol) 50 MCG PO (09:02)
--- NOTE | 2023-12-02 10:02 | PTCARENOTE ---
Received patient this morning resting in bed. Scant amount of serosanguineous drainage in pericardial drainage bag with serous drainage in tubing and some leaking at stop cock site. Patient stated he was laughing last night at a TV show and drain
started to put out some drainage when it had been empty. Remains in AF, rate 140's regardless of activity, patient is asymptomatic.
--- NOTE | 2023-12-02 11:28 | W.PN.NEPH.PH ---
Today's Communication / Plan
-
K
Assessment/Plan
-
Assessment:
PATRICE
Hyperkalemia
hyponatremia
mild gap met acidosis
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
pericardial effusion
Afib s/p CV 11/17
FSGS
Igg Gammopathy
T2DM
Anemia
HTN
BK viremia (off MMF)
Nephrolithiasis
Obesity
VIKASH
recurrent skin squamous cell cancer
Plan:
-follow BMP
-pericardial drain per caridology
-continue IS regmine for RTx
-CsA level should be at 7a, one hour before next dose, await results
-replete K
-
-
Date of Service: December 02, 2023
CC / HPI / ROS
-
Chief Complaint:
PATRICE , h/o RTx
History of Present Illness:
PATRICE/Cr down to 1.1
K low
pericardial drain in, but patient thinks it is leaking
BP stable
Review of Systems:
feels better
some OKEEFE
no CP
Labs
-
Labs:
WBC 8.1 10^3/uL (4.8-10.8) 12/02/23 04:08
RBC 4.07 10^6/uL (4.70-6.10) L 12/02/23 04:08
Hgb 11.7 g/dL (13.0-18.0) L 12/02/23 04:08
Hct 34.5 % (39.0-52.0) L 12/02/23 04:08
Plt Count 339 10^3/uL (130-400) 12/02/23 04:08
Sodium 135 mmol/L (135-145) 12/02/23 04:08
Potassium 3.4 mmol/L (3.5-5.1) L 12/02/23 04:08
Chloride 106 mmol/L (98-107) 12/02/23 04:08
Carbon Dioxide 27 mmol/L (22-30) 12/02/23 04:08
BUN 18 mg/dl (9-20) 12/02/23 04:08
Creatinine 1.0 mg/dL (0.7-1.3) 12/02/23 04:08
eGFR > 60.00 12/02/23 04:08
Glucose 101 mg/dl (70-99) H 12/02/23 04:08
Calcium 8.7 mg/dl (8.4-10.2) 12/02/23 04:08
Gnu-E-Pzulvokxlnq Pept 325 pg/ml 11/27/23 18:00
Albumin 3.0 g/dl (3.5-5.0) L 11/28/23 05:14
Physical Exam
-
Vital Signs:
Vital Signs
Temp Pulse Resp BP Pulse Ox
97.8 F 154 20 119/89 94
12/02/23 07:20 12/02/23 08:00 12/02/23 07:20 12/02/23 07:22 12/02/23 07:20
Cardiovascular:: Irregular rate and rhythm
Respiratory:: Bilateral: Coarse
Lung Excursion:: Normal
Abdomen:: Nontender and Soft
Bowel Sounds:: Normal
Extremity Edema:: None: Bilateral:
[2023-12-02] MEDS: KCL 40 MEQ PO (12:24)
[2023-12-02 12:30] LABS: Glucose - Point of Care 175 mg/dl (70-99)
[2023-12-02] MEDS: NOVOLOG FLEXPEN-LOW RESISTANCE 1 UNITS SC (12:30)
--- NOTE | 2023-12-02 14:36 | W.PN.CD ---
Today's Communication / Plan
-
-Interventional Cardiology inserted a new pigtail catheter yesterday; minimal drainage from pericardial drain.
-Post-procedural echocardiogram yesterday revealed an overall small to moderate-sized, primarily fibrinous filled pericardial effusion which was improved compared to the previous the day before.
-Will obtain another echocardiogram tomorrow, then pericardial drain can likely be removed.
-Patient still with suboptimal heart rate control.
-Will increase Toprol-XL to 100 mg daily (received 50 mg this a.m., will give an additional 50 mg now).
-Continue Cardizem CD 240 mg daily.
Impression / Plan
-
Impression/Plan: 73 y/o male with HTN, HDL, DM2, PAF on sotalol/apixaban and ESRD from FSGS s/p renal transplant (followed at [place]) admitted with heart failure symptoms and a large pericardial effusion with early tamponade.
#HFpEF/pericardial effusion
-Acute.
-Effusion is exudative - 660 cc removed (bloody). No evidence of infection (Cx negative or NGTD). Cytology pending.
-Improving after pericardiocentesis (weight is down, diuresing without diuretics).
-Renal function improved.
-GDMT not necessarily absolutely indicated as symptoms were likely due to the effusion.
-Interventional Cardiology inserted a new pigtail catheter yesterday; minimal drainage from pericardial drain.
-Post-procedural echocardiogram yesterday revealed an overall small to moderate size, primarily fibrinous filled pericardial effusion which was improved compared to the previous the day before.
-Will obtain another echocardiogram tomorrow, then pericardial drain can likely be removed.
-No role for colchicine at this time (high risk for transplanted kidney, no compelling evidence of pericarditis).
#Paroxysmal Afib
-Patient still with suboptimal heart rate control.
-Will increase Toprol-XL to 100 mg daily (received 50 mg this a.m., will give an additional 50 mg now).
-Continue Cardizem CD 240 mg daily.
-s/p BRITTANY/DCCV 11/23/23.
-CHADS2-Vasc = 3 (HTN, Age x1, DM2).
-OAC with apixaban 5mg BID now on hold due to bloody pericardial effusion which grew on OAT. Would hold for 4 weeks and consider restart after repeat echo. The patient is within 30 days of a DCCV and back in PAF but the hemorrhagic effusion takes
precedence.
#PATRICE/Renal Transplant
-Creatinine peaked at 2.5, now down to 1.0.
-Suspect PATRICE due to venous congestion and lack of forward flow (cardiac output) in the setting of tamponade but DDx would include rejection.
-Management as per Nephrology.
#HTN
-Chronic, stable on meds.
#Dyslipidemia
-Chronic, stable on Rosuvastatin..
#DMII - per hospitalist.
Subjective/Interval History:
No major events overnight. Still with suboptimal heart rate control.
Physical Exam
Vital Signs/Labs
Vital Signs
Temp Pulse Resp BP Pulse Ox
97.8 F 133 20 124/72 98
12/02/23 11:38 12/02/23 12:00 12/02/23 11:38 12/02/23 11:38 12/02/23 11:38
12/01/23 12/02/23 12/03/23
06:59 06:59 06:59
Actual Weight 102.2 kg 101.8 kg
12/02/23 04:08
12/02/23 04:08
Magnesium 2.1 mg/dl (1.6-2.3) 12/01/23 06:58
11/27/23
18:00
Oil-X-Hzmyorzjmbm Pept 325
Physical Exam
Constitutional: No acute distress and Comfortable
EENT: Anicteric
Cardiovascular: Pedal edema is absent, Systolic murmur absent, Rhythm/rate is irregular and S1S2 is normal
Respiratory: Respiratory effort normal and Lungs clear to auscul.
GI: Soft
Neuro/Psych: AO x 3
Other: Skin (Warm, dry, intact)
Data Reviewed
-
Date of Service: December 02, 2023
EKG: Tracing Personally Visualized and interpreted (Telemetry: A-fib)
Medical Tests (PFT, Pathology etc): Discussed with Patient and Discussed with Family ( at bedside)
Labs: Labs Reviewed by me
[2023-12-02] MEDS: COLACE 100 MG PO (15:32)
[2023-12-02 17:12] LABS: Glucose - Point of Care 236 mg/dl (70-99)
[2023-12-02] MEDS: NOVOLOG FLEXPEN-LOW RESISTANCE 2 UNITS SC (17:45)
--- NOTE | 2023-12-02 20:39 | W.PN.UPDATE ---
Update Note
Progress Note Update
Cardiology Update Note:
-Was called by nurse to come assess patient's pericardial drain
-Pt apparently inadvertently stepped on the drain while in the bathroom
-Drainage catheter is completely out, just the sheath remains
-Sheath is intact, sterilely dressed and clamped off by me, pt is scheduled for echo in the AM tomorrow
-Additionally, rhythm noted to be A-fib 120-150's
-Dr. Caceres updated on the above, order for Amiodarone bolus and gtt initiated
-Will cont. to closely monitor pt overnight
[2023-12-02] MEDS: CORDARONE 103 MG IV (21:33)
[2023-12-02 21:48] LABS: Glucose - Point of Care 227 mg/dl (70-99)
[2023-12-02] MEDS: CORDARONE 518 MG IV (22:03)
[2023-12-02] MEDS: SandIMMUNE 75 MG PO (22:03)
[2023-12-02] MEDS: CRESTOR 5 MG PO (22:03)
--- NOTE | 2023-12-03 00:37 | PTCARENOTE ---
Assumed care of patient at change of shift. During report change, patient rang call andrew to notify nursing staff that his pericardial drain fell out. Patient reports he was leaving the bathroom, and is unsure whether or not he stepped on the drain.
Upon assessment the sheath remains sutured in, but the drain/ catheter is out. Dr. Caceres made aware via tiger text. Edmundo KAN made aware and at bedside--see note for further assessment.
BP stable, sating 96% RA, and denies any pain. Tele remains Afib w/ occasional PVCs. HR in the 110s-150's at rest. Orders obtained to administer Amiodarone bolus follow by Amiodarone gtt. Medication administered--see MAR for further details. During
Amiodarone bolus patient c/o 'heartburn' and states 'I feel flushed'. Diet janae jeremy given. BP stable, and afebrile. Edmundo KAN aware, no new orders obtained. Ok to continue amio gtt. BP remains stable on gtt. Symptoms resolved. pt currently
laying in bed. Call andrew within reach.
[2023-12-03 04:33] VITALS: BP 126/94
[2023-12-03 05:12] LABS: Hematocrit 34.7 % (39.0-52.0); Hemoglobin 11.8 g/dL (13.0-18.0); Mean Corpuscular Hgb 28.9 pg (27.0-31.0); Mean Corpuscular Volume 84.8 fL (80.0-94.0); Mean Platelet Volume 9.9 fL (7.4-10.4); Platelet Count 313 10^3/uL (130-400); Red Blood Cell Count 4.09 10^6/uL (4.70-6.10); Red Cell Dist. Width 12.5 % (11.5-14.5); White Blood Cell Count 8.5 10^3/uL (4.8-10.8)
[2023-12-03 05:31] LABS: Blood Urea Nitrogen 18 mg/dl (9-20); Calcium 8.4 mg/dl (8.4-10.2); Carbon Dioxide 26 mmol/L (22-30); Chloride 105 mmol/L (98-107); Estimated Creatinine Clearance 76 ml/min; Glucose 152 mg/dl (70-99); Potassium 3.4 mmol/L (3.5-5.1); Sodium 136 mmol/L (135-145); eGFR > 60.00
[2023-12-03] MEDS: KCL 40 MEQ PO (06:21)
--- NOTE | 2023-12-03 07:30 | W.PN.HOSP.TC ---
Today's Communication/Plan
-
see bold
Assessment / Plan
Assessment / Plan
73-year-old male with past medical history of HFpEF, pericardial effusion, atrial fibrillation on Eliquis, hypertension, renal transplant, diabetes, obesity, hyperlipidemia; presented for worsening abdominal distention since his recent discharge.�
He had gained 12 pounds in the past few weeks compared to his dry weight.�He had shortness of breath with minimal exertion.� His lower extremity is not so severe.� He denies any chest pain.� He does feel dizzy when he stands up but denies any
episodes of passing out.�He denies any cough or fevers.� He has been making minimal urine despite increased dose of Lasix.
Patient was recently admitted from 11/18 to 11/24 for CHF exacerbation and rapid atrial fibrillation.� He was diuresed, started on heparin and Cardizem.� Cardioversion and BRITTANY was performed unsuccessfully.� He underwent repeat cardioversion which was
successful.� He was maintained on sotalol and Cardizem and Coreg for rate control and transition to Eliquis.�Echocardiogram showed pericardial effusion that appears to be improving.� He was recommended follow-up with transplant team at [facility].
Gen: NAD, AAOx3.
Eyes: EOMI, PERRLA, no scleral icterus.
Neck: supple.
CV: remains tachy, irreg/irreg, +S1/S2, no m/r/g.
Resp: decreased BS L base
Abd: +BS, soft, NT, ND
Skin: No rashes.
Neuro: remains CN 2-12 intact, non-focal.
Psych: Normal mood and affect.
Echo: Left ventricle is small in size. LV ejection fraction is 70-75%, by visual�assessment. Small� right ventricular size. Normal right ventricular systolic function. Large pericardial circumferential effusion measuring up to 2.5-3.0 cm at its
largest dimension with evidence of tamponade physiology RV diastolic collapse,�tricuspid flow variation (40%), and mitral flow variation (30%).
Renal US: No acute abnormality of right iliac fossa transplant kidney identified
Echo 2/2/24: Normal LV size and function with no regional wall motion abnormality.
�Estimated ejection fraction 60 to 65%.
�Small right ventricular size. Normal right ventricular systolic function.
�Circumferential pericardial effusion WITHOUT obvious tamponade.� It measures
�greatest anteriorly at
1.6 cm and posteriorly
2 cm.
�Layered echodense material located within pericardial space, likely coagulum
�given history.
�Compared to TTE from November 28, 2023, pericardial effusion has reaccumulated.
Echo 12/01/23: EF 60-65%. Normal right ventricular size and function. Overall small to moderate-sized, primarily fibrinous-filled pericardial effusion (measuring up to approximately 1.0-1.5 cm anteriorly and posteriorly). Notable left pleural effusion
present.�Compared to previous echo on 11/30/2023, it appears to be mild interval improvement in pericardial effusion size.
Volume overload due to Large pericardial effusion:
-h/o pericardial effusion secondary to everolimus versus heart failure
-initial echo above with large pericardial effusion.
-s/p pericardiocentesis with drain in place 11/28/23
-Repeat echocardiogram was notable for some degree of reaccumulation of the pericardial effusion. This was likely due to a clogged pigtail catheter. New pigtail catheter was inserted on 12/01/23. Repeat echo showed mild improvement in pericardial
effusion size.
-12/02/23PM pt inadvertently removed his pericardial drain
-for echo this AM
-lasix on hold
PATRICE:
-likely due to cardiorenal syndrome (decreased CO for pericardial effusion, lack of forward flow), now resolved (Cr 1.0 from 1.8, baseline 1.2)
-Hyperkalemia, resolved
-h/o renal transplant, cont cyclosporine/prednisone
-follow cyclosporine level
Paroxysmal atrial fibrillation with RVR:
-s/p BRITTANY/CV 11/23/23
-continue Toprol-XL/Diltiazem
-Amiodarone gtt started 12/02/23PM
-Eliquis on hold due to bloody pericardial effusion (for 30 days)
Other problems:
Essential hypertension: Continue metoprolol/Diltiazem
DM2: cont Lantus/SSI/accuchecks
Hyperlipidemia: Continue statin
Obesity due to excess calories: outpatient weight loss
Hyponatremia, resolved
Hypokalemia: PO K
Constipation: colace PRN
FULL/SCDs
Anticipated Discharge: > 48 hours
Subjective/Interval History
-
Date of Service: December 03, 2023
Denies CP/SOB.
Objective Data
-
Labs:
Laboratory Results
12/03/23
04:43
WBC 8.5
Hgb 11.8 L
Hct 34.7 L
Plt Count 313
Sodium 136
Potassium 3.4 L
Chloride 105
Carbon Dioxide 26
BUN 18
Creatinine 1.0
Glucose 152 H
Calcium 8.4
Vital Signs:
Vital Signs
Temp Pulse Resp BP Pulse Ox
97.6 F 121 20 126/94 96
12/03/23 04:33 12/03/23 05:00 12/03/23 04:33 12/03/23 04:33 12/03/23 04:33
I&O
12/02/23 12/03/23 12/04/23
06:59 06:59 06:59
Intake Total 360 / 360 727 / 727
Output Total 1575 / 1575 2150 / 2150
Balance -1215 / -1215 -1423 / -1423
[2023-12-03 07:58] VITALS: BP 154/90
[2023-12-03 08:03] LABS: Glucose - Point of Care 110 mg/dl (70-99)
[2023-12-03] MEDS: NOVOLOG FLEXPEN-LOW RESISTANCE SC ×3 (08:14→18:05)
[2023-12-03 08:55] VITALS: BMI 35.4
--- NOTE | 2023-12-03 08:56 | W.PN.CD ---
Today's Communication / Plan
-
Increase diltiazem to 360 mg daily.
Replace potassium.
Repeat echocardiogram today.
Amiodarone continues with suboptimal rate control.
Role for digoxin?
Impression / Plan
-
Impression/Plan: 73 y/o male with HTN, HDL, DM2, PAF on sotalol/apixaban and ESRD from FSGS s/p renal transplant (followed at [place]) admitted with heart failure symptoms and a large pericardial effusion with early tamponade.
#HFpEF/pericardial effusion
-Acute.
-Effusion is exudative - 660 cc removed (bloody). No evidence of infection (Cx negative or NGTD). Cytology pending.
-Improving after pericardiocentesis (weight is down, diuresing without diuretics).
-Renal function improved.
-GDMT not necessarily absolutely indicated as symptoms were likely due to the effusion.
-Repeat TTE this morning. If no significant change, will d/c pericardial sheath.
-No role for colchicine at this time (high risk for transplanted kidney, no compelling evidence of pericarditis).
#Paroxysmal Afib
-s/p BRITTANY/DCCV 11/23/23.
-Patient subsequently relapsed with suboptimal heart rate control.
-Will increase Toprol-XL to 100 mg daily (received 50 mg this a.m., will give an additional 50 mg now).
-Continue metoprolol 100 mg daily and amiodarone gtt.
-Increase diltiazem to 360 mg daily.
-CHADS2-Vasc = 3 (HTN, Age x1, DM2).
-OAC with apixaban 5mg BID now on hold due to bloody pericardial effusion which grew on OAT. Would hold for 4 weeks and consider restart after repeat echo. The patient is within 30 days of a DCCV and back in PAF but the hemorrhagic effusion takes
precedence.
#Renal Transplant
-Creatinine peaked at 2.5, now down to 1.0.
-Suspect PATRICE due to venous congestion and lack of forward flow (cardiac output) in the setting of tamponade but DDx would include rejection.
-Management as per Nephrology.
-Replace potassium.
#HTN
-Chronic, stable on meds.
#Dyslipidemia
-Chronic, stable on Rosuvastatin.
#DMII - per hospitalist.
Subjective/Interval History:
Patient accidentally removed his pigtail catheter (he stepped on it) yesterday.
HR continues to be an issue. Amiodarone gtt started for rate control. HR remains 130's.
Weight is up 0.5 kg from yesterday but down overall.
Patient is hypertensive to 150's.
Physical Exam
Vital Signs/Labs
Vital Signs
Temp Pulse Resp BP Pulse Ox
36.5 C 131 20 154/90 97
12/03/23 08:03 12/03/23 08:00 12/03/23 08:03 12/03/23 07:58 12/03/23 08:03
12/01/23 12/02/23 12/03/23
11:59 11:59 11:59
Actual Weight 102.2 kg 101.8 kg 102.3 kg
12/03/23 04:43
12/03/23 04:43
Magnesium 2.0 mg/dl (1.6-2.3) 12/03/23 04:43
11/27/23
18:00
Uqb-A-Snufrfcxqkb Pept 325
Physical Exam
Constitutional: No acute distress and Comfortable
EENT: Anicteric and Moist mucous membranes
Cardiovascular: Pedal edema is absent, JVD pressure is normal, Rhythm/rate is irregular, S1S2 is normal and Murmur/rub/gallop absent
Respiratory: Respiratory effort normal, Lungs clear to auscul., Wheeze Absent, Crackles Absent and Rhonchi Absent
GI: Soft, Distention absent, Flat, Non tender, Normal bowel sounds and Distention present
Neuro/Psych: AO x 3
Data Reviewed
-
Date of Service: December 03, 2023
Medical Decision Making: Reviewed Test Results, Independent Historian Assessment, Test Interpretation and Review of Case with other Provider
EKG: Tracing Personally Visualized and interpreted and Report Reviewed by me
Echo: Tracing Personally Visualized and interpreted and Report Reviewed by me
X-Ray/CT/US/MRI/NUC/PET: Image Personally Visualized and interpreted and Report Reviewed by me
Medical Tests (PFT, Pathology etc): Image Personally Visualized and interpreted and Report Reviewed by me
Labs: Labs Reviewed by me
[2023-12-03] MEDS: DELTASONE 5 MG PO (10:08)
[2023-12-03] MEDS: CARDIZEM CD 240 MG PO (10:08)
[2023-12-03] MEDS: LANTUS 0.25 UNITS SC ×2 (10:08→22:20)
[2023-12-03] MEDS: SandIMMUNE 100 MG PO (10:09)
[2023-12-03] MEDS: FLUSH (NSS) 1 FLUSH IV (10:09)
[2023-12-03] MEDS: MAG-TAB SR 84 MG PO ×2 (10:09→20:13)
[2023-12-03] MEDS: TOPROL XL 100 MG PO (10:09)
[2023-12-03] MEDS: VITAMIN D3 (cholecalciferol) 50 MCG PO (10:09)
--- NOTE | 2023-12-03 11:35 | W.PN.NEPH.PH ---
Today's Communication / Plan
-
observe
repeat echo today
Assessment/Plan
-
Assessment:
PATRICE
Hyperkalemia
hyponatremia
mild gap met acidosis
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
pericardial effusion
Afib s/p CV 11/17
FSGS
IgG Gammopathy
T2DM
Anemia
HTN
BK viremia (off MMF)
Nephrolithiasis
Obesity
VIKASH
recurrent skin squamous cell cancer
Plan:
-follow BMP
-creatinine at 1.0
-pericardial drain per caridology
-continue IS regiminefor RTx
-CsA level should be at 7am, one hour before next dose, await results
-replete K
-
-
Date of Service: December 03, 2023
CC / HPI / ROS
-
Chief Complaint:
PATRICE , h/o RTx
History of Present Illness:
PATRICE/Cr down to 1
K low
pericardial drain out, patient accidently removed it last evening
BP stable
Review of Systems:
feels better
some OKEEFE
no CP
Labs
-
Labs:
WBC 8.5 10^3/uL (4.8-10.8) 12/03/23 04:43
RBC 4.09 10^6/uL (4.70-6.10) L 12/03/23 04:43
Hgb 11.8 g/dL (13.0-18.0) L 12/03/23 04:43
Hct 34.7 % (39.0-52.0) L 12/03/23 04:43
Plt Count 313 10^3/uL (130-400) 12/03/23 04:43
Sodium 136 mmol/L (135-145) 12/03/23 04:43
Potassium 3.4 mmol/L (3.5-5.1) L 12/03/23 04:43
Chloride 105 mmol/L (98-107) 12/03/23 04:43
Carbon Dioxide 26 mmol/L (22-30) 12/03/23 04:43
BUN 18 mg/dl (9-20) 12/03/23 04:43
Creatinine 1.0 mg/dL (0.7-1.3) 12/03/23 04:43
eGFR > 60.00 12/03/23 04:43
Glucose 152 mg/dl (70-99) H 12/03/23 04:43
Calcium 8.4 mg/dl (8.4-10.2) 12/03/23 04:43
Lxy-Y-Nnlmmcfslbn Pept 325 pg/ml 11/27/23 18:00
Albumin 3.0 g/dl (3.5-5.0) L 11/28/23 05:14
Physical Exam
-
Vital Signs:
Vital Signs
Temp Pulse Resp BP Pulse Ox
97.7 F 131 20 154/90 97
12/03/23 08:03 12/03/23 08:00 12/03/23 08:03 12/03/23 07:58 12/03/23 08:03
Cardiovascular:: Regular rate and rhythm
Respiratory:: Bilateral: CTA
Lung Excursion:: Normal
Abdomen:: Nontender and Soft
Bowel Sounds:: Normal
Extremity Edema:: +1: Bilateral: (trace)
Garcia Catheter: No
--- NOTE | 2023-12-03 11:44 | CM ---
Chart reviewed. Patient and was at bedside. Patient is independent of ADLS, lives with his in a [address] [facility], [place], ambulates occasionally with a rolling walker. [facility] Plan is for the patient to return home with VN. CM
to follow
--- NOTE | 2023-12-03 11:55 | PTCARENOTE ---
Received patient this morning resting in bed. Pericardial drain sutured in place with tegaderm dressing but tubing and bag not attached after patient had pulled it off last night while in the bathroom. Echo done at the bedside, waiting for results
to determine if drain can be removed. Remains in AF, HR in the 140's. IV amiodarone infusing at 0.5mg/min on the pump via #24 RFA. Call andrew at the bedside.
[2023-12-03 12:15] LABS: Glucose - Point of Care 131 mg/dl (70-99)
[2023-12-03] MEDS: MIRALAX 17 GRAMS PO (13:23)
[2023-12-03] MEDS: CARDIZEM CD 120 MG PO (13:23)
[2023-12-03 13:29] LABS: Cyclosporine A Results 102.1 ng/mL
[2023-12-03 15:42] VITALS: BP 127/87
--- NOTE | 2023-12-03 17:18 | W.PN.UPDATE ---
Update Note
Progress Note Update
Echo unchanged.
Pericardial effusion is fibrinous, likely organized clot.
Pericardial drain pulled at bedside without complication.
Heart rate continues to be uncontrolled.
Convert amiodarone to 400 mg PO BID.
Digoxin load overnight.
[2023-12-03] MEDS: LANOXIN 500 MCG IV (18:06)
[2023-12-03 19:28] VITALS: BP 151/99
[2023-12-03] MEDS: PACERONE 400 MG PO (20:13)
[2023-12-03 21:53] LABS: Glucose - Point of Care 186 mg/dl (70-99)
[2023-12-03] MEDS: CRESTOR 5 MG PO (22:20)
[2023-12-03] MEDS: SandIMMUNE 75 MG PO (22:20)
[2023-12-03 23:26] VITALS: BP 155/91
[2023-12-03] MEDS: LANOXIN 250 MCG IV (23:42)
[2023-12-04] VITALS (8 sets, daily range): BP systolic 139–168; BP diastolic 72–98; BMI 35.4
--- NOTE | 2023-12-04 03:10 | PTCARENOTE ---
Tele monitor remains Afib, HR in the 100-130's. Denies any pain or SOB. Dressing on left middle abdomen intact. Pt aware of POC, call andrew in reach.
[2023-12-04 05:41] LABS: Blood Urea Nitrogen 15 mg/dl (9-20); Calcium 8.7 mg/dl (8.4-10.2); Carbon Dioxide 29 mmol/L (22-30); Chloride 105 mmol/L (98-107); Estimated Creatinine Clearance 76 ml/min; Glucose 103 mg/dl (70-99); Potassium 3.7 mmol/L (3.5-5.1); Sodium 138 mmol/L (135-145); eGFR > 60.00
[2023-12-04] MEDS: LANOXIN 250 MCG IV (06:04)
[2023-12-04 07:07] LABS: Glucose - Point of Care 91 mg/dl (70-99)
[2023-12-04] MEDS: NOVOLOG FLEXPEN-LOW RESISTANCE SC ×2 (08:20→13:45)
--- NOTE | 2023-12-04 08:40 | W.PN.HOSP.TC ---
Today's Communication/Plan
-
see bold
Assessment / Plan
Assessment / Plan
73-year-old male with past medical history of HFpEF, pericardial effusion, atrial fibrillation on Eliquis, hypertension, renal transplant, diabetes, obesity, hyperlipidemia; presented for worsening abdominal distention since his recent discharge.�
He had gained 12 pounds in the past few weeks compared to his dry weight.�He had shortness of breath with minimal exertion.� His lower extremity is not so severe.� He denies any chest pain.� He does feel dizzy when he stands up but denies any
episodes of passing out.�He denies any cough or fevers.� He has been making minimal urine despite increased dose of Lasix.
Patient was recently admitted from 11/18 to 11/24 for CHF exacerbation and rapid atrial fibrillation.� He was diuresed, started on heparin and Cardizem.� Cardioversion and BRITTANY was performed unsuccessfully.� He underwent repeat cardioversion which was
successful.� He was maintained on sotalol and Cardizem and Coreg for rate control and transition to Eliquis.�Echocardiogram showed pericardial effusion that appears to be improving.� He was recommended follow-up with transplant team at [facility].
Gen: NAD, AAOx3.
Eyes: EOMI, PERRLA, no scleral icterus.
Neck: supple.
CV: Continues to remain tachy, irreg/irreg, +S1/S2, no m/r/g.
Resp: decreased breath sounds in the bases
Abd: +BS, soft, NT, ND
Skin: No rashes. 2+ bilateral lower extremity edema
Neuro: Continues to remain CN 2-12 intact, non-focal.
Psych: Normal mood and affect.
Echo: Left ventricle is small in size. LV ejection fraction is 70-75%, by visual�assessment. Small� right ventricular size. Normal right ventricular systolic function. Large pericardial circumferential effusion measuring up to 2.5-3.0 cm at its
largest dimension with evidence of tamponade physiology RV diastolic collapse,�tricuspid flow variation (40%), and mitral flow variation (30%).
Renal US: No acute abnormality of right iliac fossa transplant kidney identified
Echo 11/30/23: Normal LV size and function with no regional wall motion abnormality.
�Estimated ejection fraction 60 to 65%.
�Small right ventricular size. Normal right ventricular systolic function.
�Circumferential pericardial effusion WITHOUT obvious tamponade.� It measures
�greatest anteriorly at
1.6 cm and posteriorly
2 cm.
�Layered echodense material located within pericardial space, likely coagulum
�given history.
�Compared to TTE from November 28, 2023, pericardial effusion has reaccumulated.
Echo 12/01/23: EF 60-65%. Normal right ventricular size and function. Overall small to moderate-sized, primarily fibrinous-filled pericardial effusion (measuring up to approximately 1.0-1.5 cm anteriorly and posteriorly). Notable left pleural effusion
present.�Compared to previous echo on 11/30/2023, it appears to be mild interval improvement in pericardial effusion size.
Echo 12/03/23: Small pericardial effusion, mostly posterior.� The anterior effusion appears�fibrinous.�No significant change from 12/01/23.
Volume overload due to Large pericardial effusion:
-h/o pericardial effusion secondary to everolimus versus heart failure
-initial echo above with large pericardial effusion.
-s/p pericardiocentesis with drain in place 11/28/23
-Repeat echocardiogram was notable for some degree of reaccumulation of the pericardial effusion. This was likely due to a clogged pigtail catheter. New pigtail catheter was inserted on 12/01/23. Repeat echo showed mild improvement in pericardial
effusion size.
-12/02/23PM pt inadvertently removed his pericardial drain
-12/03/23 echo unchanged in the anterior fusion appeared to be fibrinous.
-lasix on hold
-Check chest x-ray
PATRICE:
-likely due to cardiorenal syndrome (decreased CO for pericardial effusion, lack of forward flow), now resolved (Cr 1.0 from 1.8, baseline 1.2)
-Hyperkalemia, resolved
-h/o renal transplant, cont cyclosporine/prednisone
-follow cyclosporine level
Paroxysmal atrial fibrillation with RVR:
-s/p BRITTANY/CV 11/23/23
-continue Toprol-XL, Diltiazem (increased dose)
-cotn Digoxin
-Amiodarone gtt started 12/02/23PM, not transitioned to PO Amio
-Eliquis on hold due to bloody pericardial effusion (for 30 days)
Other problems:
Essential hypertension: Continue metoprolol/Diltiazem
DM2: cont Lantus/SSI/accuchecks
Hyperlipidemia: Continue statin
Obesity due to excess calories: outpatient weight loss
Hyponatremia, resolved
Hypokalemia, resolved
Constipation: colace PRN
FULL/SCDs
Anticipated Discharge: 24 - 48 hours
Subjective/Interval History
-
Date of Service: December 04, 2023
Denies chest pain or shortness of breath.
Objective Data
-
Labs:
Laboratory Results
12/04/23
04:42
Sodium 138
Potassium 3.7
Chloride 105
Carbon Dioxide 29
BUN 15
Creatinine 1.0
Glucose 103 H
Calcium 8.7
Vital Signs:
Vital Signs
Temp Pulse Resp BP Pulse Ox
98 F 118 16 140/89 96
12/04/23 07:01 12/04/23 07:03 12/04/23 07:01 12/04/23 07:03 12/04/23 07:01
I&O
12/03/23 12/04/23 12/05/23
06:59 06:59 06:59
Intake Total 727 / 727
Output Total 2200 / 2200 1675 / 1675 200 / 200
Balance -1473 / -1473 -1675 / -1675 -200 / -200
[2023-12-04] MEDS: PACERONE 400 MG PO ×2 (08:51→21:00)
[2023-12-04] MEDS: CARDIZEM CD 360 MG PO (08:51)
[2023-12-04] MEDS: DELTASONE 5 MG PO (08:51)
[2023-12-04] MEDS: TOPROL XL 100 MG PO (08:51)
[2023-12-04] MEDS: VITAMIN D3 (cholecalciferol) 50 MCG PO (08:51)
[2023-12-04] MEDS: SandIMMUNE 100 MG PO (08:51)
[2023-12-04] MEDS: MAG-TAB SR 84 MG PO ×2 (08:51→21:00)
[2023-12-04] MEDS: MIRALAX PO (08:53)
[2023-12-04] MEDS: KCL 40 MEQ PO (08:54)
[2023-12-04] MEDS: LANTUS 0.25 UNITS SC ×2 (08:56→21:03)
--- NOTE | 2023-12-04 10:25 | W.PN.UPDATE ---
Update Note
Progress Note Update
EP Consult Summary
Imp
Persistent AFib with RVR
Hemorrhagic pericardial tamponade
Renal transplant
Suggest
- Home on current aggressive rate control
- Decrease Amio in 14 days to 200 mg daily or sooner for symptoms or HR less than 60 bpm
- Echo in 1 week (sooner if symptoms return)
- Initiate Pradaxa 2-3 weeks after pericardiocentesis (performed 11/28/2023)
- Echo 4-7 days after Pradaxa initiated
- If tolerates Pradaxa for 1-2 weeks then proceed to BRITTANY/Cardioversion
- gas turbine powerplant mechanic helper should consider ablation as we do not want to use longterm Amiodarone
- MCFP reasonable to consider left atrial exclusion (Watchman)
- If does OK with ambulation today OK to go home on current rate control strategy with close follow up with our office (clinical and f/u echo and BRITTANY/DCCV
- For cardioversion: No Dig/BB/Ca nellie the DAY before and the AM of cardioversion to decrease risk of post-conversion bradycardia
--- NOTE | 2023-12-04 11:19 | CM ---
Chart reviewed. Patient is indpendent of ADLS, lives with his in a [address], 3 [facility], has a rolling walker if needed. Referral sent to [facility]. Plan is for the patient to return home with [facility]. CM to follow
[2023-12-04 11:51] LABS: Glucose - Point of Care 108 mg/dl (70-99)
--- NOTE | 2023-12-04 12:19 | W.PN.NEPH.PH ---
Today's Communication / Plan
-
stable
Assessment/Plan
-
Assessment:
PATRICE
Hyperkalemia
hyponatremia
mild gap met acidosis
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
pericardial effusion
Afib s/p CV 11/17
FSGS
IgG Gammopathy
T2DM
Anemia
HTN
BK viremia (off MMF)
Nephrolithiasis
Obesity
VIKASH
recurrent skin squamous cell cancer
Plan:
-follow BMP
-creatinine at 1.0
-pericardial drain per cardiology
-continue IS regimen for RTx
-CsA level should be at 7am, one hour before next dose, await results: 102 on 12/01/23
-will need follow up cya trough next week: patient has labwork for JEFF
-repeat echo: notes small pericardial effusion mostly posterior anterior effusion appears fibrinous
-
-
Date of Service: December 04, 2023
CC / HPI / ROS
-
Chief Complaint:
PATRICE , h/o RTx
History of Present Illness:
PATRICE/Cr down to 1
K low
pericardial drain out, patient accidently removed it
BP stable
Review of Systems:
feels better
some OKEEFE
no CP
Labs
-
Labs:
WBC 8.5 10^3/uL (4.8-10.8) 12/03/23 04:43
RBC 4.09 10^6/uL (4.70-6.10) L 12/03/23 04:43
Hgb 11.8 g/dL (13.0-18.0) L 12/03/23 04:43
Hct 34.7 % (39.0-52.0) L 12/03/23 04:43
Plt Count 313 10^3/uL (130-400) 12/03/23 04:43
Sodium 138 mmol/L (135-145) 12/04/23 04:42
Potassium 3.7 mmol/L (3.5-5.1) 12/04/23 04:42
Chloride 105 mmol/L (98-107) 12/04/23 04:42
Carbon Dioxide 29 mmol/L (22-30) 12/04/23 04:42
BUN 15 mg/dl (9-20) 12/04/23 04:42
Creatinine 1.0 mg/dL (0.7-1.3) 12/04/23 04:42
eGFR > 60.00 12/04/23 04:42
Glucose 103 mg/dl (70-99) H 12/04/23 04:42
Calcium 8.7 mg/dl (8.4-10.2) 12/04/23 04:42
Huy-I-Qltkjypnaeq Pept 325 pg/ml 11/27/23 18:00
Albumin 3.0 g/dl (3.5-5.0) L 11/28/23 05:14
Physical Exam
-
Vital Signs:
Vital Signs
Temp Pulse Resp BP Pulse Ox
97.9 F 102 16 140/89 99
12/04/23 11:19 12/04/23 11:19 12/04/23 11:19 12/04/23 07:03 12/04/23 11:19
Cardiovascular:: Regular rate and rhythm
Respiratory:: Bilateral: CTA
Lung Excursion:: Normal
Abdomen:: Nontender and Soft
Bowel Sounds:: Normal
Extremity Edema:: None: Bilateral:
Garcia Catheter: No
[2023-12-04] MEDS: LANOXIN 125 MCG PO (13:45)
[2023-12-04 17:39] LABS: Glucose - Point of Care 171 mg/dl (70-99)
--- NOTE | 2023-12-04 18:04 | PTCARENOTE ---
Ambulatory in room independently. HR's much better today A Fib 70-90's.
[2023-12-04] MEDS: NOVOLOG FLEXPEN-LOW RESISTANCE 1 UNITS SC (18:11)
[2023-12-04] MEDS: CRESTOR 5 MG PO (20:59)
[2023-12-04] MEDS: SandIMMUNE 75 MG PO (21:01)
[2023-12-04 21:09] LABS: Glucose - Point of Care 186 mg/dl (70-99)
--- NOTE | 2023-12-04 22:00 | PTCARENOTE ---
resumed care of patient from previous RN. walking rounds done. AFIB on monitor. HR 80-115. VSS. Patient with no complaints. Tolerating all meds. independent in care.will continue ot monitor.
--- NOTE | 2023-12-05 01:01 | PTCARENOTE ---
Assumed care of patient at 2300, sitting at the side of the bed voiding in the urinal. VSS, remains in AF, rate in the 90's. Offers no complaints at this time.
[2023-12-05 03:31] VITALS: BP 153/79
[2023-12-05 06:40] VITALS: BMI 34.3
[2023-12-05 07:17] LABS: Blood Urea Nitrogen 13 mg/dl (9-20); Calcium 9.1 mg/dl (8.4-10.2); Carbon Dioxide 29 mmol/L (22-30); Chloride 100 mmol/L (98-107); Estimated Creatinine Clearance 83 ml/min; Glucose 87 mg/dl (70-99); Magnesium 1.6 mg/dl (1.6-2.3); Potassium 3.3 mmol/L (3.5-5.1); Sodium 138 mmol/L (135-145); eGFR > 60.00
--- NOTE | 2023-12-05 07:35 | W.PN.HOSP.TC ---
Today's Communication/Plan
-
d/c
Assessment / Plan
Assessment / Plan
73-year-old male with past medical history of HFpEF, pericardial effusion, atrial fibrillation on Eliquis, hypertension, renal transplant, diabetes, obesity, hyperlipidemia; presented for worsening abdominal distention since his recent discharge.�
He had gained 12 pounds in the past few weeks compared to his dry weight.�He had shortness of breath with minimal exertion.� His lower extremity is not so severe.� He denies any chest pain.� He does feel dizzy when he stands up but denies any
episodes of passing out.�He denies any cough or fevers.� He has been making minimal urine despite increased dose of Lasix.
Patient was recently admitted from 11/18 to 11/24 for CHF exacerbation and rapid atrial fibrillation.� He was diuresed, started on heparin and Cardizem.� Cardioversion and BRITTANY was performed unsuccessfully.� He underwent repeat cardioversion which was
successful.� He was maintained on sotalol and Cardizem and Coreg for rate control and transition to Eliquis.�Echocardiogram showed pericardial effusion that appears to be improving.� He was recommended follow-up with transplant team at [facility].
Gen: NAD, AAOx3.
Eyes: EOMI, PERRLA, no scleral icterus.
Neck: supple.
CV: tachy, irreg/irreg, +S1/S2, no m/r/g.
Resp: CTAB
Abd: +BS, soft, NT, ND
Skin: No rashes. trace bilateral lower extremity edema, R>L
Neuro: Continues to remain CN 2-12 intact, non-focal.
Psych: Normal mood and affect.
Echo: Left ventricle is small in size. LV ejection fraction is 70-75%, by visual�assessment. Small� right ventricular size. Normal right ventricular systolic function. Large pericardial circumferential effusion measuring up to 2.5-3.0 cm at its
largest dimension with evidence of tamponade physiology RV diastolic collapse,�tricuspid flow variation (40%), and mitral flow variation (30%).
Renal US: No acute abnormality of right iliac fossa transplant kidney identified
Echo 11/30/23: Normal LV size and function with no regional wall motion abnormality.
�Estimated ejection fraction 60 to 65%.
�Small right ventricular size. Normal right ventricular systolic function.
�Circumferential pericardial effusion WITHOUT obvious tamponade.� It measures
�greatest anteriorly at
1.6 cm and posteriorly
2 cm.
�Layered echodense material located within pericardial space, likely coagulum
�given history.
�Compared to TTE from November 28, 2023, pericardial effusion has reaccumulated.
Echo 12/01/23: EF 60-65%. Normal right ventricular size and function. Overall small to moderate-sized, primarily fibrinous-filled pericardial effusion (measuring up to approximately 1.0-1.5 cm anteriorly and posteriorly). Notable left pleural effusion
present.�Compared to previous echo on 11/30/2023, it appears to be mild interval improvement in pericardial effusion size.
Echo 12/03/23: Small pericardial effusion, mostly posterior.� The anterior effusion appears�fibrinous.�No significant change from 12/01/23.
CXR 12/04/23: Small left pleural effusion with underlying atelectasis, similar to that seen on the 11/27/2023 examination. Mild cardiomegaly without associated pulmonary edema.
Volume overload due to Large pericardial effusion:
-h/o pericardial effusion secondary to everolimus versus heart failure
-initial echo above with large pericardial effusion.
-s/p pericardiocentesis with drain in place 11/28/23
-Repeat echocardiogram was notable for some degree of reaccumulation of the pericardial effusion. This was likely due to a clogged pigtail catheter. New pigtail catheter was inserted on 12/01/23. Repeat echo showed mild improvement in pericardial
effusion size.
-12/02/23PM pt inadvertently removed his pericardial drain
-12/03/23 echo unchanged in the anterior fusion appeared to be fibrinous.
-on d/c, lasix 20mg PO daily for wt gain > 2lbs in 24 hours
PATRICE:
-likely due to cardiorenal syndrome (decreased CO for pericardial effusion, lack of forward flow), now resolved (Cr 1.0 from 1.8, baseline 1.2)
-Hyperkalemia, resolved
-h/o renal transplant, cont cyclosporine/prednisone
-follow cyclosporine level
Paroxysmal atrial fibrillation with RVR:
-s/p BRITTANY/CV 11/23/23
-continue Toprol-XL, Diltiazem (increased dose)
-cont Digoxin
-Amiodarone gtt started 12/02/23PM, now transitioned to PO Amio
-Eliquis on hold due to bloody pericardial effusion (for 30 days). Will be on Praxada in the future.
Other problems:
Essential hypertension: Continue metoprolol/Diltiazem
DM2: cont Lantus/SSI/accuchecks
Hyperlipidemia: Continue statin
Obesity due to excess calories: outpatient weight loss
Hyponatremia, resolved
Hypokalemia, resolved
Constipation: colace PRN
Case discussed with pt's .
Case discussed with cardiology
FULL/SCDs
Total time spent on d/c = 40 min. This included today's physical exam, progress note, review of laboratory and diagnostic data, preparation of discharge documents and prescriptions, and discussions about the pt's hospital course and discharge plan
with the patient and other medical field representative involved in the patient's care.
Anticipated Discharge: Today
Subjective/Interval History
-
Date of Service: December 05, 2023
No new complaints.
Objective Data
-
Labs:
Laboratory Results
12/05/23
06:29
Sodium 138
Potassium 3.3 L
Chloride 100
Carbon Dioxide 29
BUN 13
Creatinine 0.9
Glucose 87
Calcium 9.1
Vital Signs:
Vital Signs
Temp Pulse Resp BP Pulse Ox
98.5 F 90 20 153/79 96
12/05/23 03:37 12/05/23 03:31 12/05/23 03:37 12/05/23 03:31 12/05/23 03:37
I&O
12/04/23 12/05/23 12/06/23
06:59 06:59 06:59
Output Total 1675 / 1675 4375 / 4375
Balance -1675 / -1675 -4375 / -4375
[2023-12-05 08:12] VITALS: BP 150/95
[2023-12-05 08:16] LABS: Glucose - Point of Care 86 mg/dl (70-99)
--- NOTE | 2023-12-05 08:23 | W.PN.CD ---
Today's Communication / Plan
-
As my comments yesterday:
- Home on current aggressive rate control
- Decrease Amio in 14 days to 200 mg daily or sooner for symptoms or HR less than 60 bpm
- Echo in 1 week (sooner if symptoms return)
- Initiate Pradaxa 2-3 weeks after pericardiocentesis (performed 11/28/2023)
- Echo 4-7 days after Pradaxa initiated
- If tolerates Pradaxa for 1-2 weeks then proceed to BRITTANY/Cardioversion
- buttermaker should consider ablation as we do not want to use assisted Amiodarone
- snf reasonable to consider left atrial exclusion (Watchman)
- If does OK with ambulation today OK to go home on current rate control strategy with close follow up with our office (clinical and f/u echo and BRITTANY/DCCV
-�For cardioversion: No Dig/BB/Ca nellie the DAY before and the AM of cardioversion to decrease risk of post-conversion bradycardia
Also will need a BMP
We will arrang cardiology follow up and echo
Impression / Plan
-
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
Pericardial tamponade
- Resolved
- Echo with minimal effusion
AFib, persistent
- Rate control is accetpatble for the short term
HFpEF
Hypokalemia from diuresis
Resolved acute renal failure
Prior renal transplant
HTN
Mixed hyperlipidemia
DM
Subjective/Interval History:
Doing well.
Physical Exam
Vital Signs/Labs
Vital Signs
Temp Pulse Resp BP Pulse Ox
97.8 F 90 20 153/79 98
12/05/23 08:12 12/05/23 03:31 12/05/23 08:12 12/05/23 03:31 12/05/23 08:12
12/04/23 12/05/23 12/06/23
06:59 06:59 06:59
Actual Weight 102.3 kg 99.2 kg
12/03/23 04:43
12/05/23 06:29
Magnesium 1.6 mg/dl (1.6-2.3) 12/05/23 06:29
11/27/23
18:00
Nkw-B-Rmetwldlyfs Pept 325
Physical Exam
Constitutional: No acute distress
EENT: Anicteric
Cardiovascular: Rhythm & rate is regular and Pedal edema is absent
Respiratory: Respiratory effort normal and Lungs clear to auscul.
GI: Soft and Distention absent
Neuro/Psych: AO x 3
Data Reviewed
-
Date of Service: December 05, 2023
[2023-12-05] MEDS: CARDIZEM CD 360 MG PO (09:13)
[2023-12-05] MEDS: DELTASONE 5 MG PO (09:13)
[2023-12-05] MEDS: SandIMMUNE 100 MG PO (09:13)
--- NOTE | 2023-12-05 09:13 | W.PN.NEPH.PH ---
Today's Communication / Plan
-
dc
Assessment/Plan
-
Assessment:
PATRICE
Hyperkalemia
hyponatremia
mild gap met acidosis
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
pericardial effusion
Afib s/p CV 11/17
FSGS
IgG Gammopathy
T2DM
Anemia
HTN
BK viremia (off MMF)
Nephrolithiasis
Obesity
VIKASH
recurrent skin squamous cell cancer
Plan:
-follow BMP
-continue IS regimen for RTx
-CsA level appropriate goal 75-100
-BP management per cardiology
-
-
Date of Service: December 05, 2023
CC / HPI / ROS
-
Chief Complaint:
PATRICE , h/o RTx
History of Present Illness:
PATRICE/Cr down to 0.9
K low 3.3
pericardial drain out
BP stable high
Review of Systems:
feels better
some OKEEFE
no CP
Labs
-
Labs:
WBC 8.5 10^3/uL (4.8-10.8) 12/03/23 04:43
RBC 4.09 10^6/uL (4.70-6.10) L 12/03/23 04:43
Hgb 11.8 g/dL (13.0-18.0) L 12/03/23 04:43
Hct 34.7 % (39.0-52.0) L 12/03/23 04:43
Plt Count 313 10^3/uL (130-400) 12/03/23 04:43
Sodium 138 mmol/L (135-145) 12/05/23 06:29
Potassium 3.3 mmol/L (3.5-5.1) L 12/05/23 06:29
Chloride 100 mmol/L (98-107) 12/05/23 06:29
Carbon Dioxide 29 mmol/L (22-30) 12/05/23 06:29
BUN 13 mg/dl (9-20) 12/05/23 06:29
Creatinine 0.9 mg/dL (0.7-1.3) 12/05/23 06:29
eGFR > 60.00 12/05/23 06:29
Glucose 87 mg/dl (70-99) 12/05/23 06:29
Calcium 9.1 mg/dl (8.4-10.2) 12/05/23 06:29
Jyg-W-Wephytrobxe Pept 325 pg/ml 11/27/23 18:00
Albumin 3.0 g/dl (3.5-5.0) L 11/28/23 05:14
Physical Exam
-
Vital Signs:
Vital Signs
Temp Pulse Resp BP Pulse Ox
97.8 F 98 20 150/95 98
12/05/23 08:12 12/05/23 08:12 12/05/23 08:12 12/05/23 08:12 12/05/23 08:12
Cardiovascular:: Regular rate and rhythm
Respiratory:: Bilateral: Coarse
Lung Excursion:: Normal
Abdomen:: Nontender and Soft
Bowel Sounds:: Normal
Extremity Edema:: None: Bilateral:
[2023-12-05] MEDS: NOVOLOG FLEXPEN-LOW RESISTANCE SC ×2 (09:14→12:41)
[2023-12-05] MEDS: MIRALAX PO (09:14)
[2023-12-05] MEDS: PACERONE 400 MG PO (09:14)
[2023-12-05] MEDS: VITAMIN D3 (cholecalciferol) 50 MCG PO (09:14)
[2023-12-05] MEDS: TOPROL XL 100 MG PO (09:14)
[2023-12-05] MEDS: KCL 40 MEQ PO (10:02)
[2023-12-05] MEDS: MAG-TAB SR 84 MG PO (10:02)
[2023-12-05] MEDS: LANTUS 0.25 UNITS SC (10:02)
--- NOTE | 2023-12-05 11:17 | CM ---
Chart reviewed. Patient is independent of ADLS, lives with his in a [address], 3 [place], has a rolling walker at home. Referral sent to [facility]. Plan is for the patient to return home with [facility]. CM to follow
[2023-12-05 11:34] LABS: Glucose - Point of Care 135 mg/dl (70-99)
[2023-12-05 11:35] VITALS: BP 150/76
[2023-12-05] MEDS: LANOXIN 125 MCG PO (12:41)
--- NOTE | 2023-12-05 13:10 | W.DCSUMMARY ---
Addendum entered and electronically signed by Bob Whitman MD 12/05/23 13:42:
Coreg has been removed from the discharge medication list.
Original Note:
Discharge Summary
Discharge Data
Date of Admission: 11/27/23
Date of Discharge: 12/05/23
-
Pending Results: No
Hospital Course
Primary diagnoses:
Volume overload due to large pericardial effusion and pericardial tamponade
Acute kidney injury
Paroxysmal atrial fibrillation with a rapid ventricular response
Secondary diagnoses:
h/o renal transplant
Essential hypertension
Type 2 diabetes mellitus
Hyperlipidemia
Obesity due to excess calories
Hyponatremia
Hyperkalemia
Hypokalemia
Constipation
Consultants:
Cardiology
Nephrology
Imaging:
Echo 11/28/23: Left ventricle is small in size. LV ejection fraction is 70-75%, by visual�assessment. Small� right ventricular size. Normal right ventricular systolic function. Large pericardial circumferential effusion measuring up to 2.5-3.0 cm at
its largest dimension with evidence of tamponade physiology RV diastolic collapse,�tricuspid flow variation (40%), and mitral flow variation (30%).
Renal US: No acute abnormality of right iliac fossa transplant kidney identified
Echo 11/30/23: Normal LV size and function with no regional wall motion abnormality.
�Estimated ejection fraction 60 to 65%.
�Small right ventricular size. Normal right ventricular systolic function.
�Circumferential pericardial effusion WITHOUT obvious tamponade.� It measures
�greatest anteriorly at
1.6 cm and posteriorly
2 cm.
�Layered echodense material located within pericardial space, likely coagulum
�given history.
�Compared to TTE from November 28, 2023, pericardial effusion has reaccumulated.
Echo 12/01/23: EF 60-65%. Normal right ventricular size and function. Overall small to moderate-sized, primarily fibrinous-filled pericardial effusion (measuring up to approximately 1.0-1.5 cm anteriorly and posteriorly). Notable left pleural effusion
present.�Compared to previous echo on 11/30/2023, it appears to be mild interval improvement in pericardial effusion size.
Echo 12/03/23: Small pericardial effusion, mostly posterior.� The anterior effusion appears�fibrinous.�No significant change from 12/01/23.
CXR 12/04/23: Small left pleural effusion with underlying atelectasis, similar to that seen on the 11/27/2023 examination. Mild cardiomegaly without associated pulmonary edema.
73-year-old male presented with a chief complaint of worsening abdominal distention and weight gain as well as shortness of breath with minimal exertion as outlined in the H&P done on admission. Hospital course by problem list:
Volume overload due to Large pericardial effusion: The patient had a history of pericardial effusion secondary to everolimus versus heart failure. All echocardiograms above. Initial echocardiogram showed large pericardial effusion. He underwent
pericardiocentesis with drain placement on 11/28/23. Repeat echocardiogram was notable for some degree of reaccumulation of the pericardial effusion.� This was likely due to a clogged pigtail catheter.�A new pigtail catheter was inserted on 12/01/23.
Repeat echo showed mild improvement in pericardial effusion size. On 12/02/23PM the patient inadvertently removed his pericardial drain. Echocardiogram on 12/03/23 showed no change in the anterior effusion which appeared to be fibrinous. Of note, on
discharge the patient was given Lasix 20mg PO daily for wt gain > 2lbs in 24 hours.
PATRICE: This was likely due to cardiorenal syndrome (decreased cardiac output due to pericardial effusion, lack of forward flow) which resolved with treatment of large pericardial effusion. The patient also had hyperkalemia which resolved. Patient
was followed by nephrology
Paroxysmal atrial fibrillation with RVR: The patient had underwent BRITTANY/CV on 11/23/23. Patient's medications were adjusted while hospitalized. He was on Amiodarone drip and was transitioned to oral amiodarone. On discharge she was also on
Toprol-XL 100 mg daily and Cardizem CD 360 mg daily. Eliquis was held due to bloody pericardial effusion (for 30 days). He will likely be on Praxada in the future.
Discharge Plan
-
Patient Disposition: Home (Routine Discharge)
Discharge Diagnosis/Procedures: Volume overload due to large pericardial effusion and pericardial tamponade, acute kidney injury, paroxysmal atrial fibrillation with a rapid ventricular response
Condition: Good
Diet: Low Sodium and Diabetic, Carb Controlled
Additional Diets: fluid restrict to 1500cc/day
Activity: As tolerated
Driving Restrictions: As prior to admission
Blood Work: BMP in 1 week, script from PCP or cardiology
Others Tests: Echocardiogram in one week. This is at [facility] on ------ at ------. Please arrive 15 minutes early to register.
Specialty Instructions: Weigh Daily- Call MD for wt gain/loss 3 lbs overnight/5 lbs in 1 week
Referrals:
[facility] [Outside] - in one to two days
Naomy Conteh DO [Family Provider] - in less than 1 week
Prescriptions:
New
polyethylene glycol 3350 [HealthyLax] 17 gram Powder In Packet
17 g PO DAILY Qty: 1 0RF
diltiazem HCl 180 mg Capsule,Extended Release 24hr
360 mg PO DAILY Qty: 30 0RF
amiodarone [Pacerone] 200 mg Tablet
400 mg PO BID Qty: 56 0RF
metoprolol succinate 100 mg Tablet Extended Release 24 Hr
100 mg PO DAILY Qty: 30 0RF
digoxin 125 mcg (0.125 mg) Tablet
125 mcg PO NOON Qty: 30 0RF
furosemide 20 mg Tablet
20 mg PO DAILY PRN (Reason: weight gain > 2 lbs in 24 hour) Qty: 30 0RF
docusate sodium 100 mg Capsule
100 mg PO BIDPRN PRN (Reason: constipation) Qty: 0 0RF
amiodarone 200 mg tablet
200 mg PO DAILY Qty: 30 0RF
Rx Instructions:
start 12/19/23
Continued
prednisone 5 MG tablet
5 mg PO DAILY
rosuvastatin 5 MG tablet
5 mg PO HS
Slow-Mag 71.5 mg Tablet,Delayed Release (Dr/Ec)
143 mg PO BID
cyclosporine 25 mg Capsule
75 mg PO HS
Patient Comments:
11/18/2023, pt. gets filled at [facility] in [place].
cyclosporine 100 mg Capsule
100 mg PO DAILY
Patient Comments:
11/18/2023, pt. gets filled at [facility] in [place].
acetaminophen [Tylenol Extra Strength] 500 mg Tablet
1,000 mg PO Q6HPRN PRN (Reason: mild pain)
insulin glargine [Lantus Solostar U-100 Insulin] 100 unit/mL (3 mL) Insulin Pen
25 unit SC BID
cholecalciferol (vitamin D3) 50 mcg (2,000 unit) Capsule
50 mcg PO DAILY@0900
carvedilol 6.25 mg Tablet
6.25 mg PO BID Qty: 60 0RF
Mounjaro 5 mg/0.5 mL Pen Injector
5 mg SC TU
Discontinued
sotalol 80 mg Tablet
80 mg PO Q12H Qty: 60 0RF
diltiazem HCl 240 mg Capsule,Extended Release 24hr
240 mg PO DAILY Qty: 30 0RF
Eliquis 5 mg Tablet
5 mg PO BID Qty: 60 0RF
furosemide 40 mg tablet
80 mg PO BID
potassium chloride 20 mEq tablet,ER particles/crystals
40 meq PO DAILY
Discharge Orders:
Discharge Patient (As Directed); Ordered 12/05/23
Ordered By: Bob Whitman
Care Plan Goals
Care Plan Goals:
Problem: Readiness for enhanced knowledge related to diagnosis and treatment plan
Goal: Understand your diagnosis and treatment plan needs, including medications if applicable.
Instructions: Know your diagnosis, underlying causes and treatment plan options, including medications if applicable. Consult with your health care team to learn about your diagnosis and treatment plan, including medications if applicable.
== END 2023-12-05 15:17 | disposition home health service (06) | DRG 270 ==
LOC: IVU 21:59
PROVIDERS: Emergency Medicine; Internal Medicine; Internal Medicine Cardiovascular Disease; Specialist; ADMITTING PHYSICIAN Hospitalist; ATTENDING PHYSICIAN Internal Medicine; CONSULT PHYSICIAN Internal Medicine; CONSULT PHYSICIAN Internal Medicine Cardiovascular Disease; EMERGENCY PHYSICIAN Emergency Medicine; FAMILY PHYSICIAN Family Medicine; OTHER PHYSICIAN Internal Medicine
PROC: 0W9D40Z Drainage of Pericardial Cavity with Drainage Device, Percutaneous Endoscopic Approach (ICD-10-PCS; 2023-11-28)
DX: I13.2 Hypertensive heart and chronic kidney disease with heart failure and with stage 5 chronic kidney disease, or end stage renal disease (principal); I50.43 Acute on chronic combined systolic (congestive) and diastolic (congestive) heart failure; N18.6 End stage renal disease; I31.39 Other pericardial effusion (noninflammatory); E87.1 Hypo-osmolality and hyponatremia; I48.19 Other persistent atrial fibrillation; N17.9 Acute kidney failure, unspecified; R18.8 Other ascites; T86.19 Other complication of kidney transplant; D84.821 Immunodeficiency due to drugs; E87.20 Acidosis, unspecified; I31.4 Cardiac tamponade; E87.5 Hyperkalemia; E11.22 Type 2 diabetes mellitus with diabetic chronic kidney disease; D47.2 Monoclonal gammopathy; D64.9 Anemia, unspecified; Y83.0 Surgical operation with transplant of whole organ as the cause of abnormal reaction of the patient, or of later complication, without mention of misadventure at the time of the procedure; E66.09 Other obesity due to excess calories; E87.6 Hypokalemia; K59.00 Constipation, unspecified; Z79.01 Long term (current) use of anticoagulants; Z87.891 Personal history of nicotine dependence; Z68.34 Body mass index [BMI] 34.0-34.9, adult; B97.89 Other viral agents as the cause of diseases classified elsewhere; E78.2 Mixed hyperlipidemia; G47.33 Obstructive sleep apnea (adult) (pediatric)
CPT/HCPCS: 88305; 93308; 33016; 71046; 76705; 76776; 80048; 80053; 80158; 81003; 81015; 82570; 82945; 82962; 83615; 83735; 83880; 84156; 84157; 84300; 85014; 85025; 85027; 87015; 87070; 87086; 87102; 87116; 87205; 87206; 88112; 88341; 88342; 89051; 93005; 93306; 93321; 93325; 99285; C1894; J1160

== ENCOUNTER → 2023-12-12 16:50 | Outpatient (REF) | payer MEDICARE, OTHER, SELFPAY | LOC: RCS 16:50 | PROVIDERS: ATTENDING PHYSICIAN Internal Medicine Cardiovascular Disease; FAMILY PHYSICIAN Family Medicine | DX: I31.39 Other pericardial effusion (noninflammatory) (principal); R94.31 Abnormal electrocardiogram [ECG] [EKG]; E11.9 Type 2 diabetes mellitus without complications; I10 Essential (primary) hypertension; Z79.4 Long term (current) use of insulin; E78.2 Mixed hyperlipidemia; R06.09 Other forms of dyspnea; R00.2 Palpitations | CPT/HCPCS: 93306 ==

== ENCOUNTER → 2023-12-24 09:05 | Outpatient (REF) | payer MEDICARE, OTHER, SELFPAY | LOC: DHCBC HW 09:05 | PROVIDERS: ATTENDING PHYSICIAN Internal Medicine Cardiovascular Disease; FAMILY PHYSICIAN Family Medicine | DX: I10 Essential (primary) hypertension (principal); E78.2 Mixed hyperlipidemia; R00.2 Palpitations; I31.39 Other pericardial effusion (noninflammatory) | CPT/HCPCS: 93308 ==

== ENCOUNTER 2024-01-02 19:58 | Inpatient (IN) | payer MEDICARE, OTHER, SELFPAY ==
[2024-01-02] VITALS (7 sets, daily range): BP systolic 105–176; BP diastolic 64–89; BMI 33.5
[2024-01-02 15:48] LABS: % Basophils 0.4 % (0-2); % Immature Granulocytes 0.3 % (0-0.5); % Monocytes 6.7 % (1.7-9.3); % Neutrophils 84.6 % (42.2-75.2); Absolute Lymphocytes 0.6 10^3/uL (1.2-3.4); Absolute Monocytes 0.5 10^3/uL (0.1-0.6); Absolute Neutrophils 6.3 10^3/uL (1.4-6.5); Hematocrit 38.9 % (39.0-52.0); Hemoglobin 13.4 g/dL (13.0-18.0); Mean Corp Hgb Conc. 34.4 g/dL (33.0-37.0); Mean Corpuscular Hgb 28.7 pg (27.0-31.0); Mean Corpuscular Volume 83.3 fL (80.0-94.0); Mean Platelet Volume 9.8 fL (7.4-10.4); Nucleated Red Blood Cells % 0 % (-); Platelet Count 198 10^3/uL (130-400); Red Blood Cell Count 4.67 10^6/uL (4.70-6.10); Red Cell Dist. Width 15.2 % (11.5-14.5); White Blood Cell Count 7.4 10^3/uL (4.8-10.8)
[2024-01-02 16:28] LABS: ALT (SGPT) 25 U/L (0-50); AST (SGOT) 26 U/L (17-59); Albumin 4.1 g/dl (3.5-5.0); Alkaline Phosphatase 79 U/L (38-126); Blood Urea Nitrogen 18 mg/dl (9-20); Calcium 9.5 mg/dl (8.4-10.2); Carbon Dioxide 27 mmol/L (22-30); Chloride 102 mmol/L (98-107); Glucose 230 mg/dl (70-99); Potassium 3.9 mmol/L (3.5-5.1); Sodium 138 mmol/L (135-145); Total Bilirubin 1.2 mg/dl (0.2-1.3); Total Protein 6.6 g/dl (6.3-8.2); eGFR > 60.00
--- NOTE | 2024-01-02 18:23 | HPS.HSE ---
Family Physician
-
Family Physician:
Chief Complaint
-
right eye fogginess
History of Present Illness
73 year old with PMH for type 2 Dm, HTN, HLD, atrial fib, kidney transplant presented to us with right eye fogginess since the weekend. he went to director of financial aid on Sunday and he saw retinal specialist and noted to have Central retinal artery
occlusion. he was sent in to ER. patient still with blurry vision. denied BURTON, dizzy or syncopal episode. denied fever, chills, chest pain, sob. denied abdominal pain, n,v, d. denied dysuria or hematuria.
CT head negative. admitting for further management.
Medical History
Past Medical History
Past Medical History: Reports Other
Additional Past Medical History:
htn
hld
pericardial effusion
kidney transplant
type 2 Dm
Past Surgical History: Reports None
Social History
Tobacco: Non-smoker
Alcohol: None
Drug: None
Family History
Family History: Not pertinent
Allergies / Home Medications
Allergies reflects when Allergies were last updated in [facility].
Home Medications with original date entered in [facility]
Allergy/Medication List:
Allergies
Allergy/AdvReac Type Severity Reaction Status Date / Time
epinephrine [Epinephrine] Allergy passed out Verified 01/02/24 14:56
ibuprofen [From Advil] Allergy Kidney Verified 01/02/24 14:56
transplant
Home Medications
prednisone 5 mg tablet 5 mg PO DAILY Anti-Inflammatory 09/13/20
rosuvastatin 5 mg tablet 5 mg PO HS High cholesterol 09/28/21
magnesium chloride 71.5 mg (magnesium chloride) tablet,delayed release (Slow-Mag) 143 mg PO BID Electrolyte Repletion 11/16/23
acetaminophen 500 mg tablet (Tylenol Extra Strength) 1,000 mg PO Q6HPRN PRN mild pain 11/18/23
cholecalciferol (vitamin D3) 50 mcg (2,000 unit) capsule 50 mcg PO DAILY@0900 Supplement 11/18/23
cyclosporine 25 mg capsule 75 mg PO DAILY Transplant 11/18/23
insulin glargine 100 unit/mL (3 mL) subcutaneous pen (Lantus Solostar U-100 Insulin) 25 unit SC BID Diabetes 11/18/23
tirzepatide 5 mg/0.5 mL subcutaneous pen injector (Mounjaro) 5 mg SC TU Diabetes 11/27/23
amiodarone 200 mg tablet 200 mg PO DAILY #30 tabs 12/05/23
diltiazem HCl 180 mg capsule,extended release 24 hr 360 mg PO DAILY #30 caps 12/05/23
furosemide 20 mg tablet 20 mg PO DAILY PRN weight gain > 2 lbs in 24 hour #30 tabs 12/05/23
metoprolol succinate 100 mg tablet,extended release 24 hr 100 mg PO DAILY #30 tabs 12/05/23
cyclosporine 25 mg capsule 50 mg PO HS 01/02/24
dabigatran etexilate 150 mg capsule 150 mg PO BID 01/02/24
potassium chloride 20 mEq tablet,extended release(part/cryst) (Klor-Con M) 20 meq PO DAILY 01/02/24
tadalafil 5 mg tablet (Cialis) 5 mg PO DAILY 01/02/24
Review of Systems
-
Constitutional: Reports No Symptoms
EENT: Reports Other (right eye blurry vision)
Respiratory: Reports No Symptoms
Cardiac: Reports No Symptoms
Abdomen/GI: Reports No Symptoms
: Reports No Symptoms
Musculoskeletal: Reports No Symptoms
Skin: Reports No Symptoms
Neurological: Reports No Symptoms
Endocrine: Reports No Symptoms
Hematologic/Lymphatic: Reports No Symptoms
Psych: Reports No Symptoms
Physical Exam
Vital Signs
Vital Signs
Temp Pulse Resp BP Pulse Ox
98.0 F 66 18 176/82 98
01/02/24 14:53 01/02/24 14:53 01/02/24 14:53 01/02/24 14:53 01/02/24 14:53
Physical Exam
General: Well Developed, Well Nourished and No Apparent Distress
HEENT: NormoCephalic, Moist mucous membranes and Atraumatic
Respiratory: Clear
Cardiac: S1/S2 and Regular Rhythm; No Murmur or Rub
GI: Soft, Non Tender, Non Distended and Normal Bowel Sounds; No Organomegaly
Rectal: Deferred by Provider
Musculoskeletal: No Clubbing, No Cyanosis and No Edema
Skin: No Rash
Neuro: AO x 3 and Nonfocal/grossly intact
Psych: Calm
Laboratory Results
-
01/02/24 15:40
01/02/24 15:40
Laboratory Results
Total Bilirubin 1.2 mg/dl (0.2-1.3) 01/02/24 15:40
AST 26 U/L (17-59) 01/02/24 15:40
ALT 25 U/L (0-50) 01/02/24 15:40
Alkaline Phosphatase 79 U/L (38-126) 01/02/24 15:40
Data Reviewed
-
CT Scan: Report Reviewed by me
Lab Data: Labs Reviewed by me
Impression/Plan
-
# Central retinal artery occlusion rule out acute CVA
-Head CT with No acute intracranial abnormality noted.
-Obtain carotid US
-MRI of brain
-Pradaxa continued
-statin
-neuro consult
# History of pericardial effusion
-s/p pericardiocentesis 11/28/23
#Paroxysmal atrial fibrillation with RVR
-s/p BRITTANY/CV 11/23/23
-continue Toprol-XL, Diltiazem
-on pradaxa
#Essential hypertension: Continue metoprolol/Diltiazem
#hxt of kidney transplant
-cyclosporine continued
-prednisone continued
-cyclosporine level in am
#DM2 with hyperglycemia
- cont Lantus/SSI/AccuCheck
-carb controlled diet
#Hyperlipidemia: Continue statin
#Obesity due to excess calories: outpatient weight loss
#FULL/SCDs
--- NOTE | 2024-01-02 18:55 | EDRN ---
hospitalist currently at the pts bedside, this RN made the hospitalist aware that pupils are 3 equal and slow to light, the pt reports blurred vision in the right eye
--- NOTE | 2024-01-02 18:58 | W.PN.UPDATE ---
Update Note
Progress Note Update
Seen and examined by me independently in collaboration with the nurse practitioner Chris.
Past medical history/social history/medication/allergies reviewed.
Lab data and imaging data reviewed.
71-year-old gentleman with a history of renal transplant on immunosuppressive agents, diabetes, hypertension, paroxysmal atrial fibrillation on Pradaxa, pericardial effusion with pericardial tamponade needing drainage recently presents with right
eye symptoms.
Over the weekend he had an upper eye field of vision defect like a curtain coming down. He thought he had a retinal tear and got an appointment with the production dispatcher who referred him to retinal specialist. He was seen by retinal specialist
today and they were concerned about central retinal artery occlusion and sent to the ER for stroke workup.
His eye vision is much improved. He is able to read but it is blurry in the right eye. No headache. No speech disturbance. No limb weakness. But he was not feeling steady on his feet over the weekend. No prior stroke.
No carotid bruit. Heart sounds regular. EKG in sinus rhythm. Nonfocal neurologically.
He is compliant with his Pradaxa.
Admit to telemetry. Consult neurology. Obtain an MRI of the brain. Carotid ultrasounds requested in the ER which I would follow. Discussed with neurology who was okay for him to continue Pradaxa but hold on aspirin or Plavix for now. Check
lipid profile. Continue with the statin.
Continue with his immunosuppressive agents-dose of cyclosporine decreased recently due to elevated serum levels.
[2024-01-02 19:14] LABS: Erythrocyte Sed Rate 15 mm/hour (0-20)
--- NOTE | 2024-01-02 19:41 | ED.CVA ---
History of Present Illness
General
Chief Complaint: CVA/TIA Symptoms
Source: patient and physician (Discussed with referring deckhand oyster dredge)
Exam Limitations: none
Time Seen by Provider: 01/02/24 17:57
Nursing documentation reviewed up to this point in time: agreed with
Onset of Stroke Symptoms
Onset of symptoms known: Yes
Date of onset of symptoms: 12/29/23
Travel History
Have you had any contact with someone who has COVID-19?: No
Do you have any symptoms of coronavirus? Fever > 100 degrees, chills, cough, shortness of breath, sore throat, loss of taste or smell, muscle aches, or headache?: No
History of Present Illness
History of Present Illness:
73-year-old male with a past medical history of hypertension, hyperlipidemia, atrial fibrillation (on Pradaxa), diabetes, ESRD status post renal transplant in 2019 who presents to the emergency department sent in by his deckhand oyster dredge with central
retinal artery occlusion. Patient says that Sunday evening into early Sunday morning he noticed that he had some vision loss in the right eye 'like a shade' across the top portion of his vision. He says that he saw his eye doctor on Sunday and
was told that it did not appear that he had a retinal detachment but they referred him to a retinal specialist today for further assessment. He says that today he saw the retinal specialist (Dr. Cervantes) who found findings concerning for central
retinal artery occlusion and referred patient to the emergency room�we received a call had from deckhand oyster dredge I spoke with him directly he requested workup for CVA and also potentially GCA as he is on no plaques on exam. Patient says that his
vision has improved although he still has some blurry vision in the right eye. He denies any other complaints including headache, neck pain, weakness or numbness in extremities, slurred speech or difficulty speaking. He has been compliant with his
Pradaxa.
Past History
Past History
ED Past Medical History: HTN, IDDM and Renal failure
ED Past Surgical History: Other (Renal transplant)
Social History
Tobacco: Non-smoker
Alcohol: Occasional
Drug: None
Personal:
Living: with family
Employment: Employed
Family History
Family History: Other
Review of Systems
Review of Systems
All Other Systems: ROS reviewed and negative except as documented in HPI and ROS
Constitutional: Denies fever or chills
EENT: Reports other (Visual loss/disturbance); Denies sore throat or runny nose
Respiratory: Denies cough or trouble breathing
Cardiac: Denies chest pain or palpitations
ABD/GI: Denies abdominal pain, nausea or vomiting
: Denies flank pain
Musculoskeletal: Denies neck pain or back pain
Neurological: Denies headache, weakness or numbness
Phy Exam
Physical Exam
Physical Exam:
General: Awake, alert, oriented x3; no acute distress
Head: Normocephalic, atraumatic
Eyes: Conjunctiva normal, pupils 6 mm and sluggishly reactive to light bilaterally; patient has some strabismus in the left eye which he says is chronic extraocular movements are intact
Throat: Airway intact, handling secretions
Neck: Trachea midline, supple without meningismus
Lungs: Clear to auscultation bilaterally, no wheezing, rales, rhonchi
Heart: Regular rate and rhythm, no murmurs, gallops, or rubs
Abd: Soft, non distended, nontender
Neuro: Cranial nerves intact, speech fluid with no dysarthria or aphasia, no limb ataxia, motor and sensory function intact proximally and distally in all extremities
Skin: no rash
Extremities: No edema in extremities, equal pulses in all extremities
Scores
NIH Stroke Score
Level of Consciousness: 0 - Alert
LOC Questions: 0-Answers both correctly
LOC Commands: 0-Performs both correctly
Best Horizontal Gaze: 0-Normal
Visual Vieyra: 0=Normal, no visual loss
Facial Palsy: 0=Normal, symmetrical
Motor - Right Arm: 0=No drift 10 seconds
Motor - Left Arm: 0=No drift 10 seconds
Motor - Right Le-No drift 5 seconds
Motor - Left Le-No drift 5 seconds
Limb Ataxia: 0-Absent
Sensation: 0-Normal
Best Language: 0-No aphasia
Dysarthria: 0-Normal
Extinction and Inattention: 0-No abnormality
Total Score:: 0
Thrombolytic Contraindication
Inclusion and Exclusion criteria reviewed: Yes
Reasons for NON-Tx with Thrombolytics ABSOLUTE Exclusions: Greater than 4.5 hrs from onset of sxs
Heart Failure Risk
Heart Failure Risk Score: Not Applicable
Heart Score for Chest Pain Patients
STEMI patient?: Not applicable
Withdrawal Assessment of Alcohol
Withdrawal Assessment Completed?: Not applicable
Course
Orders/Labs/Results
Orders:
Orders
01/02/24 14:57
Electrocardiogram (*1) Urgent
Reason for Study: TIA/Stroke
CT Head W/o Iv Contrast Urgent
Comment: retinal occulsion per eye dr
Reason For Exam: possible cva
EKG- Treatment ONCE
01/02/24 15:40
Complete Blood Count/With Diff Urgent
Comprehensive Metabolic Panel Urgent
01/02/24 18:03
NEUROLOGY CONSULT Urgent
Consulting Provider: Duarte Walsh
Was physician already notified: Yes
01/02/24 18:17
ESR [Erythrocyte Sed Rate] Urgent
01/02/24 18:19
Carotid US [US Cerebrovascular] Urgent
Comment:
Reason For Exam: CRAO
01/02/24 18:41
Admit/Transfer Patient As Directed
Co-Sign Provider:
Level of Care: Inpatient admission
Assign to:: Telemetry
Physician / Group: lasha
Diagnosis: CVA
Reason for Telemetry: CVA/TIA
Date to Stop Telemetry: 01/05/24
Time to Stop Telemetry: 11:00
Reason for Hospitalization: CVA
Expected length of stay greater than two midnights?: Yes
ELOS- Estimated Length of Stay in days: 3
I certify the patient meets the requirements for IP care: Yes
01/02/24 18:43
Code Status As Directed
Resuscitation Status: Full Code
01/05/24 11:00
DC Protocol for Telemetry ONCE
Abnormal Lab Results
01/02/24
15:40
RBC 4.67 L 10^6/uL
(4.70-6.10)
Hct 38.9 L %
(39.0-52.0)
RDW 15.2 H %
(11.5-14.5)
Absolute Lymphs (auto) 0.6 L 10^3/uL
(1.2-3.4)
Neutrophils % 84.6 H %
(42.2-75.2)
Lymphocytes % 8.0 L %
(20.5-51.1)
Glucose 230 H mg/dl
(70-99)
01/02/24 15:40
01/02/24 15:40
Vital Signs
Initial and Last Documented VS:
Initial Vital Signs
Temp Pulse Resp BP Pulse Ox
36.7 C 66 18 176/82 98
01/02/24 14:53 01/02/24 14:53 01/02/24 14:53 01/02/24 14:53 01/02/24 14:53
Last Documented Vital Signs
Temp Pulse Resp BP Pulse Ox
36.7 C 57 18 105/89 100
01/02/24 14:53 01/02/24 19:00 01/02/24 14:53 01/02/24 19:00 01/02/24 19:00
MDM/Problems Addressed
Differential Diagnosis Includes:
Central retinal artery occlusion
MDM/Problems Addressed:
73-year-old male presents to the emergency room referred by retinal specialist for central retinal artery occlusion discovered on exam today. He had some vision loss on Sunday that has generally improved but not recovered to normal�he still has
some mild blurry vision in the right eye. No other neurologic complaints. Hypertensive but otherwise normal vitals. Exam as above. Plan to place an IV check labs including CBC and CMP will check CT head and EKG. Will check an ESR. Anticipate
admission pending initial ED workup.
Labs reviewed: CBC unremarkable, CMP shows random glucose 230 no signs of DKA. CT head negative for any acute pathology. Case discussed with neurology will plan for carotid imaging admit for continued workup. Case discussed with hospitalist for
admission.
Chronic conditions affecting care:
Hypertension, hyperlipidemia, atrial fibrillation, diabetes�all place him at higher risk for stroke
Acute Exacerbation and/or Progression of Chronic Illness:
Acutely hypertensive improved without intervention continue to monitor but allow for permissive hypertension for now in the setting of stroke equivalent
Acute Exacerbation and/or Progression of Chronic Illness: HTN
*Radiology
Radiology exam reviewed: radiology read reviewed
*Pulse Oximetry
Patient hypoxic: no
*EKG
Interpreted by ED Provider?: Yes
Heart Rate: 60
Rate: normal
Rhythm: sinus
[place]: normal axis
Interval: long QT
QRS Pattern: normal QRS
Ischemia: non-specific ST changes
*Critical Care Note
Total Time (30-74mins, 75-104mins- exclusive of procedures): Not Applicable
Data Reviewed
Review of Other/Old Records Reveals: Labs and Records
Source: patient and physician
Further Testing Considered But Not Given:
Considered CTA of the head and neck but given his renal transplant and no other abnormal neurologic findings on exam opted instead for carotid ultrasound
Patient Management
Discussion with other providers: Hospitalist (Discussed with hospitalist) and Geothermal Electrical Engineer (Discussed with neurology)
Escalation/DeEscalation of care consider admission/obs:
Admission indicated
ED Attending Note
-
Portions of this chart may have been created with voice recognition software.� Occasional wrong word or��sound alike� substitutions may have occurred due to the inherent limitations of voice recognition software.
Discharge Plan
Departure
Patient Disposition: Admit
Date of Disposition: 01/02/24
Time of Disposition: 18:19
Admit to doctor: Lasha
Presentation/result/management discussed w/ accepting MD/DO: Hospitalist
Discharge Problem:
Central retinal artery occlusion
Prescriptions:
No Action
prednisone 5 MG tablet
5 mg PO DAILY
rosuvastatin 5 MG tablet
5 mg PO HS
Slow-Mag 71.5 mg Tablet,Delayed Release (Dr/Ec)
143 mg PO BID
cyclosporine 25 mg Capsule
75 mg PO DAILY
Patient Comments:
11/18/2023, pt. gets filled at [facility] in [place].
acetaminophen [Tylenol Extra Strength] 500 mg Tablet
1,000 mg PO Q6HPRN PRN (Reason: mild pain)
insulin glargine [Lantus Solostar U-100 Insulin] 100 unit/mL (3 mL) Insulin Pen
25 unit SC BID
cholecalciferol (vitamin D3) 50 mcg (2,000 unit) Capsule
50 mcg PO DAILY@0900
Mounjaro 5 mg/0.5 mL Pen Injector
5 mg SC TU
diltiazem HCl 180 mg Capsule,Extended Release 24hr
360 mg PO DAILY Qty: 30 0RF
metoprolol succinate 100 mg Tablet Extended Release 24 Hr
100 mg PO DAILY Qty: 30 0RF
furosemide 20 mg Tablet
20 mg PO DAILY PRN (Reason: weight gain > 2 lbs in 24 hour) Qty: 30 0RF
amiodarone 200 mg tablet
200 mg PO DAILY Qty: 30 0RF
cyclosporine 25 mg Capsule
50 mg PO HS
potassium chloride [Klor-Con M20] 20 mEq tablet,ER particles/crystals
20 meq PO DAILY
tadalafil [Cialis] 5 mg Tablet
5 mg PO DAILY
dabigatran etexilate 150 mg capsule
150 mg PO BID
Interventions
Interventions:
*Risk Screen - Suicide Last Done: 01/02/24 18:17
*General Assessment Last Done: 01/02/24 18:17
*Neglect/Abuse Screening Last Done: 01/02/24 18:17
ED- Fall Risk Assessment Last Done: 01/02/24 18:17
*ED COVID-19 Vaccine History Last Done: 01/02/24 14:53
ED- Pulmonary Assessment Last Done: 01/02/24 18:17
ED- Neurological Assessment Last Done: 01/02/24 18:17
ED- Cardiac Assessment Last Done: 01/02/24 18:17
ED Swallowing Screen Last Done: 01/02/24 18:17
[2024-01-02] MEDS: PRADAXA 150 MG PO (23:17)
[2024-01-02] MEDS: MAG-TAB SR 168 MG PO (23:19)
[2024-01-02] MEDS: CRESTOR 5 MG PO (23:19)
[2024-01-02] MEDS: NEORAL 50 MG PO (23:20)
[2024-01-02 23:25] LABS: Glucose - Point of Care 181 mg/dl (70-99)
[2024-01-02] MEDS: LANTUS 0.25 UNITS SC (23:25)
[2024-01-03] VITALS (21 sets, daily range): BP systolic 132–189; BP diastolic 63–95; PULSE 60–62; O2SAT 100; BMI 32.4
[2024-01-03 07:02] LABS: Hematocrit 37.1 % (39.0-52.0); Mean Corpuscular Hgb 28.5 pg (27.0-31.0); Mean Corpuscular Volume 81.4 fL (80.0-94.0); Mean Platelet Volume 9.8 fL (7.4-10.4); Platelet Count 181 10^3/uL (130-400); Red Blood Cell Count 4.56 10^6/uL (4.70-6.10)
[2024-01-03 07:20] LABS: Glucose - Point of Care 97 mg/dl (70-99)
[2024-01-03 07:30] LABS: Blood Urea Nitrogen 12 mg/dl (9-20); Carbon Dioxide 27 mmol/L (22-30); Chloride 102 mmol/L (98-107); Estimated Creatinine Clearance 106 ml/min; Glucose 102 mg/dl (70-99); HDL Cholesterol 49 mg/dl; LDL Cholesterol, Calculated 66 mg/dl; Potassium 2.7 mmol/L (3.5-5.1); Sodium 139 mmol/L (135-145); Total Cholesterol 145 mg/dl (50-199); Triglyceride 153 mg/dl (10-149); Very Low Density Lipoprotein 30 mg/dl (0-30); eGFR > 60.00
[2024-01-03] MEDS: NOVOLOG FLEXPEN-LOW RESISTANCE SC ×2 (07:50→15:13)
--- NOTE | 2024-01-03 08:00 | CON.NEURO4 ---
Addendum entered and electronically signed by Irineo Quintero MD 01/03/24 12:40:
I saw and evaluated the patient, reviewed the note by Elvia Gallardo.
73 year old right handed man with history of renal transplant, pericarditis, atrial fibrillation, diabetes presenting to hospital because of right eye vision changes that started this past Sunday. They were painless and had an intermittent
curtain coming down quality and an parts coordinator referred them to the ED. No unusual headaches, no head or neck trauma. No symptoms of left face arm or leg paresthesia or weakness, confusion or speech difficulty. Has been on Pradaxa. No
history of stroke previously. He has been having some right eye ptosis for about the past year, no double vision or dysphagia.
Neurologic examination shows right eye able to read 20/30 to near card, pupils symmetric, right eye ptosis seen, EOM normal, smile symmetric, no dysarthria, normal motor and coordination in the arms and legs. NIH of 0.
MRI reviewed with about 5 areas of scattered acute infarcts in the right frontal and parital lobes.
Carotid ultrasound final read pending, on my review the velocities and ratio of the proximal right ICA support greater than 70% stenosis of the right ICA.
Assessment: High suspicion for a right sided symptomatic carotid artery producing branch retinal artery occlusion to the right eye and largely silent right MCA ischemic strokes.
Recommendations
-Hold Pradaxa
-Give aspirin 325 mg once now and continue on 81 mg daily
-Neurologic checks and NIH scales
-Consult vascular surgery,
-Discussed with hospitalist team need for CTA of the head and neck, given CKD and renal transplant will consult nephrology about any need for hydration or other recommendations given need for the study for evaluation for suspected symptomatic right
carotid artery stenosis
-Patients vision symptoms started Thursday 12/28, is acceptable for potential carotid intervention as early as tomorrow 01/03, but will also be acceptable for surgery early next week
-Check TTE
-Goal normotension and normoglycemia
-Discussed with patient and his about thoughts on suspected carotid stenosis as cause of strokes and next steps
Will follow
Original Note:
Documented by User: Elvia Gallardo NP 01/03/24 12:08
Consultation - Neurology 4
-
CONSULTING PHYSICIAN: Shanice Quintero MD
REFERRING PHYSICIAN: Hospitalists/CHEYENNE Arnett
DICTATED BY: CHEYENNE De Anda
DATE/TIME OF REQUEST: 01/02/24
DATE/TIME OF CONSULTATION: 01/03/24
Reason for Consultation: Right eye vision loss
History of Present Illness:
This is a 73-year-old right-handed male who has presented to the hospital on 01/02/24 with report of right eye vision loss. Patient reports that five days ago on 12/29/23 in the evening his right eye suddenly appeared to have a shade pulled down on the
upper 1/5 of his visual field. He describes the 'shade' as a maldonado fog/cloud appearance. The following day on 12/30/23 the shade was coming and going throughout the day. On 12/31/23, he called his parts coordinator who had him come in for an urgent
evaluation. They told him they saw a 'freckle' in the back of his right eye and referred him to a retina specialist. The retina told him he thought he had a stroke to the eye and referred him to the ER for evaluation. CT head was obtained in the ER
and is negative for any acute abnormalities. He reports that his eyes were dilated frequently for the past two days which altered his vision, but today (01/03/24), he thinks his vision appears back to normal. He denies any headache, dizziness,
speech/swallow difficulty, nausea, numbness, weakness, chest pain, palpitations, and shortness of breath. He reports feeling slightly unsteady with ambulation. He endorses right eyelid drooping that started about 1-2 years ago, he was planning to
have cosmetic surgery to correct this. He denies any double vision. He does report intermittent strabismus in the left eye only that has been ongoing for several years. He denies any diagnosed eye conditions, he wears glasses for reading only. He
recently had a pericardial effusion and was diagnosed with Afib. He was started on Pradaxa for Afib about two weeks ago. He denies missing any doses of Pradaxa. Since his recent hospitalization he has noticed some bilateral leg fatigue but he denies
any difficultly walking up a flight of stairs. He denies any history of TIA, stroke, or events like this in the past.
Past Medical History: Recent diagnosis Afib (Pradaxa), hemorrhagic pericardial effusion, HTN, HLD, ESRD, IgG gammopathy, corticosteroid myopathy, Kalyani's syndrome, NIDDM, DKA, anemia, recurrent squamous cell carcinoma, erectile dysfunction
Surgical History: Living related renal transplant 07/2020, pericardiocentesis 10/2022, LUE AV Fistula, b/l cataract removal, cystoscopy with lithotripsy, renal biopsy, bone marrow biopsy, ureteral stent, evacuation of subcapsular hematoma, multiple
Mohs procedures, cervical epidural injections
Family History: Mother- scleroderma.
Social History: Former tobacco. Occasional alcohol. Denies illicit drug use. 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
Allergies: Epinephrine, ibuprofen.
Home Medications: See below.
Review of Symptoms:
Patient denies any fever, headache, chest pain, shortness of breath, GI or symptoms.
�Per the HPI.�All systems are reviewed negative except above.
Physical Exam:
The patient is afebrile, abdomen is nondistended, breathing is unlabored, skin is warm and dry, no edema.
NIH Stroke Scale:
I performed the NIH stroke scale on the patient on 01/03/24 at 0830. The patient scored 2 points on the NIH stroke scale assessment, which were assigned as follows: See below.
Neurologic Examination:
The patient is awake, alert and oriented x 3. He is able to follow commands and answer questions appropriately. There is no aphasia or dysarthria. On cranial nerve assessment, pupils are 1.5 mm bilateral, round and reactive to light and
accommodation. Visual vieyra are reduced in the right eye upper right and left quadrants. Extraocular movements are intact. There is a slight right eye ptosis. Facial sensations are intact and bilaterally symmetrical. Hearing is diminished
bilaterally to normal conversation volume. Tongue palate and uvula are midline. Sternocleidomastoid strengths are full bilaterally. Motor strengths are 5/5 bilateral upper and lower extremities on medical research Tribe scale. There is no drift or
involuntary movement noted. Deep tendon reflexes are 1+ bilateral upper and lower extremities and Babinski is absent bilaterally. Sensations of temperature and vibration are moderately reduced in distal bilateral lower extremities. There was no
extinction noted on double simultaneous stimulation. Coordination is intact by finger to nose bilaterally.
Lab Results: See below.
Neuro Imaging:
1. CT Head 01/02/24: No acute intracranial abnormality noted.
2. MRI Brain 01/03/24: There are multiple small foci of acute to subacute infarction involving the right cerebral hemisphere. Punctate focus of decreased T2 gradient-echo signal associated with the small focus of right occipital lobe infarction, which
is probably a tiny focus of punctate hemorrhage, likely not macroscopic. No evidence of mass effect or midline shift.
3. Carotid Ultrasound: pending
Differentials for the patient's presentation include:
1. Concern for severe R ICA stenosis producing a right eye central retinal artery occlusion (CRAO) and right hemisphere ischemic stroke.
2. Right eye ptosis possibly due to chronic R ICA stenosis; low concern for Myasthenia gravis.
3. Peripheral neuropathy.
Patient has the following risk factors for their symptoms: Afib, HTN, NIDDM, HLD, age
IV Tenecteplase/IAT candidacy: Not a candidate due to outside of time window, NIHSS <6, no evidence of LVO.
Recommendations:
-Hold Pradaxa.
-Aspirin 325mg x1 now.
-Carotid ultrasound final read pending.
-Vascular surgery consultation placed.
-Goal normotension.
-LDL goal <70. LDL is 66. Ok to continue home rosuvastatin 5mg daily as LDL is at goal.
-Goal normoglycemia, hbA1c is 8.1.
-NIHSS and neurological checks per unit guidelines.
-Provide patient with a stroke education packet.
-PT/OT/ST evaluations.
-DVT prophylaxis.
-Consider acetylcholine receptor and MUSK antibody testing as an outpatient.
-Will follow pending results. Patient should also follow-up with Neurology as an outpatient in about 4 weeks, may see the [facility] or Dr. Quintero.
Discussed patient care with: Dr. Quintero, the patient
NIH Stroke Score
Subsequent NIH Scale
Date of Subsequent NIH Scale: 01/03/24
Time of Subsequent NIH Scale: 08:30
NIH Stroke Score
Level of Consciousness: 0 - Alert
LOC Questions: 0-Answers both correctly
LOC Commands: 0-Performs both correctly
Best Horizontal Gaze: 0-Normal
Visual Vieyra: 1=Partial hemianopia
Facial Palsy: 1=Minor paralysis
Motor - Right Arm: 0=No drift 10 seconds
Motor - Left Arm: 0=No drift 10 seconds
Motor - Right Le-No drift 5 seconds
Motor - Left Le-No drift 5 seconds
Limb Ataxia: 0-Absent
Sensation: 0-Normal
Best Language: 0-No aphasia
Dysarthria: 0-Normal
Extinction and Inattention: 0-No abnormality
Total Score:: 2
Modified [place] (mRS) Score
Modified [place] Scale (mRS): No significant disability. Able to carry out usual activities.
Score: 1
Vital Signs and Labs
-
Vital Signs and Labs:
Vital Signs
Temp Pulse Resp BP Pulse Ox
97.6 F 62 16 175/76 99
01/03/24 07:00 01/03/24 07:45 01/03/24 07:00 01/03/24 08:00 01/03/24 07:45
Lab Results
01/03/24 06:23
01/03/24 06:23
Sodium 139 mmol/L (135-145) 01/03/24 06:23
Potassium 2.7 mmol/L (3.5-5.1) L* D 01/03/24 06:23
BUN 12 mg/dl (9-20) 01/03/24 06:23
Glucose 102 mg/dl (70-99) H 01/03/24 06:23
Calcium 9.0 mg/dl (8.4-10.2) 01/03/24 06:23
LDL Cholesterol, Calc 66 mg/dl 01/03/24 06:23
Medications
-
Active Medications
Generic Name Dose Route Start Last Admin
Trade Name Freq PRN Reason Stop Dose Admin
Acetaminophen 650 mg 01/02/24 20:55
Acetaminophen 650 Mg Rectal Suppository RECTAL 01/30/24 20:54
Q4HPRN PRN
BURTON, mild pain, or temp >100.4F
Acetaminophen 650 mg 01/02/24 20:55
Acetaminophen 325 Mg Tablet PO 01/30/24 20:54
Q4HPRN PRN
BURTON, mild pain, or temp >100.4F
Amiodarone HCl 200 mg 01/03/24 08:00 01/03/24 09:12
Amiodarone 200 Mg Tablet PO 01/31/24 07:59 200 mg
DAILY SHAWNEE Administration
Cyclosporine 50 mg 01/02/24 22:00 01/02/24 23:20
Cyclosporine, Modified (Neoral) 25 Mg Capsule PO 01/30/24 21:59 50 mg
HS SHAWNEE Administration
Cyclosporine 75 mg 01/03/24 08:00 01/03/24 09:07
Cyclosporine, Modified (Neoral) 25 Mg Capsule PO 01/31/24 07:59 75 mg
DAILY SHAWNEE Administration
Dabigatran 150 mg 01/02/24 20:55 01/02/24 23:17
Dabigatran Etexilate (Pradaxa) 150 Mg Capsule PO 01/30/24 20:54 150 mg
BID SHAWNEE Administration
Dextrose 12.5 grams 01/02/24 20:55
Dextrose 50% (0.5 Grams/Ml) 50 Ml Syringe IV 01/30/24 20:54
[id number] PRN
hypoglycemia
Protocol
Diltiazem HCl 360 mg 01/03/24 08:00 01/03/24 09:11
Diltiazem 180 Mg Extended Release (24 H) Capsule PO 01/31/24 07:59 360 mg
DAILY SHAWNEE Administration
Glucagon 1 mg 01/02/24 20:55
Glucagon 1 Mg Vial IM 01/30/24 20:54
PRN PRN
hypoglycemia
Protocol
Insulin Glargine 25 units/ 0.25 mls @ 0 mls/hr 01/02/24 22:00 01/03/24 09:11
Device SC 01/30/24 21:59 0.25 mls
BID SHAWNEE Administration
As Directed
Insulin Aspart 0 units 01/03/24 07:30 01/03/24 07:50
Insulin Aspart Low Resistance 300 Units/3 Ml Pen.Injctr SC 01/31/24 07:29 Not Given
AC SHAWNEE
Protocol
Magnesium 168 mg 01/02/24 22:00 01/03/24 09:12
Magnesium Lactate 84 Mg Tablet PO 01/30/24 21:59 168 mg
BID SHAWNEE Administration
Metoprolol Succinate 100 mg 01/03/24 08:00 01/03/24 09:11
Metoprolol 100 Mg Extended Release Tablet PO 01/31/24 07:59 100 mg
DAILY SHAWNEE Administration
Potassium Chloride 20 meq 01/03/24 08:00 01/03/24 09:12
Potassium Chloride 20 Meq Extended Release Tablet PO 01/31/24 07:59 20 meq
DAILY SHAWNEE Administration
Potassium Chloride 40 meq 01/03/24 12:00
Potassium Chloride 20 Meq Extended Release Tablet PO 01/03/24 12:01
NOW ONE
Prednisone 5 mg 01/03/24 08:00 01/03/24 09:07
Prednisone 5 Mg Tablet PO 01/31/24 07:59 5 mg
DAILY SHAWNEE Administration
Rosuvastatin Calcium 5 mg 01/02/24 22:00 01/02/24 23:19
Rosuvastatin (Crestor) 5 Mg Tablet PO 01/30/24 21:59 5 mg
HS SHAWNEE Administration
Sodium Chloride 0 flush 01/02/24 22:00
Sodium Chloride 0.9% (Flush) Syringe IV 01/30/24 21:59
PER PROTOCOL SHAWNEE
Home Medications
Medication Instructions Recorded
prednisone 5 mg tablet 5 mg PO DAILY Anti-Inflammatory 09/13/20
rosuvastatin 5 mg tablet 5 mg PO HS High cholesterol 09/28/21
magnesium chloride 71.5 mg 143 mg PO BID Electrolyte Repletion 11/16/23
(magnesium chloride)
tablet,delayed release (Slow-Mag)
acetaminophen 500 mg tablet 1,000 mg PO Q6HPRN PRN mild pain 11/18/23
(Tylenol Extra Strength)
cholecalciferol (vitamin D3) 50 50 mcg PO DAILY@0900 Supplement 11/18/23
mcg (2,000 unit) capsule
insulin glargine 100 unit/mL (3 25 unit SC BID Diabetes 11/18/23
mL) subcutaneous pen (Lantus
Solostar U-100 Insulin)
tirzepatide 5 mg/0.5 mL 5 mg SC TU Diabetes 11/27/23
subcutaneous pen injector
(Mounjaro)
amiodarone 200 mg tablet 200 mg PO DAILY #30 tabs 12/05/23
diltiazem HCl 180 mg 360 mg PO DAILY #30 caps 12/05/23
capsule,extended release 24 hr
furosemide 20 mg tablet 20 mg PO DAILY PRN weight gain > 2 12/05/23
lbs in 24 hour #30 tabs
metoprolol succinate 100 mg 100 mg PO DAILY #30 tabs 12/05/23
tablet,extended release 24 hr
cyclosporine modified 25 mg capsule 50 mg PO HS 01/02/24
cyclosporine modified 25 mg capsule 75 mg PO DAILY 01/02/24
dabigatran etexilate 150 mg capsule 150 mg PO BID 01/02/24
potassium chloride 20 mEq 20 meq PO DAILY 01/02/24
tablet,extended
release(part/cryst) (Matt Blackburn)
tadalafil 5 mg tablet (Cialis) 5 mg PO DAILY 01/02/24

Documented by User: Irineo Quintero MD 01/03/24 12:33
NIH Stroke Score
NIH Stroke Score
Total Score:: 2
Modified [place] (mRS) Score
Score: 1
[2024-01-03 08:54] LABS: Glycohemoglobin (HgbA1c) 8.1 % (4.0-5.6)
[2024-01-03] MEDS: NEORAL 75 MG PO (09:07)
[2024-01-03] MEDS: DELTASONE 5 MG PO (09:07)
[2024-01-03] MEDS: LANTUS 0.25 UNITS SC ×2 (09:11→21:14)
[2024-01-03] MEDS: CARDIZEM CD 360 MG PO (09:11)
[2024-01-03] MEDS: TOPROL XL 100 MG PO (09:11)
[2024-01-03] MEDS: MAG-TAB SR 168 MG PO ×2 (09:12→21:14)
[2024-01-03] MEDS: KCL 20 MEQ PO (09:12)
[2024-01-03] MEDS: PACERONE 200 MG PO (09:12)
--- NOTE | 2024-01-03 09:51 | PTOTSP ---
Speech Therapy
Presentation: Patient was oriented. Patient's speech, language, and cognition appeared to be WNL during informal conversations with NETWORK ENGINEERING ADVISOR. Patient denied any communicative complaints.
Swallowing Function: NETWORK ENGINEERING ADVISOR observed patient with several bites of regular consistency solids and thin liquids in which patient appeared to tolerate as he did not exhibit any overt clinical s/sx of aspiration or difficulty with mastication/
manipulation. Patient denied any dysphagia complaints.
NETWORK ENGINEERING ADVISOR observed RN administer medications whole with thin liquids in which patient appeared to tolerate.
Recommendations:
1) Regular consistency solids and thi liquids
2) Aspiration precautions
3) Medications whole with thin liquids
Plan: NETWORK ENGINEERING ADVISOR will sign off at this time; please re-consult if indicated.
[2024-01-03 11:33] LABS: Glucose - Point of Care 173 mg/dl (70-99)
--- NOTE | 2024-01-03 11:42 | W.PN.HOSP.TC ---
Today's Communication/Plan
-
Follow MRI imaging of the brain
Await neurology input
Assessment / Plan
Assessment / Plan
# Acute right upper visual field loss which is recovering-onset over the weekend
Diagnosed to have Central retinal artery occlusion rule by the retinal specialist-ongoing workup to rule out acute CVA
-Head CT with No acute intracranial abnormality noted.
-carotid US report pending
-MRI of brain/MRA of the head-pending
-Pradaxa continued
-statin
-neuro consult
# History of pericardial effusion
-s/p pericardiocentesis� 11/28/23
#Paroxysmal atrial fibrillation with RVR
-s/p BRITTANY/CV 11/23/23
-continue Toprol-XL, Diltiazem
-on pradaxa
#Essential hypertension: Continue metoprolol/Diltiazem adjust as needed.
#hxt of kidney transplant
-cyclosporine continued-dose decreased recently based on levels
-prednisone continued
#DM2 with hyperglycemia
- cont Lantus/SSI/AccuCheck
-carb controlled diet
#Hyperlipidemia: Continue statin
#Obesity due to excess calories: outpatient weight loss
#FULL/SCDs
DW at bedside
Anticipated Discharge: Within 24 hours
Subjective/Interval History
-
Date of Service: January 03, 2024
Patient says right eye is much improved ever since his initial onset of symptoms over the weekend.
He has some blurriness and right upper eyelid visual field but able to read.
No new symptoms.
Denies any headache.
Denies any jaw claudication or scalp tenderness.
Objective Data
-
Labs:
Laboratory Results
01/03/24
06:23
WBC 6.0
Hgb 13.0
Hct 37.1 L
Plt Count 181
Sodium 139
Potassium 2.7 L* D
Chloride 102
Carbon Dioxide 27
BUN 12
Creatinine 0.7
Glucose 102 H
Calcium 9.0
Vital Signs:
Vital Signs
Temp Pulse Resp BP Pulse Ox
97.6 F 62 16 175/76 99
01/03/24 07:00 01/03/24 07:45 01/03/24 07:00 01/03/24 08:00 01/03/24 07:45
I&O
01/02/24 01/03/24 01/04/24
06:59 06:59 06:59
Output Total 700 / 700
Balance -700 / -700
Review of Systems
-
Constitutional: Denies Fever or Chills
Respiratory: Denies Cough or Trouble Breathing
Cardiac: Denies Chest Pain or Palpitations
Neuro: Denies Dizzy, Headache, Weakness or Numbness
Physical Exam
-
General: No Apparent Distress
HEENT: Moist Mucous Membranes
Respiratory: Clear to Auscultation
Cardiac: Regular Rhythm and S1/S2
GI: Soft
Neuro: AO x 3 and No Motor Deficits; Negative Slurred Speech or Facial Droop
Psych: Calm; Negative Confused
Data Reviewed
-
Labs: Labs Reviewed by me
[2024-01-03] MEDS: ASPIRIN 325 MG PO (12:40)
[2024-01-03] MEDS: KCL 40 MEQ PO (12:41)
[2024-01-03] MEDS: PRADAXA PO (12:48)
--- NOTE | 2024-01-03 13:57 | W.CON.NEPH ---
Consultation
-
Date/Time Consultation Requested: 01/03/24: 1100AM
Date/Time Consultation Performed: 01/03/24 : 1230 pm
Requesting Provider: [place]
Performing Provider: Jackie
Reason for Consultation: Renal Transplant
Medical History
-
Chief Complaint: Renal tranplant
History of Present Illness:
The patient is a 73-year-old male with a past medical history of living related renal transplant performed in 2019. He maintains a normal GFR with creatinine of 0.9 noted on 12/05/2023. he is currently maintained on cyclosporine and prednisone for
his immunosuppression. He is chronically anticoagulated with dabigatran and rate controlled on amiodarone and metoprolol for his A-fib. He is a diabetic and maintained on insulin and oral medications. He presented to ER last evening with right
eye fogginess since the weekend. He had seen his guide setter on Sunday and was then seen [facility] retinal specialist and noted to have� Central retinal artery occlusion. He was sent in to ER. He currently denies BURTON, dizzy or syncopal episode.
denied fever, chills, chest pain, sob. denied abdominal pain, n,v, d. denied dysuria or hematuria.
Past Medical History
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
pericardial effusion
Afib s/p CV 11/17
FSGS
IgG Gammopathy
T2DM
Anemia
HTN
BK viremia (off MMF)
Nephrolithiasis
Obesity
VIKASH
recurrent skin squamous cell cancer
Left radiocephalic AV fistula creation in 2019
�Cystoscopy with retrograde study and lithotripsy.
Remote tonsillectomy.
Bone marrow biopsy 2018.
Renal biopsy 11/2018.
Right chest wall venous port. Left radiocephalic AV fistula 2019.
Living related kidney transplant 08/26/2020.
Redo ureteral anastomosis with stent placement and stent removal.
.Evacuation of subcapsular hematoma 12/2020.
Cervical epidural injection 11/2020.
Multiple Mohs procedure.
Social History
Tobacco: Former Smoker
Alcohol: None
Drug: None
Family History
Brother with history of CKD
Allergies / Home Medications
Allergy/AdvReac Type Severity Reaction Status Date / Time
epinephrine [Epinephrine] Allergy passed out Verified 01/02/24 14:56
ibuprofen [From Advil] Allergy Kidney Verified 01/02/24 14:56
transplant
Medication Instructions Recorded Confirmed Type
prednisone 5 mg tablet 5 mg PO DAILY Anti-Inflammatory 09/13/20 01/02/24 History
rosuvastatin 5 mg tablet 5 mg PO HS High cholesterol 09/28/21 01/02/24 History
magnesium chloride 71.5 mg 143 mg PO BID Electrolyte Repletion 11/16/23 01/02/24 History
(magnesium chloride)
tablet,delayed release (Slow-Mag)
acetaminophen 500 mg tablet 1,000 mg PO Q6HPRN PRN mild pain 11/18/23 01/02/24 History
(Tylenol Extra Strength)
cholecalciferol (vitamin D3) 50 50 mcg PO DAILY@0900 Supplement 11/18/23 01/02/24 History
mcg (2,000 unit) capsule
insulin glargine 100 unit/mL (3 25 unit SC BID Diabetes 11/18/23 01/02/24 History
mL) subcutaneous pen (Lantus
Solostar U-100 Insulin)
tirzepatide 5 mg/0.5 mL 5 mg SC TU Diabetes 11/27/23 01/02/24 History
subcutaneous pen injector
(Mounjaro)
amiodarone 200 mg tablet 200 mg PO DAILY #30 tabs 12/05/23 01/02/24 Rx
diltiazem HCl 180 mg 360 mg PO DAILY #30 caps 12/05/23 01/02/24 Rx
capsule,extended release 24 hr
furosemide 20 mg tablet 20 mg PO DAILY PRN weight gain > 2 12/05/23 01/02/24 Rx
lbs in 24 hour #30 tabs
metoprolol succinate 100 mg 100 mg PO DAILY #30 tabs 12/05/23 01/02/24 Rx
tablet,extended release 24 hr
cyclosporine modified 25 mg capsule 50 mg PO HS 01/02/24 01/02/24 History
cyclosporine modified 25 mg capsule 75 mg PO DAILY 01/02/24 01/02/24 History
dabigatran etexilate 150 mg capsule 150 mg PO BID 01/02/24 01/02/24 History
potassium chloride 20 mEq 20 meq PO DAILY 01/02/24 01/02/24 History
tablet,extended
release(part/cryst) (Klor-Con M)
tadalafil 5 mg tablet (Cialis) 5 mg PO DAILY 01/02/24 01/02/24 History
Review of Systems
-
History Source: Patient
All other systems: Negative unless noted
Constitutional: No Symptoms
EENT: Other (Initial right eye visual clouding)
Respiratory: No Symptoms
Cardiac: No Symptoms
Abdomen/GI: No Symptoms
: No Symptoms
Musculoskeletal: No Symptoms
Skin: No Symptoms
Neurological: No Symptoms
Endocrine: No Symptoms
Hematologic/Lymphatic: No Symptoms
Physical Exam
Vital Signs
Vital Signs
Temp Pulse Resp BP Pulse Ox
97.6 F 68 16 150/64 94
01/03/24 07:00 01/03/24 13:42 01/03/24 07:00 01/03/24 13:42 01/03/24 09:00
Lab Results
01/03/24 06:23
01/03/24 06:23
WBC 6.0 10^3/uL (4.8-10.8) 01/03/24 06:23
RBC 4.56 10^6/uL (4.70-6.10) L 01/03/24 06:23
Hgb 13.0 g/dL (13.0-18.0) 01/03/24 06:23
Hct 37.1 % (39.0-52.0) L 01/03/24 06:23
Plt Count 181 10^3/uL (130-400) 01/03/24 06:23
Sodium 139 mmol/L (135-145) 01/03/24 06:23
Potassium 2.7 mmol/L (3.5-5.1) L* D 01/03/24 06:23
Chloride 102 mmol/L (98-107) 01/03/24 06:23
Carbon Dioxide 27 mmol/L (22-30) 01/03/24 06:23
BUN 12 mg/dl (9-20) 01/03/24 06:23
Creatinine 0.7 mg/dL (0.7-1.3) 01/03/24 06:23
eGFR > 60.00 01/03/24 06:23
Glucose 102 mg/dl (70-99) H 01/03/24 06:23
Calcium 9.0 mg/dl (8.4-10.2) 01/03/24 06:23
Albumin 4.1 g/dl (3.5-5.0) 01/02/24 15:40
Physical Exam
General: AOx3, No Distress and Nontoxic
HEENT: PERRL, EOMI, Anicteric, Conjunctivae Clear, Ear/Nose Intact, Hearing Normal, Oropharynx Clear/Moist, Dentition Intact, Neck Supple, Trachea Midline, No JVD and No Thyromegaly
Respiratory: Clear
Cardiac: Regular Rate/Rhythm, No Edema and Pulses (+2 radial pulses left radial AV fistula with good thrill and bruit)
Breast: Deferred by me
Abdomen: Soft, Nontender, Nondistended, Normal Bowel Sounds, No Hepatosplenomegaly and Other (Right lower kidney graft palpable no bruit)
Rectal: Deferred by Provider
Genito-urinary: No Costovertebral Tender
Musculoskeletal: No Clubbing, No Cyanosis and No Edema
Skin: No Rash
Neuro: Nonfocal/Grossly Intact, CN II-XII and Strength (5 out of 5 in both upper and lower extremity)
Hematologic/Lymphatic: No Cervical Lymphadenopathy, No Submandibular Lymphadenopathy and No Supraclavicular Lymphadenopathy
Psych: Mood/afflect pleasant and Insight/judgement good
Assessment/Plan
-
Impression:
Acute right upper visual field loss which is recovering-onset over the weekend
Diagnosed to have Central retinal artery occlusion rule by the retinal specialist-ongoing workup to rule out acute CVA
MRI:multiple small foci of acute to subacute infarction involving the right cerebral hemisphere.
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
pericardial effusion
Afib s/p CV 11/17
FSGS
Igg Gammopathy
T2DM
Anemia
HTN
BK viremia (off MMF)
Nephrolithiasis
Obesity
VIKASH
recurrent skin squamous cell cancer
Plan:
-GFR at baseline which is normal
-Patient for CTA, normal saline at 80 cc/h provided
-Maintain current immunosuppression regimen which consist of cyclosporine and prednisone
-Follow BMP
Data Reviewed
-
MRI: Report Reviewed by me (MRI of brain reviewed report: Multiple small foci of acute to subacute infarction involving the right cerebral hemisphere)
Medical Tests (Nuc Med, Echo etc): Other (EKG report reviewed normal sinus rhythm with nonspecific T wave abnormality with prolonged QT at 60 bpm per report)
Old Records: Reviewed (Reviewed old creatinine level from date 12/05/2023 creatinine 0.9, reviewed nephrology consult from late October 2023 for admission with pericarditis and renal transplant)
[2024-01-03] MEDS: NSS 1000 IV (14:55)
--- NOTE | 2024-01-03 16:00 | CON.VAS ---
Consultation
Consultation Request
Date/Time Consultation Performed: 01/03/24 1545
Requesting Provider: Brooke Quintero MD
Performing Provider: Giselle Arceo NP-C for Deon Shirley MD
Reason for Consultation: Right caroitd stenosis
Medical History
-
Chief Complaint: Right carotid stenosis
History of Present Illness:
This is a right handed 73 year old male patient with significant past medical history of atrial fibrillation, DM, hypertension, hyperlipidemia, pericardial effusion, pericarditis, IgG gammopathy, immunosuppression for kidney transplant (known to our
vascular surgery group status post left upper extremity AV fistula creation a couple years ago), and anemia who presented to ED at urgency of retinal specialist on 01/02/24 for reports of vision loss. Patient reports that on Sunday12/29/23 he reports
vision loss as if a curtain was coming down over his eyes, amaurosis fugax. He also endorses intermittent unsteady gait, now resovled, but denies aphasia, dysarthria, unilateral weakness, facial droop, chest pain, and headache. He saw his
cfo who recommend a retinal specialist that was able to see him yesterday. The retinal specialist instructed patient to come to ED for stroke work up. MRI of brain noted multiple small foci of acute to subacute infarction involving the
right cerebral hemisphere with a an ultra sound demonstration greater than 70% right ICA stenosis, prompting vascular consultation. Of note patient also reports recent hospitalization in October for likely toxicity secondary to increased dose of
everolimus resulting in pericardial effusion. He was on anticoagulation for atrial fibrillation. Therefore this was temporarily held. Now he is on Pradaxa currently. Currently he offers no complaints and believes vision loss is nearly resolved.
Past Medical History
Past Medical History: Arrhythmias (atrial fibrillation ), HTN, IDDM and Other (hyperlipidemia, pericardial effusion, pericarditis, IgG Gammopathy, anemia, obesity, VIKASH)
Past Surgical History: Tonsilectomy and Other (kidney transplant, LUE AVF creation )
Social History
Tobacco: Non-Smoker
Alcohol: None
Drug: None
Personal:
Living: With Family
Allergies / Home Medications
Allergy/AdvReac Type Severity Reaction Status Date / Time
epinephrine [Epinephrine] Allergy passed out Verified 01/02/24 14:56
ibuprofen [From Advil] Allergy Kidney Verified 01/02/24 14:56
transplant
Medication Instructions Recorded Confirmed Type
prednisone 5 mg tablet 5 mg PO DAILY Anti-Inflammatory 09/13/20 01/02/24 History
rosuvastatin 5 mg tablet 5 mg PO HS High cholesterol 09/28/21 01/02/24 History
magnesium chloride 71.5 mg 143 mg PO BID Electrolyte Repletion 11/16/23 01/02/24 History
(magnesium chloride)
tablet,delayed release (Slow-Mag)
acetaminophen 500 mg tablet 1,000 mg PO Q6HPRN PRN mild pain 11/18/23 01/02/24 History
(Tylenol Extra Strength)
cholecalciferol (vitamin D3) 50 50 mcg PO DAILY@0900 Supplement 11/18/23 01/02/24 History
mcg (2,000 unit) capsule
insulin glargine 100 unit/mL (3 25 unit SC BID Diabetes 11/18/23 01/02/24 History
mL) subcutaneous pen (Lantus
Solostar U-100 Insulin)
tirzepatide 5 mg/0.5 mL 5 mg SC TU Diabetes 11/27/23 01/02/24 History
subcutaneous pen injector
(Mounjaro)
amiodarone 200 mg tablet 200 mg PO DAILY #30 tabs 12/05/23 01/02/24 Rx
diltiazem HCl 180 mg 360 mg PO DAILY #30 caps 12/05/23 01/02/24 Rx
capsule,extended release 24 hr
furosemide 20 mg tablet 20 mg PO DAILY PRN weight gain > 2 12/05/23 01/02/24 Rx
lbs in 24 hour #30 tabs
metoprolol succinate 100 mg 100 mg PO DAILY #30 tabs 12/05/23 01/02/24 Rx
tablet,extended release 24 hr
cyclosporine modified 25 mg capsule 50 mg PO HS 01/02/24 01/02/24 History
cyclosporine modified 25 mg capsule 75 mg PO DAILY 01/02/24 01/02/24 History
dabigatran etexilate 150 mg capsule 150 mg PO BID 01/02/24 01/02/24 History
potassium chloride 20 mEq 20 meq PO DAILY 01/02/24 01/02/24 History
tablet,extended
release(part/cryst) (Klor-Con M)
tadalafil 5 mg tablet (Cialis) 5 mg PO DAILY 01/02/24 01/02/24 History
Review of Systems
-
History Source: Patient
Constitutional: Reports No Symptoms
EENT: Reports Other (Right vision loss, described as curtain closing over top vision )
Respiratory: Reports No Symptoms
Cardiac: Reports No Symptoms
Abdomen/GI: Reports No Symptoms
: Reports No Symptoms
Musculoskeletal: Reports No Symptoms
Skin: Reports No Symptoms
Neurological: Reports No Symptoms
Physical Exam
Vital Signs
Temp Pulse Resp BP Pulse Ox
97.6 F 68 16 150/64 94
01/03/24 07:00 01/03/24 13:42 01/03/24 07:00 01/03/24 13:42 01/03/24 09:00
Lab Results
01/03/24 06:23
01/03/24 06:23
Physical Exam
General: No Apparent Distress and Comfortable
HEENT: Normocephalic, Anicteric and Atraumatic
Respiratory: Non Labored Respirations
Cardiac: Negative JVD
GI: Soft, Non Tender and Non Distended
Musculoskeletal: No Edema
Skin: Warm and Dry
Neuro: AO x 3 and Nonfocal/Grossly Intact
Pulses: Bilateral Dorsalis Pedis: +1
Assessment / Plan
-
Assessment: 73 year old male symptomatic right carotid stenosis with multiple small foci of acute to subacute infarction involving the right cerebral hemisphere
Plan:
Will plan for expedited right carotid endarterectomy on 01/09/[address] Deon Shirley, can discharge home in the interim.
Recommend DAPT therapy of Plavix 75mg PO daily and ASA 81mg PO daily prior to procedure, would hold Pradaxa. Dr. Shirley reviewed with neurology who agree with medication regimen.
Discussed to return to ER [facility] with any new symptoms.
--- NOTE | 2024-01-03 16:07 | W.PN.UPDATE ---
Update Note
Progress Note Update
Seen and examined in the emergency room with MEAGAN Addison and Adis. Full consultation to follow. Briefly 73-year-old male with extensive medical history including end-stage renal disease (known to me status post left upper extremity AV fistula
creation a couple years ago). Subsequently had undergone renal transplantation (living related from his son). Most recently a couple months ago had likely toxicity secondary to increased dose of everolimus resulting in pericardial effusion.
Drainage of this resulted in bloody drainage. He was on anticoagulation for atrial fibrillation. Therefore this was temporarily held. Now he is on Pradaxa currently. Patient presented with symptoms that began 5 days ago of right eye curtain
coming down over the eye with visual loss through upper half of the visual field. No other symptoms. Denies any unilateral numbness or weakness, speech dysarthria episodes. Went to outpatient oceanographic meteorologist and then subsequently was referred to
the emergency room. Underwent MR of the brain here in the emergency room that demonstrated multiple small foci of acute to subacute infarction in the right cerebral hemisphere. I was asked by neurology to evaluate carotid stenosis.
On exam/ He is awake and alert. He is in no acute distress. Breathing is unlabored. Neurologically no focal deficits. 2+ upper extremity radial pulses palpable bilaterally. 2+ pedal pulses palpable bilaterally. Feet are warm and pink and
well-perfused. No rubor, no ulcerations.
Carotid duplex and CT angiogram head and neck images reviewed. MRI brain report reviewed.
High-grade mixed plaque right proximal internal carotid artery stenosis noted. Mostly chronic calcified plaque but spiculated irregular appearing plaque.
Plan/ Symptomatic right carotid artery stenosis. Discussed with neurology who agrees and feels that this is symptomatic and that was what prompted the referral to us. Discussed with patient and his at the bedside my recommendation for
revascularization. Discussed revascularization strategies including carotid endarterectomy and carotid stenting (both transfemoral and transcarotid). Discussed my recommendation for carotid endarterectomy based on his suitability for surgery and
anatomic candidacy. Discussed procedure at length. Discussed risks including not limited to bleeding, infection, cardiac complications/OK, cranial nerve injury, stroke (in the symptomatic setting approximately 2%). Patient understands all and is
in agreement to proceed with RIGHT carotid endarterectomy. Will plan OR next week on 01/09/2024 (can be discharged and will plan outpatient procedure). Discussed to return to ER [facility] with any new symptoms. Discussed with neurology as well as his
hvac service technician anticoagulation/antiplatelet therapy. Per neurology, recommend dual antiplatelet therapy. Would agree with that. Per cardiology reasonable to hold Pradaxa in the meanwhile. Therefore will discharge home on aspirin/Plavix dual
antiplatelet therapy. He can continue these through the surgery. Postoperatively we will resume Pradaxa and likely low-dose aspirin. Discussed with hospitalist as well.
[2024-01-03] MEDS: PLAVIX 75 MG PO (17:22)
[2024-01-03] MEDS: NOVOLOG FLEXPEN-LOW RESISTANCE 1 UNITS SC (17:23)
[2024-01-03 17:27] LABS: Glucose - Point of Care 175 mg/dl (70-99)
--- NOTE | 2024-01-03 18:12 | PTCARENOTE ---
Arrived to unit and ambulated to room. NIH of 1 for partial gaze with R eye. IVF infusing via R Forearm. Ice pack applied to IV infiltrate. Oriented to room. Dr. Conrad made aware of BP 179/95. No new orders at this time. BP taken in L calf due upper
extremity restrictions (fistula to LUE, swollen infiltrate to RUE). No complaints at this time.
[2024-01-03 21:11] LABS: Glucose - Point of Care 154 mg/dl (70-99)
[2024-01-03] MEDS: CRESTOR 5 MG PO (21:14)
[2024-01-03] MEDS: NEORAL 50 MG PO (22:09)
[2024-01-04 00:16] VITALS: BP 168/91
[2024-01-04] MEDS: NSS 1000 IV (03:23)
[2024-01-04 03:49] VITALS: BP 162/76
--- NOTE | 2024-01-04 05:48 | PTCARENOTE ---
Pt with high BPs throughout the night House TECHNICAL SUPERVISOR made aware throughout the night. PRN IV hydralazine ordered.
[2024-01-04 07:05] LABS: Glucose - Point of Care 104 mg/dl (70-99)
[2024-01-04] MEDS: NOVOLOG FLEXPEN-LOW RESISTANCE SC ×2 (07:17→13:12)
[2024-01-04 07:52] LABS: Hematocrit 39.8 % (39.0-52.0); Hemoglobin 13.5 g/dL (13.0-18.0); Mean Corp Hgb Conc. 33.9 g/dL (33.0-37.0); Mean Corpuscular Hgb 28.2 pg (27.0-31.0); Mean Corpuscular Volume 83.3 fL (80.0-94.0); Mean Platelet Volume 9.8 fL (7.4-10.4); Platelet Count 180 10^3/uL (130-400); Red Blood Cell Count 4.78 10^6/uL (4.70-6.10); Red Cell Dist. Width 14.9 % (11.5-14.5); White Blood Cell Count 6.6 10^3/uL (4.8-10.8)
[2024-01-04 08:04] VITALS: BP 162/84
[2024-01-04 08:29] LABS: Blood Urea Nitrogen 9 mg/dl (9-20); Calcium 8.7 mg/dl (8.4-10.2); Carbon Dioxide 25 mmol/L (22-30); Chloride 106 mmol/L (98-107); Estimated Creatinine Clearance 104 ml/min; Glucose 102 mg/dl (70-99); Potassium 2.7 mmol/L (3.5-5.1); Sodium 137 mmol/L (135-145); eGFR > 60.00
[2024-01-04 08:55] LABS: Magnesium 1.6 mg/dl (1.6-2.3)
[2024-01-04] MEDS: PACERONE 200 MG PO (09:18)
[2024-01-04] MEDS: MIRALAX 17 GRAMS PO (09:20)
[2024-01-04] MEDS: NEORAL 75 MG PO (09:21)
[2024-01-04] MEDS: DELTASONE 5 MG PO (09:25)
[2024-01-04] MEDS: KCL 20 MEQ PO (09:25)
[2024-01-04] MEDS: TOPROL XL 100 MG PO (09:26)
[2024-01-04] MEDS: PLAVIX 75 MG PO (09:26)
[2024-01-04] MEDS: MAG-TAB SR 168 MG PO (09:27)
[2024-01-04] MEDS: CARDIZEM CD 360 MG PO (09:27)
[2024-01-04] MEDS: LANTUS 0.25 UNITS SC (09:28)
[2024-01-04] MEDS: ASPIR LOW (ENTERIC COATED) 81 MG PO (09:28)
[2024-01-04] MEDS: KCL 270 MEQ IV (09:30)
--- NOTE | 2024-01-04 10:06 | W.PN.HOSP.TC ---
Today's Communication/Plan
-
DC planning
Assessment / Plan
Assessment / Plan
# Acute right upper visual field loss which is recovering-onset over the weekend sec to CVA
# Acute to subacute ischemic infarcts-involving the right cerebral hemisphere, right occipital lobe infarction. Patient does have symptomatic right ICA stenosis.
Continued improvement with eversion. No new symptoms.
Neurology and vascular input appreciated-patient will be on DAPT ,off of Pradaxa for now, and going in for right carotid endarterectomy on 01/08.
#Essential hypertension: Most of the readings are under control. Currently on metoprolol/Diltiazem . He states in the past he was on Coreg, nifedipine, losartan. Will discuss with nephrology regarding reintroducing losartan.
#hxt of kidney transplant
-cyclosporine continued-dose decreased recently based on levels
-prednisone continued
# Severe hypokalemia without extrarenal losses. Patient on home KCl treatment. His potassium is 2.7 today we will give a rider. Will discuss with nephrology.
#Paroxysmal atrial fibrillation with RVR
-s/p BRITTANY/CV 11/23/23
-continue Toprol-XL, Diltiazem
-Resume pradaxa after CT
# History of pericardial effusion
-s/p pericardiocentesis� 11/28/23
#DM2 with hyperglycemia
- cont Lantus/SSI/AccuCheck
-carb controlled diet
#Hyperlipidemia: Continue statin
#Obesity due to excess calories: outpatient weight loss
#FULL/SCDs
Discussed with vascular yesterday regarding plan of CEA which patient is agreeable.
Will discuss with nephrology prior to discharge.
DC later today after KCl rider if ok from nephrology standpoint
Anticipated Discharge: Today
Subjective/Interval History
-
Date of Service: January 04, 2024
Patient feels improved with the right eye vision. No new symptoms.
Objective Data
-
Labs:
Laboratory Results
01/04/24
06:52
WBC 6.6
Hgb 13.5
Hct 39.8
Plt Count 180
Sodium 137
Potassium 2.7 L*
Chloride 106
Carbon Dioxide 25
BUN 9
Creatinine 0.7
Glucose 102 H
Calcium 8.7
Vital Signs:
Vital Signs
Temp Pulse Resp BP Pulse Ox
97.8 F 69 18 162/84 99
01/04/24 08:04 01/04/24 08:04 01/04/24 08:04 01/04/24 08:04 01/04/24 08:04
I&O
01/03/24 01/04/24 01/05/24
06:59 06:59 06:59
Intake Total 720 / 720
Output Total 700 / 700 1530 / 1530
Balance -700 / -700 -810 / -810
Review of Systems
-
Respiratory: Denies Trouble Breathing
Cardiac: Denies Chest Pain or Palpitations
Abdomen/GI: Reports Constipated; Denies Abdominal Pain
Neuro: Denies Dizzy, Headache, Weakness or Tremors
Physical Exam
-
General: No Apparent Distress
HEENT: Moist Mucous Membranes
Respiratory: Clear to Auscultation
Cardiac: Regular Rhythm and S1/S2
GI: Soft
Neuro: AO x 3 and No Motor Deficits
Psych: Calm; Negative Confused or Agitated
Data Reviewed
-
Labs: Labs Reviewed by me
--- NOTE | 2024-01-04 10:29 | PTOTSP ---
The patient is independent with ambulation and elevations without a device, no balance deficits noted. No PT needs identified at this time, will sign off.
--- NOTE | 2024-01-04 10:54 | W.PN.NEURO.1 ---
Addendum entered and electronically signed by Irineo Quintero MD 01/04/24 14:32:
I saw and evaluated the patient I reviewed the note by Elvia Vasquez agree with the findings the following comments:
73-year-old man presenting with episodes of right eye vision loss and has been found to have largely asymptomatic right MCA territory strokes along with significant stenosis of the right internal carotid artery. Presumed he has symptomatic right
carotid stenosis. Additional medical history significant for renal transplant, pericarditis, atrial fibrillation on Pradaxa and diabetes.
Stable neurologic examination, no changes from previous exam
CTA supportive of greater than 70% stenosis of the right ICA
MRI brain with scattered 5 areas of right MCA acute infarct, patient also likely had a branch retinal artery occlusion as well.
Recommendations
-Aspirin and clopidogrel therapy until planned carotid endarterectomy next week on Sunday
-After carotid endarterectomy okay for resuming anticoagulation from a surgical standpoint would stop Plavix and start Pradaxa, continue on aspirin until seen by neurology follow-up.
-Neurology follow-up in approximately 4 weeks
-No further inpatient monitoring or diagnostic needed from my perspective, will sign off
Original Note:
Documented by User: Evlia Gallardo NP 01/04/24 12:02
Today's Communication / Plan
-
.
Neuro Assessment/Plan
Assessment
73 year old right handed man with history of renal transplant, pericarditis, atrial fibrillation, diabetes presenting to hospital because of right eye vision changes that started this past Sunday.� They were painless and had an intermittent
curtain coming down quality and an bladder trimmer referred them to the ED.� No unusual headaches, no head or neck trauma.� No symptoms of left face arm or leg paresthesia or weakness, confusion or speech difficulty.� Has been on Pradaxa.� No
history of stroke previously. He has been having some right eye ptosis for about the past year, no double vision or dysphagia.
-CT Head 01/02/24: No acute intracranial abnormality noted.
-MRI Brain 01/03/24: There are multiple small foci of acute to subacute infarction involving the right cerebral hemisphere. Punctate focus of decreased T2 gradient-echo signal associated with the small focus of right occipital lobe infarction, which
is probably a tiny focus of punctate hemorrhage, likely not macroscopic. No evidence of mass effect or midline shift.
-Carotid Ultrasound 01/03/24: By velocity criteria, there is greater than 70% stenosis of the right internal carotid artery. By velocity criteria, any left internal carotid artery stenosis present is in the range of 0-49%. Antegrade flow bilateral
vertebral arteries
-CTA head/neck 01/03/24: No acute intracranial hemorrhage. Minor chronic microvascular white matter ischemic disease. Significant large volume calcified plaque involving the right carotid bulb and extending into the proximal ICA, with high-grade
severe preocclusive stenosis. The remainder of the right cervical ICA is patent.
I. 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
II. Right eye ptosis possibly due to chronic R ICA stenosis; low concern for Myasthenia gravis.
III. Incidental L MCA 3mm infundibulum on MRA COW imaging, anatomic variant vs small aneurysm. Sister has a history of cerebral aneurysm s/p repair.
IV. Peripheral neuropathy.
Plan
-Right carotid endarterectomy scheduled for 01/09/24.
-Hold Pradaxa.
-Continue aspirin 81mg and clopidogrel 75mg daily until surgery.
-Vascular surgery following.
-Goal normotension.
-LDL goal <70. LDL is 66. Ok to continue home rosuvastatin 5mg daily as LDL is at goal.
-Goal normoglycemia, hbA1c is 8.1.
-NIHSS and neurological checks per unit guidelines.
-Provide patient with a stroke education packet. Reviewed s/s of stroke and when to call 911.
-PT/OT/ST evaluations.
-DVT prophylaxis.
-Consider acetylcholine receptor and MUSK antibody testing as an outpatient if right eye ptosis doesn't improve.
-Follow-up with a Neurovascular interventionalist regarding L MCA 3mm infundibulum, contact info provided to patient for Dr. Smith at [facility].
-Will follow as needed. Patient should also follow-up with Neurology as an outpatient in about 4 weeks, may see the COMIC ARTIST or Dr. Quintero.
Subjective/Objective
Subjective Data
Date of Service: January 04, 2024
No acute events overnight. Patient denies any headache, dizziness, speech/swallow difficulty, vision changes, numbness, weakness, chest pain, palpitations, and shortness of breath.
Objective Data
Vital Signs
Temp Pulse Resp BP Pulse Ox
97.8 F 69 18 162/84 99
01/04/24 08:04 01/04/24 08:04 01/04/24 08:04 01/04/24 08:04 01/04/24 08:04
Lab Results
01/04/24 06:52
01/04/24 06:52
Sodium 137 mmol/L (135-145) 01/04/24 06:52
Potassium 2.7 mmol/L (3.5-5.1) L* 01/04/24 06:52
BUN 9 mg/dl (9-20) 01/04/24 06:52
Glucose 102 mg/dl (70-99) H 01/04/24 06:52
Calcium 8.7 mg/dl (8.4-10.2) 01/04/24 06:52
LDL Cholesterol, Calc 66 mg/dl 01/03/24 06:23
Patient Allergies
epinephrine [Epinephrine] Allergy (Verified 01/02/24 14:56)
passed out
ibuprofen [From Advil] Allergy (Verified 01/02/24 14:56)
Kidney transplant
LDL Level: <70, continue statin
Review of Systems
-
History Source: Patient
EENT: Negative Blurry Vision, Decreased Vision or Swallowing Difficulty
Respiratory: Negative Cough or Trouble Breathing
Cardiac: Negative Chest Pain or Palpitations
Abdomen/GI: Negative Nausea
Neuro: Negative Dizzy, Headache, Weakness, Numbness, Ataxia, Tremors or Speech Problem
Physical Exam
-
General: Well Developed, Well Nourished and No Apparent Distress
Eyes: PERRLA; Negative No Ptosis (slight right eye ptosis)
HEENT: Normocephalic and Atraumatic
Neck: Full Range of Motion
Respiratory: No Dyspnea
GI: Non-distended
Extremities: No Clubbing, No Cyanosis and No Edema
Psych: Unremarkable
Extended Neurological Exam
Mood & Affect: Mood Unremarkable and Affect Unremarkable
Attention Span & Concentration: Awake, Alert, Interactive and No Difficulty with 2 Step Request
Memory: Unremarkable (AAOx3) and Able to Recall
Tremor: Hand Tremor Absent and Head Tremor Absent
Involuntary Movement: None
Speech: Quality Unremarkable, Quantity Unremarkable and Rate of Production Unremarkable
Cranial Nerve II: Left Eye: Pupillary Reactivity Unremarkable, Pupillary Size Unremarkable and Visual Vieyra Intact
Cranial Nerve II: Right Eye: Pupillary Reactivity Unremarkable, Pupillary Size Unremarkable and Visual Vieyra Intact
Cranial Nerves III, IV, : Extraocular Movement: Extraocular Movement Full in all Directions and Other (left eye with intermittent dysconjugate movements, chronic since renal transplant.)
Cranial Nerve V: Facial Sensation: Intact to Light Touch
Cranial Nerve VII: Facial Symmetry: Normal Facial Symmetry
Cranial Nerve VIII: Hearing: Unremarkable Hearing to Normal Conversational Volume
Cranial Nerves IX, X: Palate Movement: Palate Elevation Symmetric
Cranial Nerve XI: Shoulder Shrug: Unremarkable
Cranial Nerve XII: Tongue Protusion: Midline
Muscle Strength, Overall: Full Throughout
Muscle Bulk & Tone: Bulk Unremarkable and Tone Unremarkable
Pronator Drift: No Drift in Upper Extremities and No Drift in Lower Extremities
Touch Sensation: Double Simultaneous Stimulation Unremarkable
Coordination: [id number] Testing Unremarkable
Babinski Sign: Absent Bilaterally
Gait & Station: Up from Seated Without Problem
Modified [place] Score (MRS)
-
Modified [place] Scale (mRS): No symptoms
Score: 0
Data Reviewed
-
CT-A: Report Reviewed and Image Reviewed
CT Head: Report Reviewed and Image Reviewed
MRI Head: Report Reviewed and Image Reviewed
MRA Head: Report Reviewed and Image Reviewed
Carotid Ultrasound: Report Reviewed
Labs: Report Reviewed
Lipid Profile: Report Reviewed
HgbA1C: Report Reviewed
Reviewed with: Physician and Patient
NIH Stroke Score
Subsequent NIH Scale
Date of Subsequent NIH Scale: 01/04/24
Time of Subsequent NIH Scale: 10:30
NIH Stroke Score
Level of Consciousness: 0 - Alert
LOC Questions: 0-Answers both correctly
LOC Commands: 0-Performs both correctly
Best Horizontal Gaze: 0-Normal
Visual Vieyra: 0=Normal, no visual loss
Facial Palsy: 1=Minor paralysis
Motor - Right Arm: 0=No drift 10 seconds
Motor - Left Arm: 0=No drift 10 seconds
Motor - Right Le-No drift 5 seconds
Motor - Left Le-No drift 5 seconds
Limb Ataxia: 0-Absent
Sensation: 0-Normal
Best Language: 0-No aphasia
Dysarthria: 0-Normal
Extinction and Inattention: 0-No abnormality
Total Score:: 1
Modified [place] (mRS) Score
Modified [place] Scale (mRS): No symptoms
Score: 0
Medications
-
Active Medications
Generic Name Dose Route Start Last Admin
Trade Name Freq PRN Reason Stop Dose Admin
Acetaminophen 650 mg 01/02/24 20:55
Acetaminophen 650 Mg Rectal Suppository RECTAL 01/30/24 20:54
Q4HPRN PRN
BURTON, mild pain, or temp >100.4F
Acetaminophen 650 mg 01/02/24 20:55
Acetaminophen 325 Mg Tablet PO 01/30/24 20:54
Q4HPRN PRN
BURTON, mild pain, or temp >100.4F
Amiodarone HCl 200 mg 01/03/24 08:00 01/04/24 09:18
Amiodarone 200 Mg Tablet PO 01/31/24 07:59 200 mg
DAILY SHAWNEE Administration
Aspirin 81 mg 01/04/24 08:00 01/04/24 09:28
Aspirin 81 Mg (Enteric Coated) Tablet PO 02/01/24 07:59 81 mg
DAILY SHAWNEE Administration
Clopidogrel Bisulfate 75 mg 01/03/24 17:00 01/04/24 09:26
Clopidogrel 75 Mg Tablet PO 01/23/24 08:01 75 mg
DAILY SHAWNEE Administration
Cyclosporine 50 mg 01/02/24 22:00 01/03/24 22:09
Cyclosporine, Modified (Neoral) 25 Mg Capsule PO 01/30/24 21:59 50 mg
HS SHAWNEE Administration
Cyclosporine 75 mg 01/03/24 08:00 01/04/24 09:21
Cyclosporine, Modified (Neoral) 25 Mg Capsule PO 01/31/24 07:59 75 mg
DAILY SHAWNEE Administration
Dextrose 12.5 grams 01/02/24 20:55
Dextrose 50% (0.5 Grams/Ml) 50 Ml Syringe IV 01/30/24 20:54
[id number] PRN
hypoglycemia
Protocol
Diltiazem HCl 360 mg 01/03/24 08:00 01/04/24 09:27
Diltiazem 180 Mg Extended Release (24 H) Capsule PO 01/31/24 07:59 360 mg
DAILY SHAWNEE Administration
Glucagon 1 mg 01/02/24 20:55
Glucagon 1 Mg Vial IM 01/30/24 20:54
PRN PRN
hypoglycemia
Protocol
Hydralazine HCl 5 mg 01/04/24 00:22
Hydralazine 20 Mg/Ml Vial IV 02/01/24 00:21
Q4HPRN PRN
SBP >170
Insulin Glargine 25 units/ 0.25 mls @ 0 mls/hr 01/02/24 22:00 01/04/24 09:28
Device SC 01/30/24 21:59 0.25 mls
BID SHAWNEE Administration
As Directed
Sodium Chloride 1,000 mls @ 80 mls/hr 01/03/24 14:30 01/04/24 03:23
Nss IV 1,000 mls
.[id number] SHAWNEE Administration
Potassium Chloride 40 meq/ 270 mls @ 67.5 mls/hr 01/04/24 08:32 01/04/24 09:30
Sodium Chloride IV 01/04/24 12:31 270 mls
NOW STA Administration
Magnesium Sulfate/Dextrose 1 gm in 100 mls @ 100 mls/hr 01/04/24 10:16
Magnesium Sulfate IV 01/04/24 11:15
NOW STA
Insulin Aspart 0 units 01/03/24 07:30 01/04/24 07:17
Insulin Aspart Low Resistance 300 Units/3 Ml Pen.Injctr SC 01/31/24 07:29 Not Given
AC SHAWNEE
Protocol
Magnesium 168 mg 01/02/24 22:00 01/04/24 09:27
Magnesium Lactate 84 Mg Tablet PO 01/30/24 21:59 168 mg
BID SHAWNEE Administration
Metoprolol Succinate 100 mg 01/03/24 08:00 01/04/24 09:26
Metoprolol 100 Mg Extended Release Tablet PO 01/31/24 07:59 100 mg
DAILY SHAWNEE Administration
Polyethylene Glycol 17 grams 01/04/24 08:00 01/04/24 09:20
Polyethylene Glycol Powder 17 Grams Packet PO 02/01/24 07:59 17 grams
DAILY SHAWNEE Administration
Potassium Chloride 20 meq 01/03/24 08:00 01/04/24 09:25
Potassium Chloride 20 Meq Extended Release Tablet PO 01/31/24 07:59 20 meq
DAILY SHAWNEE Administration
Prednisone 5 mg 01/03/24 08:00 01/04/24 09:25
Prednisone 5 Mg Tablet PO 01/31/24 07:59 5 mg
DAILY SHAWNEE Administration
Rosuvastatin Calcium 5 mg 01/02/24 22:00 01/03/24 21:14
Rosuvastatin (Crestor) 5 Mg Tablet PO 01/30/24 21:59 5 mg
HS SHAWNEE Administration
Sodium Chloride 0 flush 01/02/24 22:00
Sodium Chloride 0.9% (Flush) Syringe IV 01/30/24 21:59
PER PROTOCOL SHAWNEE
Spironolactone 12.5 mg 01/04/24 11:00
Spironolactone 12.5 Mg Dose (1/2 Of 25 Mg Tablet) PO 02/01/24 10:59
DAILY SHAWNEE
Home Medications
Medication Instructions Recorded
prednisone 5 mg tablet 5 mg PO DAILY Anti-Inflammatory 09/13/20
rosuvastatin 5 mg tablet 5 mg PO HS High cholesterol 09/28/21
magnesium chloride 71.5 mg 143 mg PO BID Electrolyte Repletion 11/16/23
(magnesium chloride)
tablet,delayed release (Slow-Mag)
acetaminophen 500 mg tablet 1,000 mg PO Q6HPRN PRN mild pain 11/18/23
(Tylenol Extra Strength)
cholecalciferol (vitamin D3) 50 50 mcg PO DAILY@0900 Supplement 11/18/23
mcg (2,000 unit) capsule
insulin glargine 100 unit/mL (3 25 unit SC BID Diabetes 11/18/23
mL) subcutaneous pen (Lantus
Solostar U-100 Insulin)
tirzepatide 5 mg/0.5 mL 5 mg SC TU Diabetes 11/27/23
subcutaneous pen injector
(Mounjaro)
amiodarone 200 mg tablet 200 mg PO DAILY #30 tabs 12/05/23
diltiazem HCl 180 mg 360 mg PO DAILY #30 caps 12/05/23
capsule,extended release 24 hr
furosemide 20 mg tablet 20 mg PO DAILY PRN weight gain > 2 12/05/23
lbs in 24 hour #30 tabs
metoprolol succinate 100 mg 100 mg PO DAILY #30 tabs 12/05/23
tablet,extended release 24 hr
cyclosporine modified 25 mg capsule 50 mg PO HS 01/02/24
cyclosporine modified 25 mg capsule 75 mg PO DAILY 01/02/24
dabigatran etexilate 150 mg capsule 150 mg PO BID 01/02/24
potassium chloride 20 mEq 20 meq PO DAILY 01/02/24
tablet,extended
release(part/cryst) (Klor-Con M)
tadalafil 5 mg tablet (Cialis) 5 mg PO DAILY 01/02/24

Documented by User: Irineo Quintero MD 01/04/24 14:29
Modified [place] Score (MRS)
-
Score: 0
NIH Stroke Score
NIH Stroke Score
Total Score:: 1
Modified [place] (mRS) Score
Score: 0
[2024-01-04] MEDS: ALDACTONE 12.5 MG PO (11:27)
[2024-01-04 11:44] VITALS: BP 184/77
[2024-01-04 13:12] LABS: Glucose - Point of Care 131 mg/dl (70-99)
--- NOTE | 2024-01-04 13:21 | W.PN.NEPH.PH ---
Today's Communication / Plan
-
- initiate spironolactone
Assessment/Plan
-
Impression:
Acute right upper visual field loss which is recovering-onset over the weekend
Diagnosed to have Central retinal artery occlusion rule by the retinal specialist-ongoing workup to rule out acute CVA
MRI:multiple small foci of acute to subacute infarction involving the right cerebral hemisphere.
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
pericardial effusion
Afib s/p CV 11/17
FSGS
Igg Gammopathy
T2DM
Anemia
HTN
BK viremia (off MMF)
Nephrolithiasis
Obesity
VIKASH
recurrent skin squamous cell cancer
Plan:
-GFR at baseline which is normal
-Maintain current immunosuppression regimen which consist of cyclosporine and prednisone
-noted to have hypertension and hypokalemia. initiated on spironolactone 12.5mg
-Follow BMP
-
-
Date of Service: January 04, 2024
CC / HPI / ROS
-
Chief Complaint:
s/p renal transplant
History of Present Illness:
acute right upper visual field loss which is recovering
blood pressures elevated, previously on losartan. in setting of hypoK, will initiate spironolactone
renal function at baseline
Review of Systems:
feeling well, hoping to go home soon
Labs
-
Labs:
WBC 6.6 10^3/uL (4.8-10.8) 01/04/24 06:52
RBC 4.78 10^6/uL (4.70-6.10) 01/04/24 06:52
Hgb 13.5 g/dL (13.0-18.0) 01/04/24 06:52
Hct 39.8 % (39.0-52.0) 01/04/24 06:52
Plt Count 180 10^3/uL (130-400) 01/04/24 06:52
Sodium 137 mmol/L (135-145) 01/04/24 06:52
Potassium 2.7 mmol/L (3.5-5.1) L* 01/04/24 06:52
Chloride 106 mmol/L (98-107) 01/04/24 06:52
Carbon Dioxide 25 mmol/L (22-30) 01/04/24 06:52
BUN 9 mg/dl (9-20) 01/04/24 06:52
Creatinine 0.7 mg/dL (0.7-1.3) 01/04/24 06:52
eGFR > 60.00 01/04/24 06:52
Glucose 102 mg/dl (70-99) H 01/04/24 06:52
Calcium 8.7 mg/dl (8.4-10.2) 01/04/24 06:52
Albumin 4.1 g/dl (3.5-5.0) 01/02/24 15:40
Physical Exam
-
Vital Signs:
Vital Signs
Temp Pulse Resp BP Pulse Ox
98.0 F 66 18 184/77 98
01/04/24 11:44 01/04/24 11:44 01/04/24 11:44 01/04/24 11:44 01/04/24 11:44
Cardiovascular:: Regular rate and rhythm
Respiratory:: Bilateral: CTA
Lung Excursion:: Normal
Abdomen:: Nontender and Soft
Bowel Sounds:: Normal
Extremity Edema:: None: Bilateral:
Garcia Catheter: No
[2024-01-04 14:04] VITALS: BP 144/89
[2024-01-04] MEDS: MAGNESIUM SULFATE 100 IV (14:13)
[2024-01-04 15:09] VITALS: BP 187/91
--- NOTE | 2024-01-04 15:42 | CM ---
Alert awake oriented patient who lives with his Betzaida who lives in a 2 story home with 3 step to enter and 13 steps to bed and bathroom. He is independent in driving and in all activities of daily living.He was offered VN he declined need.
[facility] number for billing because she said she keeps getting bills and she does not know why. Pt to return next week for carotid endarterectomy.
[place] V[facility] hx / No SNF history
Pharmacy [facility]
PCP DR Conteh
PLAN Home Declined VN
--- NOTE | 2024-01-04 15:59 | W.DS.TRANS ---
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
-
Discharge Instructions:
Discharge Diagnosis/Procedures Acute stroke; symptomatic right carotid
stenosisl ;renal transplant
Diet 2 Gram Sodium,Low Cholesterol
Activity As tolerated,No strenuous activity
Driving Restrictions Not until seen by your Dr
Bathing Restrictions None
Specialty Instructions Weigh Daily
Instructions:
Stand-Alone Forms:
Changes to Home Medications: Yes
Discharge Medications:
DC Medications w/original date entered in [employer]
prednisone 5 mg tablet 5 mg PO DAILY Anti-Inflammatory 09/13/20
rosuvastatin 5 mg tablet 5 mg PO HS High cholesterol 09/28/21
magnesium chloride 71.5 mg (magnesium chloride) tablet,delayed release (Slow-Mag) 143 mg PO BID Electrolyte Repletion 11/16/23
acetaminophen 500 mg tablet (Tylenol Extra Strength) 1,000 mg PO Q6HPRN PRN mild pain 11/18/23
cholecalciferol (vitamin D3) 50 mcg (2,000 unit) capsule 50 mcg PO DAILY@0900 Supplement 11/18/23
insulin glargine 100 unit/mL (3 mL) subcutaneous pen (Lantus Solostar U-100 Insulin) 25 unit SC BID Diabetes 11/18/23
tirzepatide 5 mg/0.5 mL subcutaneous pen injector (Mounjaro) 5 mg SC TU Diabetes 11/27/23
amiodarone 200 mg tablet 200 mg PO DAILY #30 tabs 12/05/23
diltiazem HCl 180 mg capsule,extended release 24 hr 360 mg PO DAILY #30 caps 12/05/23
furosemide 20 mg tablet 20 mg PO DAILY PRN weight gain > 2 lbs in 24 hour #30 tabs 12/05/23
metoprolol succinate 100 mg tablet,extended release 24 hr 100 mg PO DAILY #30 tabs 12/05/23
cyclosporine modified 25 mg capsule 50 mg PO HS 01/02/24
cyclosporine modified 25 mg capsule 75 mg PO DAILY 01/02/24
dabigatran etexilate 150 mg capsule 150 mg PO BID 01/02/24
potassium chloride 20 mEq tablet,extended release(part/cryst) (Klor-Con M) 20 meq PO DAILY 01/02/24
tadalafil 5 mg tablet (Cialis) 5 mg PO DAILY 01/02/24
aspirin 81 mg tablet,delayed release 81 mg PO DAILY #30 tabs 01/04/24
clopidogrel 75 mg tablet 75 mg PO DAILY #15 tabs 01/04/24
polyethylene glycol 3350 17 gram oral powder packet (HealthyLax) 17 g PO DAILY #30 ea 01/04/24
spironolactone 25 mg tablet 12.5 mg PO DAILY #30 tabs 01/04/24
Home Medication Changes
Medication-Aldactone, polyethylene glycol, Plavix and aspirin
Hold medication-Pradaxa till carotid endarterectomy.
Pending Results: No
--- NOTE | 2024-01-04 18:20 | W.DCSUMMARY ---
Discharge Summary
Discharge Data
Date of Admission: 01/02/24
Date of Discharge: 01/04/24
-
Pending Results: No
Hospital Course
Primary diagnosis:
Acute cerebral ischemic infarct
Symptomatic right carotid artery stenosis
Hypokalemia
Secondary diagnosis:
S/p renal transplant
Hypertension
Paroxysmal atrial fibrillation on Pradaxa
Diabetes mellitus type 2
Hospital course:
Patient developed right eye curtain down vision loss the weekend before presentation to the hospital. 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
retinal artery occlusion on the right side so sent him for stroke workup. He had no obvious motor deficit. He was feeling unsteady over the weekend. MRI of the brain shows multiple small foci of acute to subacute infarction involving the right
cerebral hemisphere. There is also a small focus of right occipital lobe infarction which is probably a tiny focus of punctate hemorrhage likely not microscopic.
CTA showed Significant large volume calcified plaque involving the right carotid bulb and extending into the proximal ICA, with high-grade severe preocclusive stenosis. The remainder of the right cervical ICA is patent.He was seen by vascular
surgery for right carotid symptomatic stenosis. Right carotid endarterectomy was recommended which he was agreeable to the patient.
His Pradaxa was stopped and he was put on dual antiplatelet agent with aspirin and Plavix till his CEA. After that he can continue with Pradaxa and aspirin and drop Plavix.
His blood pressure was not under control. Was seen by mold release worker. Added spironolactone. It also should be helping his hypokalemia noted on this admission. He is normally on potassium supplementation daily at home. He was advised to get a
repeat BMP in 2 to 3 days.
Consultants on board:
Neurology-Dr. Quintero
Vascular-Dr. Shirley
Nephrology-Dr. Mejia
Discharge Plan
-
Patient Disposition: Home (Routine Discharge)
Discharge Diagnosis/Procedures: Acute stroke; symptomatic right carotid stenosisl ;renal transplant
Diet: Low Cholesterol and 2 Gram Sodium
Activity: As tolerated and No strenuous activity
Driving Restrictions: Not until seen by your Dr
Bathing Restrictions: None
Blood Work: BMP -2-3 days -slip given
Specialty Instructions: Weigh Daily- Call MD for wt gain/loss 3 lbs overnight/5 lbs in 1 week
Referrals:
Duarte Walsh MD [Active] - in one month
Naomy Conteh DO [Family Provider] - in less than 1 week
Deon Shirley MD [Active] - (Plan for surgery Monday 01/08)
Prescriptions:
New
aspirin 81 mg Tablet,Delayed Release (Dr/Ec)
81 mg PO DAILY Qty: 30 0RF
spironolactone 25 mg Tablet
12.5 mg PO DAILY Qty: 30 0RF
polyethylene glycol 3350 [HealthyLax] 17 gram Powder In Packet
17 g PO DAILY Qty: 30 0RF
clopidogrel 75 mg Tablet
75 mg PO DAILY Qty: 15 0RF
Continued
prednisone 5 MG tablet
5 mg PO DAILY
rosuvastatin 5 MG tablet
5 mg PO HS
Slow-Mag 71.5 mg Tablet,Delayed Release (Dr/Ec)
143 mg PO BID
acetaminophen [Tylenol Extra Strength] 500 mg Tablet
1,000 mg PO Q6HPRN PRN (Reason: mild pain)
insulin glargine [Lantus Solostar U-100 Insulin] 100 unit/mL (3 mL) Insulin Pen
25 unit SC BID
cholecalciferol (vitamin D3) 50 mcg (2,000 unit) Capsule
50 mcg PO DAILY@0900
Mounjaro 5 mg/0.5 mL Pen Injector
5 mg SC TU
diltiazem HCl 180 mg Capsule,Extended Release 24hr
360 mg PO DAILY Qty: 30 0RF
metoprolol succinate 100 mg Tablet Extended Release 24 Hr
100 mg PO DAILY Qty: 30 0RF
furosemide 20 mg Tablet
20 mg PO DAILY PRN (Reason: weight gain > 2 lbs in 24 hour) Qty: 30 0RF
amiodarone 200 mg tablet
200 mg PO DAILY Qty: 30 0RF
potassium chloride [Klor-Con M20] 20 mEq tablet,ER particles/crystals
20 meq PO DAILY
tadalafil [Cialis] 5 mg Tablet
5 mg PO DAILY
cyclosporine modified 25 mg Capsule
50 mg PO HS
cyclosporine modified 25 mg Capsule
75 mg PO DAILY
Held
dabigatran etexilate 150 mg capsule
150 mg PO BID
Hold Instructions: Resume on 01/11/24. till right carotid endarterectomy
Discharge Orders:
Discharge Patient (As Directed); Ordered 01/04/24
Ordered By: Basilio Conrad
Discharge Date and Time
Discharge Date/Time: 01/04/24 16:35
== END 2024-01-04 16:35 | disposition home or self-care (01) | DRG 64 ==
LOC: 4 EAST ACU 19:58
PROVIDERS: Registered Nurse; ADMITTING PHYSICIAN Internal Medicine; CONSULT PHYSICIAN Specialist; CONSULT PHYSICIAN Surgery Vascular Surgery; EMERGENCY PHYSICIAN Emergency Medicine; FAMILY PHYSICIAN Family Medicine; OTHER PHYSICIAN Student in an Organized Health Care Education/Training Program
DX: I63.9 Cerebral infarction, unspecified (principal); I50.33 Acute on chronic diastolic (congestive) heart failure; I13.2 Hypertensive heart and chronic kidney disease with heart failure and with stage 5 chronic kidney disease, or end stage renal disease; Z94.0 Kidney transplant status; D84.821 Immunodeficiency due to drugs; I65.21 Occlusion and stenosis of right carotid artery; E87.6 Hypokalemia; I48.0 Paroxysmal atrial fibrillation; E11.22 Type 2 diabetes mellitus with diabetic chronic kidney disease; E11.65 Type 2 diabetes mellitus with hyperglycemia; D47.2 Monoclonal gammopathy; G47.33 Obstructive sleep apnea (adult) (pediatric); D64.9 Anemia, unspecified; E66.09 Other obesity due to excess calories; Z68.32 Body mass index [BMI] 32.0-32.9, adult; Z79.4 Long term (current) use of insulin; Z79.01 Long term (current) use of anticoagulants
CPT/HCPCS: 70450; 70496; 70498; 70544; 70551; 80048; 80053; 80061; 80158; 82962; 83036; 83735; 85025; 85027; 85652; 92610; 93005; 93880; 97116; 97166; 99285; Q9967

== ENCOUNTER 2024-01-09 06:18 | Inpatient (IN) | payer MEDICARE, OTHER, SELFPAY ==
[2024-01-09] MEDS: PERIDEX 0.12% ORAL RINSE 15 ML PO (06:54)
[2024-01-09] MEDS: BACTROBAN 2% OINTMENT 2 APPLIC NASAL (06:55)
--- NOTE | 2024-01-09 06:58 | W.SUR.PREOP ---
Pre-Operative Surgical Note
-
I have examined this patient prior to the performance of the scheduled procedure.
The patient's condition is unchanged from the time of the current History and
Physical and the patient is able to undergo the scheduled procedure.
[2024-01-09 07:07] VITALS: BP 151/66
[2024-01-09 07:17] LABS: Glucose - Point of Care 163 mg/dl (70-99)
[2024-01-09 07:19] LABS: Blood Urea Nitrogen 18 mg/dl (9-20); Calcium 9.1 mg/dl (8.4-10.2); Carbon Dioxide 27 mmol/L (22-30); Chloride 104 mmol/L (98-107); Glucose 173 mg/dl (70-99); Potassium 3.4 mmol/L (3.5-5.1); Sodium 137 mmol/L (135-145); eGFR > 60.00
[2024-01-09 07:51] VITALS: BMI 35.2
--- NOTE | 2024-01-09 09:58 | W.SUR.POST ---
Surgical Immediate Post Op
Note
Pre Op Diagnosis: Symptomatic carotid stenosis
Post Op Diagnosis: Symptomatic carotid stenosis
Procedure Performed: Right carotid endarterectomy with bovine patch pericardium angioplasty
Primary Surgeon: Deon Shirley MD
Assist: CHEYENNE Dobbins
Anesthesia: GETA
Estimated Blood Loss: 25 mL
Fluids: See anesthesia flowsheet
Drains/Shunts: N/A
Specimens/Cultures: Right carotid plaque
Doppler/Duplex/Angio (Y/N): Y, Doppler
Complications: None
Operative Findings: Post procedure patient moves bilateral upper extremities lower extremities to command and spontaneously
--- NOTE | 2024-01-09 09:58 | W.PV.INTER ---
VPI Note
Pre Admission Note
Functional Status: Full
Ambulation: Ambulate Independently
Pre Op Medications
Pre Op ASA: Yes
Pre Op Statin: Yes
Pre Op MARYAN Inhibitor/ARB: No
Pre Op P2y12 Antagonist: Clopidogrel
Pre Op Beta Blockers: No
Pre Op Chronic Anticoagulant: No, for Medical Reason
Pre Op Cilostazol: No
Post Op Medications
Post Op ASA: Yes
Post Op Statin: Yes
Post Op MARYAN Inhibitor/ARB: No
Post Op P2y12 Antagonist: No, for Medical Reason
Post Op Beta Blockers: No
Post Op Chronic Anticoagulant: Dabigatran
Post Op Cilostazol: No
Modified [place]
Pre Op: 1
Post Op: 1
[2024-01-09 10:00] VITALS: BP 151/66
[2024-01-09 10:15] VITALS: BP 130/63
[2024-01-09] MEDS: DILAUDID 0.25 MG IV ×4 (10:27→10:58)
[2024-01-09 10:44] LABS: Hematocrit 34.8 % (39.0-52.0); Hemoglobin 11.8 g/dL (13.0-18.0); Mean Corp Hgb Conc. 33.9 g/dL (33.0-37.0); Mean Corpuscular Hgb 28.2 pg (27.0-31.0); Mean Corpuscular Volume 83.1 fL (80.0-94.0); Mean Platelet Volume 9.8 fL (7.4-10.4); Platelet Count 162 10^3/uL (130-400); Red Blood Cell Count 4.19 10^6/uL (4.70-6.10); Red Cell Dist. Width 15.7 % (11.5-14.5); White Blood Cell Count 7.8 10^3/uL (4.8-10.8)
[2024-01-09] MEDS: NSS 1000 IV ×2 (10:44→22:47)
[2024-01-09 10:48] LABS: Glucose - Point of Care 142 mg/dl (70-99)
--- NOTE | 2024-01-09 11:25 | TRANSFER ---
Patient transferred to ICU, telephone and bedside report given to Shellie, neuro checks and dressing checked on arrival to ICU. Patient awake and restful. Rosita Prieto RN BSN.
[2024-01-09 11:35] VITALS: BMI 35.2
[2024-01-09 11:39] VITALS: BP 156/73
--- NOTE | 2024-01-09 11:45 | CON.INTV ---
Consultation
Consultation Request
Date/Time Consultation Requested: 01/09/2024
Date/Time Consultation Performed: 01/09/2024
Requesting Provider: Dr. Shirley
Performing Provider: Dr. Huber [place]
Reason for Consultation: Status post right carotic endarterectomy
Medical History
-
History of Present Illness:
73-year-old man with history of renal transplant, atrial fibrillation, type 2 diabetes, recent CVA, diagnosed with right carotic stenosis. He was electively admitted for revascularization. Patient underwent right carotic endarterectomy on
01/09/2024 without complications. Patient is in the critical care unit per protocol. Denies any headache or blurry vision. Some discomfort in the incisional area. Denies shortness of breath or chest pain.
Denies nausea or vomiting.
Arterial line is in place slightly hypertensive.
Past Medical History
Past Medical History: Other (See assessment and plan section)
Social History
Tobacco: Non-smoker
Alcohol: None
Drug: None
Personal:
Living: With Family
Family History
Family History: Reviewed & Not Pertinent
Allergies / Home Medications
Allergies
Allergy/AdvReac Type Severity Reaction Status Date / Time
epinephrine [Epinephrine] AdvReac passed out Verified 01/08/24 09:40
everolimus AdvReac Edema, Verified 01/08/24 09:40
Cardiac
Arrhythmia,
Pericarditis
ibuprofen [From Advil] AdvReac Kidney Verified 01/08/24 09:40
transplant
Home Medications
Medication Instructions Recorded Confirmed Last Taken Type
prednisone 5 mg tablet 5 mg PO DAILY Anti-Inflammatory 09/13/20 01/09/24 01/09/24 05:30 History
rosuvastatin 5 mg tablet 5 mg PO HS High cholesterol 09/28/21 01/09/24 01/08/24 21:00 History
magnesium chloride 71.5 mg 143 mg PO BID Electrolyte Repletion 11/16/23 01/09/24 01/08/24 21:00 History
(magnesium chloride)
tablet,delayed release (Slow-Mag)
acetaminophen 500 mg tablet 1,000 mg PO Q6HPRN PRN mild pain 11/18/23 01/08/24 2 Days Ago History
(Tylenol Extra Strength) ~11/16/23
cholecalciferol (vitamin D3) 50 50 mcg PO DAILY@0900 Supplement 11/18/23 01/09/24 01/08/24 09:00 History
mcg (2,000 unit) capsule
insulin glargine 100 unit/mL (3 25 unit SC BID Diabetes 11/18/23 01/09/24 01/08/24 21:00 History
mL) subcutaneous pen (Lantus 12 units
Solostar U-100 Insulin)
tirzepatide 5 mg/0.5 mL 5 mg SC TU Diabetes 11/27/23 01/09/24 01/01/24 17:00 History
subcutaneous pen injector
(Mounjaro)
amiodarone 200 mg tablet 200 mg PO DAILY #30 tabs 12/05/23 01/09/24 01/09/24 05:30 Rx
diltiazem HCl 180 mg 360 mg PO DAILY #30 caps 12/05/23 01/09/24 01/08/24 09:00 Rx
capsule,extended release 24 hr
furosemide 20 mg tablet 20 mg PO DAILY PRN weight gain > 2 12/05/23 01/08/24 Unknown Rx
lbs in 24 hour #30 tabs
metoprolol succinate 100 mg 100 mg PO DAILY #30 tabs 12/05/23 01/09/24 01/09/24 05:30 Rx
tablet,extended release 24 hr
cyclosporine modified 25 mg capsule 50 mg PO HS 01/02/24 01/09/24 01/08/24 21:00 History
cyclosporine modified 25 mg capsule 75 mg PO DAILY 01/02/24 01/09/24 01/09/24 05:30 History
dabigatran etexilate 150 mg capsule 150 mg PO BID 03/04/2101/09/24 01/08/24 21:00 History
potassium chloride 20 mEq 20 meq PO DAILY 01/02/24 01/09/24 01/08/24 09:00 History
tablet,extended
release(part/cryst) (Klor-Con M)
tadalafil 5 mg tablet (Cialis) 5 mg PO DAILY 01/02/24 01/09/24 01/02/24 History
aspirin 81 mg tablet,delayed 81 mg PO DAILY #30 tabs 01/04/24 01/09/24 01/09/24 05:30 Rx
release
clopidogrel 75 mg tablet 75 mg PO DAILY #15 tabs 01/04/24 01/09/24 01/09/24 05:30 Rx
spironolactone 25 mg tablet 12.5 mg PO DAILY #30 tabs 01/04/24 01/09/24 01/08/24 09:00 Rx
polyethylene glycol 3350 17 gram 17 g PO PRN PRN constipation 01/08/24 01/08/24 Unknown History
oral powder packet (HealthyLax)
Review of Systems
-
History Source: Patient
All other systems: Negative unless noted
Vitals / Labs / Diagnostic Testing
Vital Signs
Temp Pulse Resp BP Pulse Ox
97.4 F 62 11 130/63 97
01/09/24 11:09 01/09/24 11:00 01/09/24 11:00 01/09/24 10:15 01/09/24 11:00
Lab Data
01/09/24 10:32
Diagnostic Testing:
Physical Exam
-
HEENT: Normocephalic and Other (Right cervical incision intact. No stridor on exam. No hematoma.)
Cardiovascular: S1/S2 and Regular Rhythm
Respiratory: Clear and Non-Labored Respirations
GI: Soft and Non Distended
Neurology: Awake and Alert
Skin: Warm
General: Comfortable
Assessment
-
Status post right carotid endarterectomy by Dr. Shirley 01/09/2024
Conditions present prior admission:
Hypertension
Atrial fibrillation
Type 2 diabetes
Hyperlipidemia
Prior pericardial effusion
IgG gammopathy
Chronic anemia
Obesity
Obstructive sleep apnea
History of kidney transplant
Prior tonsillectomy
Plan recommendations:
Postoperative surgical intensive care unit monitoring
Supplemental oxygen as needed
Incentive spirometry
Aspiration precautions
Incision is intact, continue to monitor.
-
No evidence for hematoma. No stridor on exam
Continue analgesia, with narcotics. Monitor respiratory status closely in the setting of obstructive sleep apnea.
Neuro and vascular checks per protocol
Vascular surgery following-correspondence and operative notes reviewed
Monitor blood pressure
Allow for mild permissive hypertension first [address] line in place.
Follow hemoglobin
history of kidney transplant: Restart outpatient medications.
On cyclophosphamide and low-dose prednisone.
Follow blood sugars
Insulin supplementation as needed
Diet as tolerated
Gentle IV fluids for today
DVT prophylaxis
Early nutrition
Early mobilization
[2024-01-09 11:51] LABS: Blood Urea Nitrogen 18 mg/dl (9-20); Calcium 8.5 mg/dl (8.4-10.2); Carbon Dioxide 25 mmol/L (22-30); Chloride 104 mmol/L (98-107); Estimated Creatinine Clearance 89 ml/min; Glucose 221 mg/dl (70-99); Potassium 3.4 mmol/L (3.5-5.1); Sodium 135 mmol/L (135-145); eGFR > 60.00
[2024-01-09] MEDS: NITROGLYCERIN PREMIX 250 IV (11:52)
[2024-01-09] MEDS: NOVOLOG FLEXPEN-LOW RESISTANCE SC (12:11)
[2024-01-09] MEDS: DILAUDID 0.5 MG IV (12:23)
--- NOTE | 2024-01-09 12:45 | PTCARENOTE ---
pt reports some difficulty breathing- using mouth appliance for sleep apnea. pt 98% on 2L nasal cannula, lung sounds clear. [facility] and box lidder notified.
[2024-01-09] MEDS: ZOFRAN 4 MG IV (13:45)
--- NOTE | 2024-01-09 13:51 | PTCARENOTE ---
Addendum entered by Shellie Prasad RN 01/09/24 14:44:
time 1145
Original Note:
pt received from pacu post right cea. pt arouses easily to voice, orientedx3. neuro intact. pt has residual from recent cva, right eye blurriness. strength equal bilaterally. pt oriented to room and admission questions completed. SR/SB with 1st
degree block on telemetry heart rate 50-60s. radial pulses easily palpable, bilateral bp pulses weakly palpable. trace lower extremity edema. Right radial arterial line, leveled and zeroed with appropriate waveform. Radial arterial line correlates
with cuff blood pressure. Nitro gtt started for SBP>160 per orders. Pt on 2L nasal cannula, sat 98%. lung sounds clear upper, diminished in bases. Pt wears dental appliance for sleep apnea, to bring in. Hypoactive bowel sounds, tolerating ice
chips and small sips of water. Pt has not voided at this time, urinal provided. 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 intermittent ice applied. Pt reports pain at back of head- prn dilaudid given. at bedside, updated with plan of
care. see worklist for full nursing assessment and interventions.
--- NOTE | 2024-01-09 16:15 | PTCARENOTE ---
pt unable to void, bladder scan 586- straight cathed per protocol for 600 ml clear wilson urine
[2024-01-09 16:52] LABS: Glucose - Point of Care 214 mg/dl (70-99)
[2024-01-09] MEDS: NOVOLOG FLEXPEN-LOW RESISTANCE 2 UNITS SC (17:10)
[2024-01-09] MEDS: TYLENOL 650 MG PO ×2 (17:19→22:47)
[2024-01-09 18:06] VITALS: BP 145/74
--- NOTE | 2024-01-09 18:42 | OR.RPT ---
Operative Report
Operative Report
PROCEDURE DATE: 01/09/2024
Preoperative diagnosis: Symptomatic right carotid artery stenosis
Postoperative diagnosis: Same
Procedure: Right carotid endarterectomy with bovine pericardial patch angioplasty and intraoperative EEG/SSEP monitoring.
Surgeon: Casper
Pie Bottomer: Cyn, required for all aspects of procedure including assistance with traction/countertraction, following of suture line, assistance with closure.
Complications: None
Anesthesia: General
Indications for procedure:
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 In addition patient had multiple acute/subacute infarcts on MRI in the right hemisphere. Discussed revascularization. Carotid
endarterectomy discussed at length. Risk/benefit/alternatives all fully discussed. Patient understood all wish to proceed.
Description of procedure:
Patient was identified brought to the operating room placed on the table in supine position. After the adequate administration of anesthesia and perioperative antibiotics he was prepped and draped in the standard surgical fashion. A standard
preoperative timeout was undertaken and everybody was in agreement the plan. A standard longitudinal incision was made in the right neck that was carried through the skin subcutaneous tissue. Using the electrocautery dissection was carried through
the platysma muscle layer and then alongside the anterior medial border of the sternocleidomastoid muscle. Then using a combination of sharp dissection with the Metzenbaum scissors and electrocautery I dissected along the anterior medial border of
the internal jugular vein. The common facial vein branch was ligated between silk ties and then divided. I then deepened my retraction. The common carotid artery was identified and carefully dissected away from the surrounding structures take
great care to avoid any injury to the structures. A vessel loop was passed around it which was double looped, but not yet tightened. Note the vagus nerve was protected from harm's way. It was clearly seen and protected. It was seen in its usual
course, posterior lateral to the common carotid artery. I then continued my dissection up the common carotid artery to the bulb staying only on the anterior surface of the carotid artery. Then I carried the dissection up to the internal carotid
artery and then to the distal internal carotid artery. I identified where it was soft and carefully circumferentially dissected the internal carotid artery with minimal mobilization and passed a vessel loop around it. There was what appeared to be
a nerve branch coursing over the distal internal carotid artery. This was not the hypoglossal as its course was slightly different. However it was protected nonetheless. The hypoglossal nerve was felt to be more cephalad in our field. The
patient was given an appropriate dose of heparin 100 units/kg. Next I dissected the anterior surface of the external carotid artery and superior thyroid branches. These were then carefully circumferentially dissected with minimal mobilization and
vessel loops passed around these which were double looped but not yet tightened. After 3 minutes of heparin circulation time and confirmation of optimization of the blood pressure with my anesthesiology colleagues, I clamped the distal internal
carotid artery where it was soft. There was no immediate EEG or SSEP changes. After 1 minute of test clamp time there was no changes noted. Therefore at this point, the vessel loops on the external carotid artery and superior thyroid branches
were tightened and the common carotid artery was clamped where it was soft proximally. An arteriotomy was made on the common carotid artery with an 11 blade and extended using a Harden scissor. Was extended the arteriotomy onto the mid to distal
internal carotid artery. There was a friable calcified plaque that caused severe stenosis at the proximal internal carotid artery. As I perform my arteriotomy with the Harden scissor (or extended the arteriotomy) the plaque was fracturing debris.
This lends credence to this having been the atheroembolic source definitively. A [place] was then used to endarterectomized the plaque. An endarterectomy plane was created, and the plaque was then endarterectomized. Distally I feathered the plaque
out to a nice clean endpoint in the distal internal carotid artery. Next I endarterectomized the intima back to normal intima in the common carotid artery, and the intima was cut flush there. I then grasped the plaque and everted plaque out of the
origin of the external carotid artery. The plaque was then sent off for specimen. The origin of the external carotid artery was carefully visualized and any fine debris were removed with fine forceps. Proximal and distal endpoints were then
carefully inspected. Any fine debris was removed with fine forceps, and the intima was noted to be nicely adherent proximally distally. Next any fine debris were removed throughout the endarterectomy bed with fine forceps. I then flushed
heparinized saline. I was very satisfied. Then, I used a bovine pericardial patch to sew a patch angioplasty with a running 6-0 Prolene suture. Prior to completing and tying down my suture line, I backbled sequentially each branch and reclamped
each branch prior to unclamping the next branch. I then irrigated with heparinized saline. Then I completed and tied down my suture line. We then restored flow in the common carotid and external carotid arteries. Finally, we released flow in the
internal carotid artery. There was excellent pulsatile flow in all 3 vessels. There was an excellent Doppler signal in the internal carotid artery distal to the patch with a good normal low resistance Doppler signal. There was a good Doppler
signal in the external carotid artery as well. A couple 6-0 Prolene [id number] sutures were placed along any bleeding points along the suture line. Protamine was given to reverse the heparin. Hemostasis was completely achieved. We then
irrigated and confirmed full hemostasis. I then closed in layers with 2-0 Vicryl layer to reapproximate the sternocleidomastoid muscle, followed by 3-0 Vicryl platysma muscle running layer, followed by 4 Monocryl subcuticular stitch. Dermabond was
applied. The patient tolerated procedure well. He awoke moving all extremities to command with tongue in the midline.
--- NOTE | 2024-01-09 18:46 | PTCARENOTE ---
pt blood pressure 160-170s on 70 mcg/min Nitro- dr Shirley notified, stated okay with blood pressures slightly over 160, can remain on nitro for now continue to titrate, can switch to cardene if needed
[2024-01-09] MEDS: HEPARIN 5000 UNITS SC (19:33)
[2024-01-09] MEDS: LANTUS 0.25 UNITS SC (19:34)
[2024-01-09] MEDS: MAG-TAB SR 84 MG PO (19:34)
--- NOTE | 2024-01-09 20:59 | W.PN.UPDATE ---
Update Note
Progress Note Update
Patient updated nursing that Dr. Emily Sánchez MD at [facility] (via [facility] patient portal on patient's phone), morning dose of cyclosporine to 50mg from 75mg and continue 50mg BID and repeat blood testing with their office in 1 month.
[2024-01-09] MEDS: NEORAL 50 MG PO (21:02)
[2024-01-09] MEDS: CRESTOR 5 MG PO (21:02)
[2024-01-09 23:01] LABS: Glucose - Point of Care 205 mg/dl (70-99)
[2024-01-10] VITALS (32 sets, daily range): BP systolic 138–182; BP diastolic 58–128; BMI 35.1
--- NOTE | 2024-01-10 06:00 | PTCARENOTE ---
pt assessed as documented. alert and oriented x3. hard of hearing. maintained o2 sats in the 90's all night on 2L. pt has sleep apnea, wore his mouth piece all night. NS on the monitor. EKG done this morning. right radial a-line zeroed and
transduced. urinating using the urinal. nitro to maintain a BP 100-160. c/o a mild headache throughout the night Tylenol administered with relief.
[2024-01-10 06:21] LABS: Hemoglobin 10.5 g/dL (13.0-18.0); Mean Corpuscular Hgb 28.8 pg (27.0-31.0); Mean Corpuscular Volume 82.4 fL (80.0-94.0); Mean Platelet Volume 10.1 fL (7.4-10.4); Platelet Count 166 10^3/uL (130-400); Red Blood Cell Count 3.64 10^6/uL (4.70-6.10); Red Cell Dist. Width 15.5 % (11.5-14.5); White Blood Cell Count 8.4 10^3/uL (4.8-10.8)
[2024-01-10 06:30] LABS: APTT 27.7 Sec (23.4-35.0); PT 14.2 Sec (11.4-14.6)
[2024-01-10 06:39] LABS: Blood Urea Nitrogen 15 mg/dl (9-20); Calcium 8.3 mg/dl (8.4-10.2); Carbon Dioxide 24 mmol/L (22-30); Chloride 107 mmol/L (98-107); Estimated Creatinine Clearance 102 ml/min; Glucose 175 mg/dl (70-99); Potassium 3.6 mmol/L (3.5-5.1); Sodium 134 mmol/L (135-145); eGFR > 60.00
[2024-01-10] MEDS: TYLENOL 650 MG PO (06:43)
[2024-01-10] MEDS: HEPARIN 5000 UNITS SC (07:29)
[2024-01-10] MEDS: NEORAL 50 MG PO ×2 (07:30→20:54)
[2024-01-10] MEDS: CARDIZEM CD 360 MG PO (07:30)
[2024-01-10] MEDS: DELTASONE 5 MG PO (07:30)
[2024-01-10] MEDS: ASPIR LOW (ENTERIC COATED) 81 MG PO (07:31)
[2024-01-10] MEDS: PACERONE 200 MG PO (07:31)
[2024-01-10] MEDS: TOPROL XL 100 MG PO (07:31)
[2024-01-10] MEDS: KCL 20 MEQ PO (07:31)
[2024-01-10] MEDS: MAG-TAB SR 84 MG PO ×2 (07:32→20:54)
[2024-01-10] MEDS: ALDACTONE 12.5 MG PO (07:32)
[2024-01-10] MEDS: NOVOLOG FLEXPEN-LOW RESISTANCE 1 UNITS SC (07:39)
[2024-01-10] MEDS: VITAMIN D3 (cholecalciferol) 50 MCG PO (07:39)
[2024-01-10] MEDS: LANTUS 0.25 UNITS SC ×2 (07:39→20:54)
[2024-01-10 07:46] LABS: Glucose - Point of Care 182 mg/dl (70-99)
--- NOTE | 2024-01-10 07:50 | W.PN.VS ---
Addendum entered and electronically signed by Deon Shirley MD 01/10/24 12:30:
Seen and examined with MEAGAN Addison. Agree with findings as noted below. Right neck incision is clean dry and intact. No hematoma. Neurologically no focal deficits, moves all extremities well. Plan/as discussed and noted below.
Original Note:
Today's Communication / Plan
-
Seen and assessed with Dr. Shirley
Assessment/Plan
-
POD 1 Right CEA
Plan:
-DC A-line
-DC IV fluids
-Out of bed/ambulate
-Diet
-PO BP meds, wean off nitro
-possible DC later today
Subjective Data
-
Date of Service: January 10, 2024
Patient seen at bedside this a.m. with Dr. Shirley. No events overnight. No complaints. Nitro drip running.
Objective Data
-
Vital Signs
Temp Pulse Resp BP Pulse Ox
97.6 F 65 12 159/61 96
01/10/24 03:41 01/10/24 07:31 01/10/24 07:00 01/10/24 07:31 01/10/24 07:00
Intake and Output
01/09/24 01/10/24 01/11/24
06:59 06:59 06:59
Intake Total 815.1 / 815.1
Output Total 600 / 600
Balance 215.1 / 215.1
Intake:
Oral fluids 22 /
IV fluids (Total) 793.1 / 793.1
NS 50 / 50
Nitro 43.1 / 43.1
Nss 1,000 ml @ 80 mls/hr IV . 700 / 700
[id number] Rx#:[id number]
Output:
Straight cath output 600 / 600
Lab Results
01/10/24 05:59
01/10/24 05:59
Calcium 8.3 mg/dl (8.4-10.2) L 01/10/24 05:59
Physical Exam
-
AAOx3
No tachypnea on room air
No tachycardia
Abdomen soft
Neck site clean dry and intact, flat, soft
Moves extremities to command
Tongue midline
--- NOTE | 2024-01-10 07:59 | W.DS.TRANS ---
DC Summary - [place]
-
Discharge Instructions:
Discharge Diagnosis/Procedures Right CEA
Diet No restrictions
Activity No strenuous activity
Driving Restrictions Not until seen by your Dr
Bathing Restrictions OK to Shower
Instructions:
Stand-Alone Forms: DC Instr - Vascular OR
Changes to Home Medications: No
Discharge Medications:
DC Medications w/original date entered in [facility]
prednisone 5 mg tablet 5 mg PO DAILY Anti-Inflammatory 09/13/20
rosuvastatin 5 mg tablet 5 mg PO HS High cholesterol 09/28/21
magnesium chloride 71.5 mg (magnesium chloride) tablet,delayed release (Slow-Mag) 143 mg PO BID Electrolyte Repletion 11/16/23
acetaminophen 500 mg tablet (Tylenol Extra Strength) 1,000 mg PO Q6HPRN PRN mild pain 11/18/23
cholecalciferol (vitamin D3) 50 mcg (2,000 unit) capsule 50 mcg PO DAILY@0900 Supplement 11/18/23
insulin glargine 100 unit/mL (3 mL) subcutaneous pen (Lantus Solostar U-100 Insulin) 25 unit SC BID Diabetes 11/18/23
tirzepatide 5 mg/0.5 mL subcutaneous pen injector (Mounjaro) 5 mg SC TU Diabetes 11/27/23
amiodarone 200 mg tablet 200 mg PO DAILY #30 tabs 12/05/23
diltiazem HCl 180 mg capsule,extended release 24 hr 360 mg PO DAILY #30 caps 12/05/23
furosemide 20 mg tablet 20 mg PO DAILY PRN weight gain > 2 lbs in 24 hour #30 tabs 12/05/23
metoprolol succinate 100 mg tablet,extended release 24 hr 100 mg PO DAILY #30 tabs 12/05/23
cyclosporine modified 25 mg capsule 50 mg PO HS KIDNEY TRANSPLANT 01/02/24
cyclosporine modified 25 mg capsule 75 mg PO DAILY KIDNEY TRANSPLANT 01/02/24
dabigatran etexilate 150 mg capsule 150 mg PO BID Blood Clot Prevention/Tx 01/02/24
potassium chloride 20 mEq tablet,extended release(part/cryst) (Klor-Con M) 20 meq PO DAILY Electrolyte Repletion 01/02/24
tadalafil 5 mg tablet (Cialis) 5 mg PO DAILY ED 01/02/24
aspirin 81 mg tablet,delayed release 81 mg PO DAILY #30 tabs 01/04/24
spironolactone 25 mg tablet 12.5 mg PO DAILY #30 tabs 01/04/24
polyethylene glycol 3350 17 gram oral powder packet (HealthyLax) 17 g PO PRN PRN constipation 01/08/24
clopidogrel 75 mg tablet 75 mg PO DAILY Blood Clot Prevention/Tx 01/09/24
Home Medication Changes
Pending Results: No
--- NOTE | 2024-01-10 08:03 | PTCARENOTE ---
Patient received from shift coordinator, presents as assessed. Patient is alert and oriented x3, pleasant. Neuro checks maintained. Chronic right eye blurriness from previous CVA. SR on telemetry, right arterial line maintained. Nitro drip infusing,
adjustments made per protocol. Trace right lower extremity edema, chronic. Patient maintains on 2lnc. Abdomen soft, round, obese, non-tender. Urinal at bedside. Right neck incision CDI, ecchymosis unchanged. Patient offers no complaints presently.
--- NOTE | 2024-01-10 10:49 | CM ---
CM following re: discharge planning.
Discussed in Rounds, reviewed pt's sims, met with pt.
Pt is a 73 year old male, admitted with primary dx of POD 1 Right CEA. According to Vascular surgery, pt is recovering well and will be discharged home this afternoon. Pt is aware, expressed his agreement with discharge. IMM reviewed, placed in
chart, pt has a copy.
Pt reports he lives with spouse in a 2SH, 2 steps to enter, has 3 supportive children. Pt described himself as independent in all areas [employer] EX[employer]PER[employer], drives, works.
Pt stated his spouse will transport home at discharge.
PCP: Naomy Conteh
Pharmacy: [facility] [place].
D/C plan: home with no needs. Spouse to transport.
[2024-01-10] MEDS: NITROGLYCERIN PREMIX 250 IV (10:59)
--- NOTE | 2024-01-10 11:28 | W.PN.INTV ---
Today's Communication / Plan
Recommendations
Wean of nitroglycerin drip
Continue oral antihypertensive
Increase activity as able
Hopefully discharge later today
Assessment
-
Status post right carotid endarterectomy by Dr. Shirley 01/09/2024
Uncontrolled hypertension
Conditions present prior admission:
Hypertension
Atrial fibrillation
Type 2 diabetes
Hyperlipidemia
Prior pericardial effusion
IgG gammopathy
Chronic anemia
Obesity
Obstructive sleep apnea
History of kidney transplant
Prior tonsillectomy
Plan recommendations:
Postoperative surgical intensive care unit monitoring
Stable from the respiratory perspective
Some nocturnal oxygen saturation in the setting of sleep apnea.
Incision is intact, continue to monitor.
No evidence for hematoma. No stridor on exam
Pain is controlled
Neuro and vascular checks per protocol-a stable physical exam.
Vascular surgery following-correspondence and operative notes reviewed
Uncontrolled hypertension, patient states that his blood pressure runs in the 140s at home.
Wean off nitroglycerin with a target of at least 140 systolic.
Continue oral antihypertensive
Wean off nitroglycerin drip.
history of kidney transplant: Restart outpatient medications.
On cyclophosphamide and low-dose prednisone.
Tolerating diet.
Continue with aspiration precautions
DVT prophylaxis
Plan is for discharge later today.
If discharged after nitroglycerin drip is weaned off. Critical care team will sign off.
Subjective Dataa
Subjective Data
Date of Service:
Date of Service: January 10, 2024
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
Subjective:
Denies any acute complaints. Denies nausea, vomiting, headache or shortness of breath.
Overnight blood pressure was elevated, started on nitroglycerin drip.
Review of Systems
GI: Abdominal Pain (n), Nausea (n) and Vomiting (n)
Neuro: Headache (n) and Dizziness (n)
Objective Data
Data Reviewed
Vital Signs / I&O / Oxygen:
Vital Signs
Temp Pulse Resp BP Pulse Ox
98.2 F 71 12 159/61 97
01/10/24 07:57 01/10/24 09:30 01/10/24 09:30 01/10/24 07:31 01/10/24 09:30
Intake and Output
01/09/24 01/10/24 01/11/24
06:59 06:59 06:59
Intake Total 815.1 / 815.1 92 / 92
Output Total 600 / 600 750 / 750
Balance 215.1 / 215.1 -658 / -658
SaO2 97
Nasal Cannula flow liters per 2
minute
Physical Exam
General: Respiratory Distress (n)
HEENT: Normocephalic and Other (Cervical incision is intact. No hematoma or stridor.)
Cardiovascular: S1-S2 and Regular Rhythm
Respiratory: Clear
GI: Soft and Non Distended
Neurology: Awake, Alert, Oriented, AO x 3 and No Motor Deficits
Skin: Warm
Labs/Micro/Reports
Lab Data
01/10/24 05:59
01/10/24 05:59
Laboratory Results
01/10/24
05:59
PT 14.2
INR 1.10
APTT 27.7
[2024-01-10 12:09] LABS: Glucose - Point of Care 253 mg/dl (70-99)
[2024-01-10] MEDS: NOVOLOG FLEXPEN-LOW RESISTANCE 3 UNITS SC (12:52)
[2024-01-10] MEDS: NOVOLOG FLEXPEN-HIGH RESISTANCE 4 UNITS SC (16:36)
[2024-01-10 16:53] LABS: Glucose - Point of Care 225 mg/dl (70-99)
--- NOTE | 2024-01-10 20:00 | PTCARENOTE ---
Assumed care of patient at 1900. Patient POD #1 right CEA, s/p nitro gtt for high blood pressure. Patient Ox3, on RA lung sounds clear sats 97%, NSR on monitor rates in the 60's, RLE trace edema, +PP. Patient with LUE lower arm fistula with +bruit
and thrill. Abdomen round, obese with hypoactive bowel sounds, voids clear yellow urine in urinal. Patient transferred self from chair to bed without any difficulty. Right CEA incision C/D/I, approximated with surgical glue intact, soft to touch,
noted ecchymosis. Patient admits to right eye blurriness from previous hx of CVA. SBP 160-170's, patient asymptomatic. 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 PM medications
given without any difficulty. Right hand PIV removed d/t leaking, right AC PIV patent with blood return, patient with dressing to right wrist s/p Francia, C/D/I. Call andrew within reach, safe environment maintained, care ongoing.
[2024-01-10] MEDS: CRESTOR 5 MG PO (20:54)
[2024-01-10] MEDS: APRESOLINE 10 MG IV (20:54)
[2024-01-10] MEDS: PRADAXA 150 MG PO (20:54)
[2024-01-10] MEDS: MIRALAX 17 GRAMS PO (20:55)
[2024-01-10 23:23] LABS: Glucose - Point of Care 214 mg/dl (70-99)
[2024-01-11] VITALS (13 sets, daily range): BP systolic 124–154; BP diastolic 61–73; BMI 35.1
--- NOTE | 2024-01-11 | PTCARENOTE ---
No changes to physical assessment. SBP 140-160, patient remains asymptomatic. Neuro checks as documented. Call andrew in place, care ongoing.
[2024-01-11 03:56] LABS: Hematocrit 33.2 % (39.0-52.0); Hemoglobin 11.4 g/dL (13.0-18.0); Mean Corp Hgb Conc. 34.3 g/dL (33.0-37.0); Mean Corpuscular Hgb 28.4 pg (27.0-31.0); Mean Corpuscular Volume 82.8 fL (80.0-94.0); Mean Platelet Volume 10.2 fL (7.4-10.4); Platelet Count 169 10^3/uL (130-400); Red Blood Cell Count 4.01 10^6/uL (4.70-6.10); Red Cell Dist. Width 15.9 % (11.5-14.5); White Blood Cell Count 8.7 10^3/uL (4.8-10.8)
--- NOTE | 2024-01-11 04:00 | PTCARENOTE ---
No changes to physical assessment. s/p PRN IV hydralazine patients SBP 130-150, patient asymptomatic. Labs drawn and sent. Call andrew in place, care ongoing.
[2024-01-11 04:19] LABS: Blood Urea Nitrogen 18 mg/dl (9-20); Calcium 8.7 mg/dl (8.4-10.2); Carbon Dioxide 24 mmol/L (22-30); Chloride 109 mmol/L (98-107); Estimated Creatinine Clearance 101 ml/min; Glucose 176 mg/dl (70-99); Potassium 3.7 mmol/L (3.5-5.1); Sodium 136 mmol/L (135-145); eGFR > 60.00
[2024-01-11] MEDS: APRESOLINE 10 MG IV (05:13)
--- NOTE | 2024-01-11 08:00 | PTCARENOTE ---
Assumed care of patient Patient POD #1 right CEA, s/p nitro gtt for high blood pressure. Patient Ox3, on RA lung sounds clear sats 97%, NSR on monitor , RLE trace edema, +PP. Patient with LUE lower arm fistula with +bruit and thrill. Abdomen round,
obese with hypoactive bowel sounds, voids clear yellow urine in urinal. Right CEA incision C/D/I, approximated with surgical glue intact, soft to touch, noted ecchymosis. Patient admits to right eye blurriness from previous hx of CVA. right AC
PIV patent with blood return, Call andrew within reach, safe environment maintained, care ongoing.
--- NOTE | 2024-01-11 08:26 | PN.CDI ---
CDI
- -
CDI:
Physician Documentation Request
Admit Date: 01/09/24 06:18
Dear Vascular Surgery,
Patient admitted for carotid stenosis.
01/08 Update note: 'Patient updated nursing that Dr. Emily Sánchez MD at [facility] (via [facility] patient portal on patient's phone), morning dose of cyclosporine to 50mg from 75mg and continue 50mg BID and repeat blood testing with their office in 1 month.'
01/09 Tobacco Prevention Health Educator PN: 'history of kidney transplant: Restart outpatient medications. On cyclophosphamide and low-dose prednisone.'
Based on the above, could you clarify in the progress notes, the appropriate diagnosis, if significant, that supports the above abnormalities and additional evaluation, monitoring and/or treatment rendered:
Immunocompromised
Normal immunity
Other
Use of terms such as suspected, likely, concern for, or probable (associated with a specific diagnosis that is being evaluated, monitored, or treated as if it exists) are acceptable and can be coded in the inpatient setting, when documented at the
time of discharge.
Thank you,
Kasey Penn RN, BSN
CDI Specialist
Available via [place] text
Please use your independent medical judgment in providing your response.
--- NOTE | 2024-01-11 08:37 | W.PN.VS ---
Addendum entered and electronically signed by Deon Shirley MD 01/11/24 11:40:
Seen and examined with MEAGAN Arceo. Agree with findings as noted below. Patient without significant complaints. Right neck incision is clean dry and intact. No hematoma. Neurologically no focal deficits, moves all extremities well. Tongue midline.
Plan/as discussed and noted below.
Original Note:
Today's Communication / Plan
-
Patient seen and examined at bedside with Dr. Deon Shirley, below plan reviewed with attending.
Assessment/Plan
-
POD 2 Right CEA
Plan:
-Out of bed/ambulate
-Continue diet
-PO BP meds, BP currently at goal
-Continue anticoagulation, discontinue Plavix
-DC later this morning pending toleration of ambulation around the andrade
Subjective Data
-
Date of Service: January 11, 2024
Patient seen and examined at bedside, offers no complaints. Denies nausea, vomiting, fever, chills, and headache. Denies unilateral weakness, vision changes, and difficulty swallowing. Tolerating p.o. intake. Nitro infusion remains off.
Objective Data
-
Vital Signs
Temp Pulse Resp BP Pulse Ox
97.5 F 62 12 124/61 95
01/11/24 08:00 01/11/24 06:00 01/11/24 06:00 01/11/24 06:00 01/11/24 06:00
Intake and Output
01/10/24 01/11/24 01/12/24
06:59 06:59 06:59
Intake Total 815.1 / 815.1 332 / 332
Output Total 600 / 600 4300 / 4300 600 / 600
Balance 215.1 / 215.1 -3968 / -3968 -600 / -600
Intake:
Oral fluids 240 / 240
IV fluids (Total) 793.1 / 793.1 92 / 92
NS 50 / 50
Nitro 43.1 / 43.1
Nss 1,000 ml @ 80 mls/hr IV . 700 / 700 80 / 80
[id number] Rx#:[id number]
Output:
Urine, Voided 4300 / 4300 600 / 600
Straight cath output 600 / 600
Lab Results
01/11/24 03:42
01/11/24 03:42
Calcium 8.7 mg/dl (8.4-10.2) 01/11/24 03:42
Physical Exam
-
AAOx3
No tachypnea on room air
No tachycardia
Abdomen soft
Neck site clean dry and intact, flat, soft
Moves extremities to command
Tongue midline
[2024-01-11] MEDS: ALDACTONE 12.5 MG PO (08:40)
[2024-01-11] MEDS: PRADAXA 150 MG PO (08:41)
[2024-01-11] MEDS: ASPIR LOW (ENTERIC COATED) 81 MG PO (08:41)
[2024-01-11] MEDS: DELTASONE 5 MG PO (08:41)
[2024-01-11] MEDS: KCL 20 MEQ PO (08:41)
[2024-01-11] MEDS: CARDIZEM CD 360 MG PO (08:41)
[2024-01-11] MEDS: PACERONE 200 MG PO (08:42)
[2024-01-11] MEDS: MAG-TAB SR 84 MG PO (08:42)
[2024-01-11] MEDS: VITAMIN D3 (cholecalciferol) 50 MCG PO (08:42)
[2024-01-11] MEDS: NEORAL 50 MG PO ×2 (08:42→08:48)
[2024-01-11] MEDS: TOPROL XL 100 MG PO (08:42)
[2024-01-11] MEDS: NOVOLOG FLEXPEN-HIGH RESISTANCE 2 UNITS SC (08:48)
[2024-01-11 08:56] LABS: Glucose - Point of Care 172 mg/dl (70-99)
[2024-01-11] MEDS: LANTUS 0.25 UNITS SC (08:58)
--- NOTE | 2024-01-11 11:02 | PTCARENOTE ---
PT anxious for discharge, PT walked entire 3rd floor, PT with steady gait, PT denies any complaints, no dizziness, no SOB, CP, visual disturbances,removed R AC int pressure dressing applied assisted PT with dressing, reviewed all D/C instructions
with PT and spouse all questions and concerns answered, PT left with all belongings via wheelchair to spouses vehicle
--- NOTE | 2024-01-11 11:29 | CM ---
CM following re: discharge planning.
Reviewed pt's chart, met with pt.
Discharge order is noted. Pt is aware, expressed his agreement with discharge.
No discharge needs identified at this time. Pt is independent with functional ability.
D/C plan: home with no needs. Spouse to transport.
--- NOTE | 2024-01-11 13:47 | W.DCSUMMARY ---
Discharge Summary
Discharge Data
Date of Admission: 01/09/24
Date of Discharge: 01/11/24
-
Pending Results: No
Hospital Course
Attending: [Dr. Deon Shirley]
Consultants: Pulmonary medicine
Allergies: epinephrine, ibuprofen, everolimus
Procedure with date: Right carotid endarterectomy with bovine pericardial patch angioplasty and intraoperative EEG/SSEP monitoring on 01/09/[address] Deon Shirley
History of present illness: The patient is an 73-year-old male with multiple medical conditions including: carotid stenosis, Atrial fibrillation, hypertension, diabetes, hyperlipidemia, pericardial effusion, pericarditis, IgG gammopathy, anemia,
obesity, sleep apnea. Patient presented on 01/09/2024 for scheduled procedure with Dr. Deon Shirley. Patient presented at baseline health with no reports of recent illness or trauma.
Hospital Course: Briefly, the patient underwent scheduled right carotid endarterectomy without complications, and recovered in PACU. Following recovery phase one and two patient was transferred to intensive care unit per protocol for continued
hemodynamic monitoring. Computer Numerical Control Grinder consulted to aid in medical management from a critical care perspective. POD #1 (01/10/2024) Patient neurologically intact, face symmetrical, and tolerating PO diet. Surgical right neck incision clean, dry, and
intact with suture line well approximated and soft. No evidence of hematoma. Patient with hypertension requiring nitroglycerin infusion overnight to help manage successfully weaned off. Arterial line and IV fluids discontinued. POD #2 (01/11/2024)
patient with blood pressure at goal, he is able to ambulate without difficulty or incident. Patient stable for discharge to home.
Prescriptions and follow up appointment are included in the DC summary electronic news gathering camera person note. All instructions were given to the patient in both written and verbal form and the patient expressed understanding.
Discharge Plan
-
Patient Disposition: Home (Routine Discharge)
Discharge Diagnosis/Procedures: Right carotid endarterectomy
Condition: Good
Diet: No restrictions
Activity: No strenuous activity
Driving Restrictions: Not until seen by your Dr
Bathing Restrictions: OK to Shower
Activity Restrictions/Additional Instructions:
If you experience severe constant headache, weakness to an arm or leg, change in vision, trouble speaking or any stroke-like symptom, call 911 immediately
If you experience swelling, increased bruising, drainage from neck site, or fever, please call the office
Stand Alone Forms: DC Instr - Vascular OR
Referrals:
Marianne Portillo PA-C [Specified Professional Personl] - 01/18/24 10:15 am (Vascular follow up)
Naomy Conteh DO [Family Provider] -
Prescriptions:
Continued
prednisone 5 MG tablet
5 mg PO DAILY
rosuvastatin 5 MG tablet
5 mg PO HS
Slow-Mag 71.5 mg Tablet,Delayed Release (Dr/Ec)
143 mg PO BID
acetaminophen [Tylenol Extra Strength] 500 mg Tablet
1,000 mg PO Q6HPRN PRN (Reason: mild pain)
insulin glargine [Lantus Solostar U-100 Insulin] 100 unit/mL (3 mL) Insulin Pen
25 unit SC BID
cholecalciferol (vitamin D3) 50 mcg (2,000 unit) Capsule
50 mcg PO DAILY@0900
Mounjaro 5 mg/0.5 mL Pen Injector
5 mg SC TU
diltiazem HCl 180 mg Capsule,Extended Release 24hr
360 mg PO DAILY Qty: 30 0RF
metoprolol succinate 100 mg Tablet Extended Release 24 Hr
100 mg PO DAILY Qty: 30 0RF
furosemide 20 mg Tablet
20 mg PO DAILY PRN (Reason: weight gain > 2 lbs in 24 hour) Qty: 30 0RF
amiodarone 200 mg tablet
200 mg PO DAILY Qty: 30 0RF
potassium chloride [Klor-Con M20] 20 mEq tablet,ER particles/crystals
20 meq PO DAILY
tadalafil [Cialis] 5 mg Tablet
5 mg PO DAILY
dabigatran etexilate 150 mg capsule
150 mg PO BID
Hold Instructions: Resume on 01/11/24. till right carotid endarterectomy
cyclosporine modified 25 mg Capsule
50 mg PO HS
cyclosporine modified 25 mg Capsule
75 mg PO DAILY
aspirin 81 mg Tablet,Delayed Release (Dr/Ec)
81 mg PO DAILY Qty: 30 0RF
spironolactone 25 mg Tablet
12.5 mg PO DAILY Qty: 30 0RF
polyethylene glycol 3350 [HealthyLax] 17 gram powder in packet
17 g PO PRN PRN (Reason: constipation)
Discontinued
clopidogrel 75 mg tablet
75 mg PO DAILY
Discharge Orders:
Discharge Patient (As Directed); Ordered 01/11/24
Ordered By: Giselle Arceo
Discharge Date and Time
Discharge Date/Time: 01/11/24 11:05
--- NOTE | 2024-01-11 13:47 | W.DS.TRANS ---
DC Summary - Auto Research Engineer
-
Discharge Instructions:
Discharge Diagnosis/Procedures Right carotid endarterectomy
Diet No restrictions
Activity No strenuous activity
Driving Restrictions Not until seen by your Dr
Bathing Restrictions OK to Shower
Instructions:
Stand-Alone Forms: DC Instr - Vascular OR
Changes to Home Medications: Yes
Discharge Medications:
DC Medications w/original date entered in [employer]
prednisone 5 mg tablet 5 mg PO DAILY Anti-Inflammatory 09/13/20
rosuvastatin 5 mg tablet 5 mg PO HS High cholesterol 09/28/21
magnesium chloride 71.5 mg (magnesium chloride) tablet,delayed release (Slow-Mag) 143 mg PO BID Electrolyte Repletion 11/16/23
acetaminophen 500 mg tablet (Tylenol Extra Strength) 1,000 mg PO Q6HPRN PRN mild pain 11/18/23
cholecalciferol (vitamin D3) 50 mcg (2,000 unit) capsule 50 mcg PO DAILY@0900 Supplement 11/18/23
insulin glargine 100 unit/mL (3 mL) subcutaneous pen (Lantus Solostar U-100 Insulin) 25 unit SC BID Diabetes 11/18/23
tirzepatide 5 mg/0.5 mL subcutaneous pen injector (Mounjaro) 5 mg SC TU Diabetes 11/27/23
amiodarone 200 mg tablet 200 mg PO DAILY #30 tabs 12/05/23
diltiazem HCl 180 mg capsule,extended release 24 hr 360 mg PO DAILY #30 caps 12/05/23
furosemide 20 mg tablet 20 mg PO DAILY PRN weight gain > 2 lbs in 24 hour #30 tabs 12/05/23
metoprolol succinate 100 mg tablet,extended release 24 hr 100 mg PO DAILY #30 tabs 12/05/23
cyclosporine modified 25 mg capsule 50 mg PO HS KIDNEY TRANSPLANT 01/02/24
cyclosporine modified 25 mg capsule 75 mg PO DAILY KIDNEY TRANSPLANT 01/02/24
dabigatran etexilate 150 mg capsule 150 mg PO BID Blood Clot Prevention/Tx 01/02/24
potassium chloride 20 mEq tablet,extended release(part/cryst) (Klor-Con M) 20 meq PO DAILY Electrolyte Repletion 01/02/24
tadalafil 5 mg tablet (Cialis) 5 mg PO DAILY ED 01/02/24
aspirin 81 mg tablet,delayed release 81 mg PO DAILY #30 tabs 01/04/24
spironolactone 25 mg tablet 12.5 mg PO DAILY #30 tabs 01/04/24
polyethylene glycol 3350 17 gram oral powder packet (HealthyLax) 17 g PO PRN PRN constipation 01/08/24
Home Medication Changes
stopped: Plavix 75 mg p.o. daily
Restarted:dabigatran etexilate 150 mg capsule 150 mg PO BID
Pending Results: No
--- NOTE | 2024-01-14 08:43 | W.PN.UPDATE ---
Update Note
Progress Note Update
CDI:
Physician Documentation Request
Admit Date: 01/09/24 06:18
Patient admitted for carotid stenosis.
01/08 Update note: 'Patient updated nursing that Dr. Emily Sánchez MD at [facility] (via [facility] patient portal on patient's phone), morning dose of cyclosporine to 50mg from 75mg and continue 50mg BID and repeat blood testing with their office in 1 month.'
01/09 Permit Technician PN: 'history of kidney transplant: Restart outpatient medications. On cyclophosphamide and low-dose prednisone.'
Based on the above, could you clarify in the progress notes, the appropriate diagnosis, if significant, that supports the above abnormalities and additional evaluation, monitoring and/or treatment rendered:
Other. Above notes pertain to correcting patient's home med list to include their kidney transplant medication regimen. This is not new or changed.
== END 2024-01-11 11:05 | disposition home or self-care (01) | DRG 38 ==
LOC: ICU 06:18
PROVIDERS: Nurse Practitioner; ADMITTING PHYSICIAN Surgery Vascular Surgery; CONSULT PHYSICIAN Internal Medicine Critical Care Medicine; FAMILY PHYSICIAN Family Medicine
PROC: 03CK0ZZ Extirpation of Matter from Right Internal Carotid Artery, Open Approach (ICD-10-PCS; 2024-01-09)
PROC: 03UK0KZ Supplement Right Internal Carotid Artery with Nonautologous Tissue Substitute, Open Approach (ICD-10-PCS; 2024-01-09)
DX: I65.21 Occlusion and stenosis of right carotid artery (principal); H34.9 Unspecified retinal vascular occlusion; H54.7 Unspecified visual loss; I48.91 Unspecified atrial fibrillation; I10 Essential (primary) hypertension; G47.33 Obstructive sleep apnea (adult) (pediatric); E66.9 Obesity, unspecified; E11.9 Type 2 diabetes mellitus without complications; D47.2 Monoclonal gammopathy; Z79.02 Long term (current) use of antithrombotics/antiplatelets; Z79.4 Long term (current) use of insulin; Z79.82 Long term (current) use of aspirin; Z68.35 Body mass index [BMI] 35.0-35.9, adult
CPT/HCPCS: 88304; 88311; 35301; 71045; 80048; 82962; 85027; 85610; 85730; 86850; 86900; 86901; 93005

== ENCOUNTER → 2024-02-01 13:27 | Outpatient (REF) | payer MEDICARE, OTHER, SELFPAY | LOC: RAD 13:27 | PROVIDERS: ATTENDING PHYSICIAN Family Medicine | DX: Z79.01 Long term (current) use of anticoagulants (principal); Z86.73 Personal history of transient ischemic attack (TIA), and cerebral infarction without residual deficits | CPT/HCPCS: 70450 ==

== ENCOUNTER → 2024-02-13 12:51 | Outpatient (REF) | payer MEDICARE, OTHER, SELFPAY | LOC: RAD 12:51 | PROVIDERS: ATTENDING PHYSICIAN Registered Nurse; FAMILY PHYSICIAN Family Medicine | DX: I65.29 Occlusion and stenosis of unspecified carotid artery (principal); I65.23 Occlusion and stenosis of bilateral carotid arteries | CPT/HCPCS: 93880 ==

== ENCOUNTER 2024-03-04 14:12 | Emergency (ER) | payer MEDICARE, OTHER, SELFPAY ==
[2024-03-04 14:16] VITALS: BP 165/66
--- NOTE | 2024-03-04 14:50 | ED.GENMED ---
History of Present Illness
<Nieves Panda PA-C - Last Filed: 03/04/24 18:20>
General
Chief Complaint: Head Injury
Source: patient
Exam Limitations: none
Time Seen by Provider: 03/04/24 14:38
Nursing documentation reviewed up to this point in time: agreed with
Travel History
Have you had any contact with someone who has COVID-19?: No
Do you have any symptoms of coronavirus? Fever > 100 degrees, chills, cough, shortness of breath, sore throat, loss of taste or smell, muscle aches, or headache?: No
History of Present Illness
History of Present Illness:
Patient is a 73-year-old male with history CVA, atrial fibrillation, hypertension, hyperlipidemia presenting for evaluation of head injury. Patient states that around 1:30 PM today he fell backwards striking the back of his head on the garage
floor. He describes sitting in a chair when he went to reach back to grab something when the entire chair flipped. This fall was unwitnessed, although patient denies any loss of consciousness. Patient reports a mild headache and some 'brain fog
'. He denies any retrograde amnesia. He denies any visual changes, neck pain, confusion. Patient denies sustaining any other injuries in the fall.
Patient was able to get up independently and drive himself approximately 30 miles this emergency department.
Patient does take Pradaxa
Past History
<Nieves Panda PA-C - Last Filed: 03/04/24 18:20>
Past History
ED Past Medical History: HTN, IDDM and Renal failure
ED Past Surgical History: Other (Renal transplant)
Social History
Tobacco: Non-smoker
Alcohol: Occasional
Drug: None
Personal:
Living: with family
Employment: Employed
Family History
Family History: Other
Phy Exam
<Nieves Panda PA-C - Last Filed: 03/04/24 18:20>
Physical Exam
Physical Exam:
Vitals: Patient's vital signs are stable
General: Patient is well appearing, no acute distress
Skin: Warm and dry, no rashes or lesions
Head: Normocephalic, atraumatic; no lacerations or contusions
Eyes: Pulls equal round and reactive to light bilaterally. sclera nonicteric. EOMs intact. No nystagmus.
Neck: No cervical spine or midline spinal tenderness, full range of motion of neck
Cardiac: Regular rate and rhythm, no murmurs.
Pulm: Normal respiratory effort, no wheezes, rales, rhonchi heard on exam.
Abdomen: No abdominal tenderness.
Extremities: No evidence of cyanosis or edema
Neuro: AAOx3. CN II-XII intact. No focal neurologic deficits. Strength 5 out of 5 in upper and lower extremities. Normal finger-nose. Sensation fully intact
Psychiatric: Normal affect.
Course
<Nieves Panda PA-C - Last Filed: 03/04/24 18:20>
Orders/Labs/Results
Orders:
Orders
03/04/24 14:21
CT Head W/o Iv Contrast Urgent
Comment:
Reason For Exam: head strike +thinners
03/04/24 14:51
Acetaminophen [Tylenol] 650 mg PO NOW STA
Vital Signs
Initial and Last Documented VS:
Initial Vital Signs
Temp Pulse Resp BP Pulse Ox
98.3 F 74 20 165/66 97
03/04/24 14:16 03/04/24 14:16 03/04/24 14:16 03/04/24 14:16 03/04/24 14:16
Last Documented Vital Signs
Temp Pulse Resp BP Pulse Ox
98.3 F 74 20 165/66 97
03/04/24 14:16 03/04/24 14:16 03/04/24 14:16 03/04/24 14:16 03/04/24 14:16
<Moo Lazo DO - Last Filed: 03/04/24 14:57>
Orders/Labs/Results
Orders:
Orders
03/04/24 14:21
CT Head W/o Iv Contrast Urgent
Comment:
Reason For Exam: head strike +thinners
03/04/24 14:51
Acetaminophen [Tylenol] 650 mg PO NOW STA
Vital Signs
Initial and Last Documented VS:
Initial Vital Signs
Temp Pulse Resp BP Pulse Ox
98.3 F 74 20 165/66 97
03/04/24 14:16 03/04/24 14:16 03/04/24 14:16 03/04/24 14:16 03/04/24 14:16
Last Documented Vital Signs
Temp Pulse Resp BP Pulse Ox
98.3 F 74 20 165/66 97
03/04/24 14:16 03/04/24 14:16 03/04/24 14:16 03/04/24 14:16 03/04/24 14:16
<Nieves Panda PA-C - Last Filed: 03/04/24 18:20>
MDM/Problems Addressed
Differential Diagnosis Includes:
Not limited to: Contusion, concussion, intraparenchymal bleed, doubt skull fracture
MDM/Problems Addressed:
Patient is a 73-year-old male on Pradaxa presenting for evaluation of head injury. Patient had posterior head strike after falling backwards in chair about 2 hours ago. No loss of consciousness. Mild headache, otherwise asymptomatic. Does
complain of some mild left shoulder pain which has been there for a few weeks�no obvious deformity or left upper extremity weakness/ evidence of nerve impingement. Vital signs are stable. Exam as above. He has no signs of head trauma on exam.
There are no focal neurologic deficits on exam. Head CT was performed in triage given patient is anticoagulated. Report is pending. Will give Tylenol for headache.
Head CT shows no evidence of intracranial bleed, fracture. Suspect this is likely a mild concussion. Stable for discharge with return precautions, Tylenol for pain. Patient comfortable with plan-will follow-up with PCP in a few days. All
questions answered.
Chronic conditions affecting care:
History CVA, atrial fibrillation on Pradaxa
Acute Exacerbation and/or Progression of Chronic Illness:
N/A
<Nieves Panda PA-C - Last Filed: 03/04/24 18:20>
*Radiology
Radiology exam reviewed: preliminary read by ED provider and radiology read reviewed
*Pulse Oximetry
Patient hypoxic: no
*EKG
Interpreted by ED Provider?: NA
*Mobile Lab Technician Interpretation
Rate: Mobile Lab Technician- N/A
*Critical Care Note
Total Time (30-74mins, 75-104mins- exclusive of procedures): Not Applicable
ED Attending Note
<Nieves Panda PA-C - Last Filed: 03/04/24 18:20>
-
Portions of this chart may have been created with voice recognition software.� Occasional wrong word or��sound alike� substitutions may have occurred due to the inherent limitations of voice recognition software.
<Moo Lazo DO - Last Filed: 03/04/24 14:57>
ED Attending Note
Patient seen and examined by attending physician: Yes
I performed the substantive portion of visit, reviewed & personally made and approve the management plan that is documented in note by myself or SHONA.: Yes
ED Attending Note:
I have seen and evaluated the patient with a [id number] encounter. I have spoken to the advance practicer provider and involved in the medical history, the physical exam, medical decision making.
Evaluation and management service: agree unless noted differently below.
Results interpretation: agree unless noted differently below.
Focused HPI: 73-year-old male presenting with minor head trauma. Patient was on a wheeled chair and he reached backwards and hit the back of his head. No loss of consciousness
Physical exam: No scalp contusion noted. Patient planes of mild left shoulder pain. There is mild tenderness with left trapezius but no nerve involvement or upper extremity weakness
Medical Decision Making: CT head negative. Discussed return precautions
Discharge Plan
Departure
Patient Disposition: Home (Routine Discharge)
Date of Disposition: 03/04/24
Time of Disposition: 14:57
Patient with high blood pressure during this ER visit?: Yes
Condition: Good
Covid-19: Not Applicable
Discharge Problem:
Minor head injury
Instructions: Head Injury in Adults (DC), Minor Head Injury (DC), BLOOD PRESSURE
Prescriptions:
No Action
prednisone 5 MG tablet
5 mg PO DAILY
rosuvastatin 5 MG tablet
5 mg PO HS
Slow-Mag 71.5 mg Tablet,Delayed Release (Dr/Ec)
143 mg PO BID
acetaminophen [Tylenol Extra Strength] 500 mg Tablet
1,000 mg PO Q6HPRN PRN (Reason: mild pain)
insulin glargine [Lantus Solostar U-100 Insulin] 100 unit/mL (3 mL) Insulin Pen
25 unit SC BID
cholecalciferol (vitamin D3) 50 mcg (2,000 unit) Capsule
50 mcg PO DAILY@0900
Mounjaro 5 mg/0.5 mL Pen Injector
5 mg SC TU
diltiazem HCl 180 mg Capsule,Extended Release 24hr
360 mg PO DAILY Qty: 30 0RF
metoprolol succinate 100 mg Tablet Extended Release 24 Hr
100 mg PO DAILY Qty: 30 0RF
furosemide 20 mg Tablet
20 mg PO DAILY PRN (Reason: weight gain > 2 lbs in 24 hour) Qty: 30 0RF
amiodarone 200 mg tablet
200 mg PO DAILY Qty: 30 0RF
potassium chloride [Klor-Con M20] 20 mEq tablet,ER particles/crystals
20 meq PO DAILY
tadalafil [Cialis] 5 mg Tablet
5 mg PO DAILY
dabigatran etexilate 150 mg capsule
150 mg PO BID
Hold Instructions: Resume on 01/11/24. till right carotid endarterectomy
cyclosporine modified 25 mg Capsule
50 mg PO HS
cyclosporine modified 25 mg Capsule
75 mg PO DAILY
aspirin 81 mg Tablet,Delayed Release (Dr/Ec)
81 mg PO DAILY Qty: 30 0RF
spironolactone 25 mg Tablet
12.5 mg PO DAILY Qty: 30 0RF
polyethylene glycol 3350 [HealthyLax] 17 gram powder in packet
17 g PO PRN PRN (Reason: constipation)
Activity Restrictions/Additional Instructions:
-Return to the emergency department with severe headache, severe neck pain, intractable nausea/vomiting, visual changes, altered mental status, persistent dizziness, worsening in current symptoms, or any other concerns
-You can take Tylenol as needed for headache. Is important stay well-hydrated. You should stay well rest, take it easy over the next week.
-You should follow-up with your primary care provider in 3 to 5 days to ensure symptoms are improving.
Interventions
Interventions:
*Risk Screen - Suicide Last Done: 03/04/24 14:16
*General Assessment Last Done: 03/04/24 14:16
*Neglect/Abuse Screening Last Done: 03/04/24 14:16
ED- Fall Risk Assessment Last Done: 03/04/24 14:56
*Nursing Disposition Last Done: 03/04/24 15:44
ED- Neurological Assessment Last Done: 03/04/24 14:56
ED-Skin Assessment Last Done: 03/04/24 14:56
Discharge Date and Time
Discharge Date/Time: 03/04/24 15:45
Print Language: [id number]
[2024-03-04] MEDS: TYLENOL 650 MG PO (15:15)
== END 2024-03-04 15:45 | disposition home or self-care (01) ==
LOC: EMR 14:12
PROVIDERS: EMERGENCY PHYSICIAN Student in an Organized Health Care Education/Training Program; FAMILY PHYSICIAN Family Medicine
DX: S09.90XA Unspecified injury of head, initial encounter (principal); W19.XXXA Unspecified fall, initial encounter; I48.91 Unspecified atrial fibrillation; I10 Essential (primary) hypertension; Z86.73 Personal history of transient ischemic attack (TIA), and cerebral infarction without residual deficits
CPT/HCPCS: 99284; 70450

== ENCOUNTER 2024-04-24 18:20 | Emergency (ER) | payer MEDICARE, OTHER, SELFPAY ==
[2024-04-24 18:23] VITALS: BP 151/71
--- NOTE | 2024-04-24 20:47 | ED.MUSCINJ ---
HPI-Injury
General
Chief Complaint: Musculo-Skeletal Complaint
Source: patient
Exam Limitations: none
Time Seen by Provider: 04/24/24 20:43
Nursing documentation reviewed up to this point in time: agreed with
History of Present Illness-Injury
Is this injury a work related problem?: No
Is pt an associate of [facility]/[place]?: No
Initial Injury comments:
73-year-old male presents emergency department after hitting his right eyebrow or a few days ago and having increasing pain. He notes it is little bit swollen. He hit it again today and the pain was worse.
Past History
Past History
ED Past Medical History: HTN, IDDM and Renal failure
ED Past Surgical History: Other (Renal transplant)
Social History
Tobacco: Non-smoker
Alcohol: Occasional
Drug: None
Personal:
Living: with family
Employment: Employed
Family History
Family History: Other
Review of Systems
Review of Systems
Allergies reviewed?: No
Musculoskeletal: Reports muscle pain
Musculoskeletal Injury Exam
Musculoskeletal Injury Exam
Right Arm:
Pain with Movement?: None
Tender to palpation?: Mild
Soft tissue swelling?: Moderate
External deformity and angulation?: None
Joint effusion?: None
Contusion?: None
Hematoma-local bleeding into tissue?: None
Strain- Sprain- Tear (Connective tissue injury)?: Moderate
Crepitus with movement?: No
Joint instability?: No
Malalignment/deformity?: No
Range of motion: Full
Distal skin color and temperature: normal-warm & good color
Capillary Refill: normal
Normal distal neurovascular exam?: Yes
Peripheral Pulses: brachial (right): 4+, radial (left): 4+ and radial (right): 4+
Phy Exam
Physical Exam
Physical Exam:
No acute distress
Injury Course
Orders/Labs/Results
Orders:
Orders
04/24/24 18:26
Humerus, Right 2 Views [CR Humerus - Right Min 2 View*] Urgent
Comment:
Reason For Exam: pain
MDM/Problems Addressed
Differential Diagnosis Includes:
Fracture, DVT, tricep tear
MDM/Problems Addressed:
73-year-old male with right tricep tear versus strain. Follow-up with orthopedics. Return precautions given.
Chronic conditions affecting care: Arrhythmia
Acute Exacerbation and/or Progression of Chronic Illness: Arrhythmia
*Radiology
Radiology exam reviewed: radiology read reviewed (Right humerus x-ray no acute findings)
*Pulse Oximetry
Patient hypoxic: no
*EKG
Interpreted by ED Provider?: NA
*Flight Controls Engineer Interpretation
Rate: Flight Controls Engineer- N/A
*Critical Care Note
Total Time (30-74mins, 75-104mins- exclusive of procedures): Not Applicable
Patient Management
Social determinants of health affecting care: Living situation
Escalation/DeEscalation of care consider admission/obs:
Admit not indicated
ED Attending Note
-
Portions of this chart may have been created with voice recognition software.� Occasional wrong word or��sound alike� substitutions may have occurred due to the inherent limitations of voice recognition software.
Discharge Plan
Departure
Patient Disposition: Home (Routine Discharge)
Date of Disposition: 04/24/24
Time of Disposition: 20:55
Patient with high blood pressure during this ER visit?: Yes
Condition: Good
Discharge Problem:
Strain of right triceps muscle
Instructions: BLOOD PRESSURE, STRAINS
Prescriptions:
No Action
prednisone 5 MG tablet
5 mg PO DAILY
rosuvastatin 5 MG tablet
5 mg PO HS
Slow-Mag 71.5 mg Tablet,Delayed Release (Dr/Ec)
143 mg PO BID
acetaminophen [Tylenol Extra Strength] 500 mg Tablet
1,000 mg PO Q6HPRN PRN (Reason: mild pain)
insulin glargine [Lantus Solostar U-100 Insulin] 100 unit/mL (3 mL) Insulin Pen
25 unit SC BID
cholecalciferol (vitamin D3) 50 mcg (2,000 unit) Capsule
50 mcg PO DAILY@0900
Mounjaro 5 mg/0.5 mL Pen Injector
5 mg SC TU
diltiazem HCl 180 mg Capsule,Extended Release 24hr
360 mg PO DAILY Qty: 30 0RF
metoprolol succinate 100 mg Tablet Extended Release 24 Hr
100 mg PO DAILY Qty: 30 0RF
furosemide 20 mg Tablet
20 mg PO DAILY PRN (Reason: weight gain > 2 lbs in 24 hour) Qty: 30 0RF
amiodarone 200 mg tablet
200 mg PO DAILY Qty: 30 0RF
potassium chloride [Klor-Con M20] 20 mEq tablet,ER particles/crystals
20 meq PO DAILY
tadalafil [Cialis] 5 mg Tablet
5 mg PO DAILY
dabigatran etexilate 150 mg capsule
150 mg PO BID
Hold Instructions: Resume on 01/11/24. till right carotid endarterectomy
cyclosporine modified 25 mg Capsule
50 mg PO HS
cyclosporine modified 25 mg Capsule
75 mg PO DAILY
aspirin 81 mg Tablet,Delayed Release (Dr/Ec)
81 mg PO DAILY Qty: 30 0RF
spironolactone 25 mg Tablet
12.5 mg PO DAILY Qty: 30 0RF
polyethylene glycol 3350 [HealthyLax] 17 gram powder in packet
17 g PO PRN PRN (Reason: constipation)
Referrals:
Naomy Conteh DO [Family Provider] - Call in 1-3 days for appt
Eben England MD [Active] - Call in 1-3 days for appt
Interventions
Interventions:
*Risk Screen - Suicide Last Done: 04/24/24 18:23
*General Assessment Last Done: 04/24/24 18:23
*Neglect/Abuse Screening Last Done: 04/24/24 18:23
ED- Fall Risk Assessment Last Done: 04/24/24 20:18
*ED COVID-19 Vaccine History Last Done: 04/24/24 18:23
*Nursing Disposition Last Done: 04/24/24 21:03
ED-Musculoskeletal Assessment Last Done: 04/24/24 20:18
Discharge Date and Time
Discharge Date/Time: 04/24/24 21:04
Print Language: [place]
== END 2024-04-24 21:04 | disposition home or self-care (01) ==
LOC: EMR 18:20
PROVIDERS: EMERGENCY PHYSICIAN Emergency Medicine; FAMILY PHYSICIAN Family Medicine
DX: S46.311A Strain of muscle, fascia and tendon of triceps, right arm, initial encounter (principal); X58.XXXA Exposure to other specified factors, initial encounter; E11.9 Type 2 diabetes mellitus without complications; I10 Essential (primary) hypertension; I48.91 Unspecified atrial fibrillation; E78.5 Hyperlipidemia, unspecified; G47.30 Sleep apnea, unspecified; H35.30 Unspecified macular degeneration; Z94.0 Kidney transplant status; Z79.4 Long term (current) use of insulin; Z86.73 Personal history of transient ischemic attack (TIA), and cerebral infarction without residual deficits; Z85.828 Personal history of other malignant neoplasm of skin; Z87.891 Personal history of nicotine dependence
CPT/HCPCS: 99283; 73060

== ENCOUNTER → 2024-07-29 19:18 | Outpatient (REF) | payer MEDICARE, OTHER, SELFPAY | LOC: PAVMRI 19:18 | PROVIDERS: ATTENDING PHYSICIAN Orthopaedic Surgery; FAMILY PHYSICIAN Family Medicine | DX: S46.011A Strain of muscle(s) and tendon(s) of the rotator cuff of right shoulder, initial encounter (principal) | CPT/HCPCS: 73221 ==

== ENCOUNTER → 2024-08-04 14:03 | Outpatient (REF) | payer MEDICARE, OTHER, SELFPAY | LOC: DHVS 14:03 | PROVIDERS: ATTENDING PHYSICIAN Surgery Vascular Surgery; FAMILY PHYSICIAN Family Medicine | DX: I65.29 Occlusion and stenosis of unspecified carotid artery (principal); I65.23 Occlusion and stenosis of bilateral carotid arteries | CPT/HCPCS: 93880 ==

== ENCOUNTER → 2024-11-03 15:09 | Outpatient (REF) | payer MEDICARE, OTHER, SELFPAY | LOC: RAD 15:09 | PROVIDERS: ATTENDING PHYSICIAN Nurse Practitioner Family | DX: Z01.818 Encounter for other preprocedural examination (principal) | CPT/HCPCS: 93005 ==

== ENCOUNTER → 2025-02-11 14:16 | Outpatient (REF) | payer MEDICARE, OTHER, SELFPAY | LOC: DHVS 14:16 | PROVIDERS: ATTENDING PHYSICIAN Surgery Vascular Surgery; FAMILY PHYSICIAN Family Medicine | DX: I65.23 Occlusion and stenosis of bilateral carotid arteries (principal) | CPT/HCPCS: 93880 ==

== ENCOUNTER → 2025-08-18 12:57 | Outpatient (REF) | payer MEDICARE, OTHER, SELFPAY | LOC: RCS 12:57 | PROVIDERS: ATTENDING PHYSICIAN Internal Medicine Cardiovascular Disease; FAMILY PHYSICIAN Family Medicine | DX: I50.32 Chronic diastolic (congestive) heart failure (principal) | CPT/HCPCS: 93306 ==

== ENCOUNTER → 2025-09-01 06:32 | Outpatient (REF) | payer MEDICARE, OTHER, SELFPAY | LOC: RAD 06:32 | PROVIDERS: ATTENDING PHYSICIAN Surgery Vascular Surgery; FAMILY PHYSICIAN Family Medicine | DX: I65.29 Occlusion and stenosis of unspecified carotid artery (principal); I65.23 Occlusion and stenosis of bilateral carotid arteries | CPT/HCPCS: 93880 ==